=== PATIENT | female | born 1945 | race Caucasian/White ===

== ENCOUNTER → 2019-01-23 | Outpatient (CLI) | payer MEDICARE ==
[~2019-01-23] MED LIST: AMOX1TAB10 PO; ASPI-612 PO; BUME2TAB3 PO; CRESTOR40 MG PO; FERR325T14 PO; GUAI600T47 PO; HYDR-2761 PO; INSU100I11 SQ; INSU100I13 SQ; METO-239 PO; WARF4TAB64 PO; [UNRECOGNIZED DRUG - CODE] PO
--- NOTE | 2019-01-23 14:37 | RAD ---
Left second toe, 3 views, 01/23/2019: HISTORY: Diabetic ulcer The second toe is not optimally visualized on the PA or oblique projections due to plantar flexion at the PIP joint level. It is obscured on the lateral view due to the other overlying toes. On the oblique view there is a suggestion of bone destruction involving the terminal tuft of the distal phalanx. The appearance is compatible with osteomyelitis. Electronically signed by: Blake Robertson MD (01/23/2019 2:34 PM) [facility]
== END | disposition home or self-care (01) ==
LOC: PMGWOUND 10:02
PROVIDERS: ATTEND Emergency Medicine Undersea and Hyperbaric Medicine
DX: E11.621 Type 2 diabetes mellitus with foot ulcer (principal); L97.522 Non-pressure chronic ulcer of other part of left foot with fat layer exposed; L97.512 Non-pressure chronic ulcer of other part of right foot with fat layer exposed; L97.412 Non-pressure chronic ulcer of right heel and midfoot with fat layer exposed; L97.421 Non-pressure chronic ulcer of left heel and midfoot limited to breakdown of skin; E11.51 Type 2 diabetes mellitus with diabetic peripheral angiopathy without gangrene; L84 Corns and callosities; E78.5 Hyperlipidemia, unspecified; I50.9 Heart failure, unspecified; F41.9 Anxiety disorder, unspecified; F32.9 Major depressive disorder, single episode, unspecified; F17.200 Nicotine dependence, unspecified, uncomplicated; J44.9 Chronic obstructive pulmonary disease, unspecified; Z79.4 Long term (current) use of insulin
CPT/HCPCS: 11042; 73660; 93923; 97597

== ENCOUNTER → 2019-02-04 | Outpatient (CLI) | payer MEDICARE ==
[2019-02-04 12:20] LABS: PROTHROMBIN TIME PATIENT 39.2 SEC (11.7-14.0)
== END | disposition home or self-care (01) ==
LOC: LAB 11:55
PROVIDERS: ATTEND Internal Medicine Cardiovascular Disease
DX: R79.1 Abnormal coagulation profile (principal); I48.2 Chronic atrial fibrillation
CPT/HCPCS: 36415; 85610

== ENCOUNTER → 2019-02-06 | Outpatient (CLI) | payer MEDICARE ==
--- NOTE | 2019-02-06 12:25 | RAD ---
Examination: MRI of the left forefoot without contrast HISTORY: History of nonhealing ulcer second toe COMPARISON: None available. TECHNIQUE: Multiplanar, multisequence MR imaging of the left forefoot was performed without contrast. FINDINGS: There is cortical destructive changes identified in the distal phalanx of the second toe with surrounding increased intermediate T1 signal with corresponding increased T2 signal likely ostial myelitis. There is mild increased T2 signal identified in the soft tissue of the distal forefoot likely edema. There is probable small skin ulcer identified in the distal aspect of the second toe. Mild degenerative changes identified in the tarsometatarsal joints. The Lisfranc ligament appears intact. IMPRESSION: 1. Findings consistent with osteomyelitis of the distal phalanx of the second toe. Electronically signed by: Luis Duffy MD (02/06/2019 12:22 PM) [facility]
--- NOTE | 2019-02-06 14:38 | RAD ---
CHEST AP ONLY Clinical indications: MRI CLEARANCE FOR POSSIBLE PACEMAKER LEADS COMPARISON: October 02, 2011. Findings: Bilateral interstitial and nodular lung disease is evident which is chronic. It appears slightly more prominent and this most likely is due to technique. No lung consolidation or lung mass or pleural effusion is seen. No pneumothorax is evident. The heart size is chronically enlarged. The patient has had a sternotomy and cardiac valve replacement surgery since the previous study. The previously seen bipolar atrioventricular pacemaker has been removed. The mediastinum and pulmonary vasculature are stable. IMPRESSION: Since the previous study, the pacemaker has been removed. Therefore, the patient is cleared for MRI. Cardiomegaly. The patient has had a sternotomy and cardiac valve replacement since the previous study. Chronic interstitial and nodular lung disease bilaterally. It appears more prominent in comparison to the previous study and this most likely is due to differences in technique unless there are clinical findings indicative of acute lung infiltrates. Electronically signed by: Delmar Knight MD (02/06/2019 2:35 PM) [facility]
== END | disposition home or self-care (01) ==
LOC: MRI 10:28
PROVIDERS: ATTEND Emergency Medicine Undersea and Hyperbaric Medicine
DX: L97.529 Non-pressure chronic ulcer of other part of left foot with unspecified severity (principal); M19.072 Primary osteoarthritis, left ankle and foot; J84.9 Interstitial pulmonary disease, unspecified; I51.7 Cardiomegaly
CPT/HCPCS: 71045; 73718

== ENCOUNTER 2019-02-11 12:26 | Inpatient (IN) | payer MEDICARE ==
[~2019-02-11] VITALS: Ht 154.9 cm; Wt 79.0 kg
[2019-02-11 13:00] VITALS: BP 124/69
--- NOTE | 2019-02-11 13:30 | NUR ---
Wound care: Patient seen per wound care in the wound clinic today for follow up visit. Patient was febrile, stated she was not feeling well for the past 2 days, patient's breathing is shallow, with an elevated heart rate of 103 and B/P of 91/41 with moderate amount of pain in her bilateral lower extremities. In the clinic the dressings removed and all wounds cleansed, assessed, measured, and pictured. Wounds have deteriorated since last visit, with mild odor and purulent drainage. Spoke with Dr. Robles regarding findings. Dr. Robles recommending hospital admission. Patient agreeable. Dr. Robles notified Dr. Vincent and warehouse sorter. Patient to be admitted. All diabetic wounds on bilateral feet redressed with Iodoflex, Aquacel Ag, ABDs, and Kerlix. Photos, dressing change instructions, extra Iodoflex (dressings) and progress note all printed and placed in envelope to be sent with patient and given to the RN on arrival of the floor. patient notified family of admission. Patient assisted to ER to register for admit via wheelchair. Will follow patient regarding wound care.
[2019-02-11] MEDS ORDERED: LACTULOSE 20 GM/30 ML SOLUTION. PO PRN (14:15)
[2019-02-11] MEDS ORDERED: ACETAMINOPHEN 325 MG TABLET. PO PRN (14:15)
--- NOTE | 2019-02-11 14:16 | PDOC1 ---
History and Physical Date of Admission Date of Admission DATE: 02/11/19 TIME: 14:14 Identification/Chief Complaint Chief Complaint Bilateral leg cellulitis Source Source: Patient History of Present Illness History of Present Illness 73 yo F w/ PMHx DM, dCHF, PAD, AVR, recent pacemaker removal, and multiple foot ulcers who presents directly from wound clinic with RLE diminished pulses, foul smell to 2 open wounds, redness, warmth, and left foot with 2 ulcers at 2nd DIP and 5th MTP. Her most significant ulceration involving the digit tip of the second toe of the left foot. She has underlying exposed bone and MR images are consistent with osteomyelitis. 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 She has multiple other foot ulcers. She overall feels poorly recently, has been admitted to [facility] earlier this year, had a pacemaker removed and sternotomy and valve replacement, is now anticoagulated on warfarin for this. She is not an excellent historian and gives me little additional data. She has 2 days of malaise with fever/chills, but no recent sick contacts. She does feel short of breath, notes she feels she may be having heart failure currently. Past Medical History Cardiovascular: CAD, CHF, HTN, Aortic stenosis Pulmonary: No pertinent hx CENTRAL NERVOUS SYSTEM: Periperal neuropathy GI: No pertinent hx Heme/Onc: No pertinent hx Hepatobiliary: No pertinent hx Psych: No pertinent hx Musculoskeletal: Weakness Rheumatologic: No pertinent hx Infectious disease: No pertinent hx ENT: No pertinent hx Renal/: No pertinent hx Endocrine: Diabetes Dermatology: Cellulitis Past Surgical History Past Surgical History: Pacemaker, Other (AVR) Family History Family History: Family History Unknown Social History Smoke: 1 pack per day ALCOHOL: none Drugs: None Allergies Allergies: Coded Allergies: No Known Drug Allergies (Unverified , 02/11/19) ROS General: YES: Chills, Fatigue, Malaise; No: Night Sweats, Appetite, Other PSYCHOLOGICAL ROS: YES: Depression; No: Anxiety, Behavioral Disorder, Concentration difficultie, Decreased libido , Disorientation, Hallucinations, Hostility, Irritablity, Memory difficulties, Mood Swings, Obsessive thoughts, Physical abuse, Sexual abuse, Sleep disturbances, Suicidal ideation, Other Eyes: No Blurry vision, No Decreased vision, No Double vision, No Dry eyes, No Excessive tearing, No Eye Pain, No Itchy Eyes, No Loss of vision, No Photophobia , No Scotomata, No Uses contacts, No Uses glasses, No Other HEENT: No: Heacaches, Visual Changes, Hearing change, Nasal congestion, Nasal discharge, Oral lesions, Sinus pain, Sore Throat, Epistaxis, Sneezing, Snoring, Tinnitus, Vertigo, Vocal changes, Other ALLERGY AND IMMUNOLOGY: No: Hives, Insect Bite Sensitivity, Itchy/Watery Eyes, Nasal Congestion, Post Nasal Drip, Seasonal Allergies, Other Hematological and Lymphatic: No: Bleeding Problems, Blood Clots, Blood Transfusions, Brusing, Night Sweats, Pallor, Swollen Lymph Nodes, Other ENDOCRINE: No: Breast Changes, Galactorrhea, Hair Pattern Changes, Hot Flashes , Malaise/lethargy, Mood Swings, Palpitations, Polydipsia/polyuria, Skin Changes , Temperature Intolerance, Unexpected Weight Changes, Other Breast: No New/Changing Breast Lumps, No Nipple changes, No Nipple discharge, No Other Respiratory: YES: Shortness of breath; No: Cough, Hemoptysis, Orthopnea, Pleuritic Pain, SOB with excertion, Sputum Changes, Stridor, Tachypnea, Wheezing, Other Cardiovascular: yes Palpitations, yes Paroxysmal Noc. Dyspnea, yes Edema Gastrointestinal: Yes Nausea; No Vomiting, No Abdominal Pain, No Diarrhea, No Constipation, No Melena, No Hematochezia, No Other Physical Exam General: Alert, Oriented X3, Cooperative, No acute distress HEENT: Atraumatic, PERRLA, EOMI, Mucous membr. moist/pink Lungs: Other (Bilateral scattered wheezes) Heart: S1S2, murmurs (4/6 GIOVANNY murmur) Abdomen: Normal bowel sounds, Soft, No tenderness, No hepatosplenomegaly, No masses Extremities: Other (2 ulcers right foot, decreased pulses. Callous on 2nd left toe and 5th MTP) Neuro: Normal speech, Strength at 5/5 X4 ext, Normal tone, Cranial nerves 3-12 NL, Reflexes 2+ Psych/Mental Status: Mental status NL, Mood NL Images Images MRI Left foot 02/06/19 - 1. Findings consistent with osteomyelitis of the distal phalanx of the second toe. VTE Prophylaxis Ordered VTE Prophylaxis Devices: Contraindicated VTE Pharmacological Prophylaxi: Yes Assessment/Plan Assessment/Plan A/P: LE cellulitis - RLE worse than left, empiric coverage for strep and staph, consult ID, will obtain cultures first. Follow cultures and CBC Left 2nd toe OM - will consult vascular surgery, she need amputation DM - she does not know her meds, will place on basal bolus plus regimen dCHF - she feels in mild exacerbation, will assess volume status and give IV lasix PAD - confirmed at [facility] on 12/07/18, will obtain records s/p AVR - looks aortic on recent CXR and sounds mechanical, INR daily, hold coumadin, will bridge on heparin when she is subtherapeutic in prep for surgery. Confirm valve with echo Recent pacemaker removal - will obtain blood cultures Multiple foot ulcers - wound care following FEN - ADA diet PPX - therapeutic INR, will start heparin GTT once subtherapeutic FULL CODE Inpatient for bilateral cellulitis and diabetic foot ulcers at least 2 midnights SHREYA FRIAS MD Feb 11, 2019 14:16
[2019-02-11 14:59] VITALS: BP 126/71
--- NOTE | 2019-02-11 15:07 | PDOC2 ---
CONSULT Date of Consult Date of Consult DATE: 02/11/19 TIME: 14:56 Reason for Consult Reason for Consult: Bilateral foot wounds, second toe tip ulceration left foot with underlying osteomyelitis Referring Physician Referring Physician: Melisa Identification/Chief Complaint Chief Complaint Osteomyelitis second toe left foot History of Present Illness Reason for Visit: 73-year-old female with multiple foot wounds. Admitted for evaluation treatment of osteomyelitis of the second toe tip of the left foot. Current Medications Current Medications Current Medications Ondansetron HCl (Zofran) 4 mg PRN Q6HRS PRN IV NAUSEA/VOMITING; Start 02/11/19 at 14:15 Acetaminophen/ Hydrocodone Bitart (Lortab 5/325) 1 tab PRN Q4HRS PRN PO MILD PAIN; Start 02/11/19 at 14:15 Acetaminophen (Tylenol) 650 mg PRN Q6HRS PRN PO Headaches, Temp > 101.5F; Start 02/11/19 at 14:15 Senna/Docusate Sodium (Senna Plus) 1 tab BID PO ; Start 02/11/19 at 21:00 Lactulose (Lactulose) 20 gm PRN Q12HR PRN PO CONSTIPATION; Start 02/11/19 at 14 :15 Heparin Sodium (Porcine) (Heparin Sodium) 5,000 unit Q8HRS SQ ; Start 02/11/19 at 22:00 Allergies Allergies: Coded Allergies: No Known Drug Allergies (Unverified , 02/11/19) Physical Exam General: Alert, No acute distress Abdomen: Normal bowel sounds Extremities: No clubbing, No cyanosis, No edema, Normal pulses, No tenderness/ swelling MUSCULOSKELETAL: Other (syndactyly of the second and third toe both feet. Right lateral fifth metatarsal wound. Fascial ulceration plantar surface of the right foot) Images Images MRIs consistent with distal digit tip osteomyelitis second toe left foot Assessment/Plan Assessment/Plan 73-year-old female with multiple foot ulcers. Her most significant ulceration involving the digit tip of the second toe of the left foot. She has underlying exposed bone and MR images are consistent with osteomyelitis. 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 She has multiple other foot ulcers. Her pulse examination shows palpable femoral pulses and pedal pulses on the left and this diminished femoral pulse and absent pedal pulses on the right. Have recommended additional noninvasive vascular studies. Since she has good perfusion (think she should heal a digit amputation. Recommended second and third toe amputations of the left foot with primary closure and wound debridement. Additional imaging studies and intervention regarding her right leg to achieve wound healing at this at the foot level. I cannot appreciate pedal pulses on the right and she does have a slightly diminished femoral pulse on exam. Her graft and operative procedure, risks, complications, and alternative therapies have all been reviewed with the patient. She understands and agrees to proceed as recommended. We'll schedule digit ulcer and bilateral leg wounds debridement in the near future. PATTI BA MD Feb 11, 2019 15:07
--- NOTE | 2019-02-11 15:08 | PDOC ---
Provider Note Provider Note Pt seen and examined Full consult to follow Thank you FLAVIA LAO MD Feb 11, 2019 15:07
--- NOTE | 2019-02-11 16:23 | NUR ---
The patient, RENAN LOPEZ, 73 y/o, F admitted by SHREYA FRIAS MD, was given written information regarding hospital policies, unit procedures and contact persons. Valuables were checked and charted.
[2019-02-11] MEDS: MICAFUNGIN 100 MG in IV DEXTROSE 5% 100ML 100 ML IV SCH (16:30)
[2019-02-11] MEDS: PIPERACILLIN/TAZOBACTAM 3.375 GM in IV NORMAL SALINE 50ML 50 ML IV SCH (17:14)
[2019-02-11] MEDS: ONDANSETRON PF 4 MG/2 ML VIAL. IV PRN (18:07)
[2019-02-11 19:00] VITALS: BP 121/71
[2019-02-11] MEDS ORDERED: DEXTROSE 50% 25 GM / 50ML DISP.SYRIN. IV PRN (19:45)
[2019-02-11] MEDS: SENNOSIDES/DOCUSATE 8.6/50MG TABLET. PO SCH (20:47)
[2019-02-11] MEDS: LINEZOLID 600 MG TABLET PO SCH (20:47)
[2019-02-11] MEDS: INSULIN GLARGINE 300 UNITS/3 ML INSULN.PEN. SQ SCH (21:01)
[2019-02-11] MEDS: HEPARIN for SUB-Q USE 5,000 UNIT/ML VIAL. SQ SCH (21:02)
[2019-02-11] MEDS: ZOLPIDEM 5 MG TABLET. PO PRN (22:19)
[2019-02-11 23:00] VITALS: BP 147/111
[2019-02-12] MEDS: HEPARIN for SUB-Q USE 5,000 UNIT/ML VIAL. SQ SCH (01:38)
[2019-02-12 03:00] VITALS: BP 95/53
[2019-02-12] MEDS: ONDANSETRON PF 4 MG/2 ML VIAL. IV PRN (06:11)
[2019-02-12] MEDS: PIPERACILLIN/TAZOBACTAM 3.375 GM in IV NORMAL SALINE 50ML 50 ML IV SCH ×6 (06:11→23:55)
[2019-02-12 07:00] VITALS: BP 116/50
[2019-02-12 07:29] LABS: BASO # 0.1 x10^3/uL (0.0-0.2); BASO % 1 % (0-3); EOS # 0.1 x10^3/uL (0.0-0.7); EOS % 1 % (0-3); HEMATOCRIT 33.6 % (36.0-47.0); HEMOGLOBIN 10.6 g/dL (12.0-15.5); LYMPH # 1.2 x10^3/uL (1.0-4.8); LYMPH % 14 % (24-48); MEAN CORPUSCULAR HEMOGLOBIN 26 pg (25-35); MEAN CORPUSCULAR HGB CONC 32 g/dL (31-37); MEAN CORPUSCULAR VOLUME 82 fL (79-100); MONO # 0.7 x10^3/uL (0.0-1.1); MONO % 9 % (0-9); NEUT # 6.4 x10^3uL (1.8-7.7); NEUT % 75 % (31-73); PLATELET COUNT 212 x10^3/uL (140-400); RED CELL DISTRIBUTION WIDTH 20.6 % (11.5-14.5); WHITE BLOOD COUNT 8.4 x10^3/uL (4.0-11.0)
[2019-02-12 07:48] LABS: ALBUMIN 2.2 g/dL (3.4-5.0); ALBUMIN/GLOBULIN RATIO 0.4 (1.0-1.7); CALCIUM 8.1 mg/dL (8.5-10.1); CREATININE 2.1 mg/dL (0.6-1.0); GFR 23.2; POTASSIUM 4.7 mmol/L (3.5-5.1); TOTAL BILIRUBIN 0.6 mg/dL (0.2-1.0); TOTAL PROTEIN 7.5 g/dL (6.4-8.2)
[2019-02-12] MEDS: INSULIN LISPRO 300 UNITS/3 ML INSULN.PEN. SQ SCH ×3 (08:00→17:00)
[2019-02-12] MEDS: SENNOSIDES/DOCUSATE 8.6/50MG TABLET. PO SCH ×2 (09:00→21:00)
[2019-02-12] MEDS: LINEZOLID 600 MG TABLET PO SCH ×2 (09:07→20:57)
--- NOTE | 2019-02-12 09:13 | PDOC ---
Infectious Disease Note Vital Signs: Vital Signs Vital Signs Date Time Temp Pulse Resp B/P (MAP) Pulse Ox O2 Delivery O2 Flow Rate FiO2 02/12/19 07:00 97.7 89 17 116/50 (72) 95 Room Air 97.7 Medications: Inpatient Meds: Current Medications Medications (Trade) Dose Ordered Sig/Lili Start Time Stop Time Status Last Admin Dose Admin Acetaminophen (Tylenol) 650 mg PRN Q6HRS PRN 02/11/19 14:15 Acetaminophen/ Hydrocodone Bitart (Lortab 5/325) 1 tab PRN Q4HRS PRN 02/11/19 14:15 Dextrose (Dextrose 50%-Water Syringe) 12.5 gm PRN Q15MIN PRN 02/11/19 19:45 Heparin Sodium (Porcine) (Heparin Sodium) 5,000 unit Q8HRS 02/11/19 22:00 Insulin Glargine (Lantus) 10 units QHS 02/11/19 21:00 02/11/19 21:01 10 UNITS Insulin Human Lispro (HumaLOG) 0-7 UNITS TIDWMEALS 02/12/19 08:00 Lactulose (Lactulose) 20 gm PRN Q12HR PRN 02/11/19 14:15 Linezolid (Zyvox) 600 mg BID 02/11/19 21:00 02/12/19 09:07 600 MG Micafungin Sodium 100 mg/Dextrose 100 ml @ 100 mls/hr Q24H 02/11/19 16:00 02/11/19 16:30 100 MLS/HR Ondansetron HCl (Zofran) 4 mg PRN Q6HRS PRN 02/11/19 14:15 02/12/19 06:11 4 MG Piperacillin Sod/ Tazobactam Sod 3.375 gm/Sodium Chloride 50 ml @ 100 mls/hr Q6HRS 02/11/19 18:00 02/12/19 06:11 100 MLS/HR Senna/Docusate Sodium (Senna Plus) 1 tab BID 02/11/19 21:00 02/11/19 20:47 1 TAB Zolpidem Tartrate (Ambien) 5 mg PRN QHS PRN 02/11/19 21:15 02/11/19 22:19 5 MG Labs: Lab Laboratory Tests Test 02/11/19 14:35 02/11/19 16:24 02/11/19 20:30 02/12/19 06:00 Prothrombin Time 36.0 SEC (11.7-14.0) 35.0 SEC (11.7-14.0) Prothromb Time International Ratio 3.6 (0.8-1.1) 3.5 (0.8-1.1) Glucose (Fingerstick) 256 mg/dL (70-99) 242 mg/dL (70-99) Test 02/12/19 06:10 02/12/19 07:13 White Blood Count 8.4 x10^3/uL (4.0-11.0) Red Blood Count 4.10 x10^6/uL (3.50-5.40) Hemoglobin 10.6 g/dL (12.0-15.5) Hematocrit 33.6 % (36.0-47.0) Mean Corpuscular Volume 82 fL (79-100) Mean Corpuscular Hemoglobin 26 pg (25-35) Mean Corpuscular Hemoglobin Concent 32 g/dL (31-37) Red Cell Distribution Width 20.6 % (11.5-14.5) Platelet Count 212 x10^3/uL (140-400) Neutrophils (%) (Auto) 75 % (31-73) Lymphocytes (%) (Auto) 14 % (24-48) Monocytes (%) (Auto) 9 % (0-9) Eosinophils (%) (Auto) 1 % (0-3) Basophils (%) (Auto) 1 % (0-3) Neutrophils # (Auto) 6.4 x10^3uL (1.8-7.7) Lymphocytes # (Auto) 1.2 x10^3/uL (1.0-4.8) Monocytes # (Auto) 0.7 x10^3/uL (0.0-1.1) Eosinophils # (Auto) 0.1 x10^3/uL (0.0-0.7) Basophils # (Auto) 0.1 x10^3/uL (0.0-0.2) Sodium Level 130 mmol/L (136-145) Potassium Level 4.7 mmol/L (3.5-5.1) Chloride Level 96 mmol/L (98-107) Carbon Dioxide Level 22 mmol/L (21-32) Anion Gap 12 (6-14) Blood Urea Nitrogen 43 mg/dL (7-20) Creatinine 2.1 mg/dL (0.6-1.0) Estimated GFR (Cockcroft-Gault) 23.2 BUN/Creatinine Ratio 20 (6-20) Glucose Level 153 mg/dL (70-99) Calcium Level 8.1 mg/dL (8.5-10.1) Total Bilirubin 0.6 mg/dL (0.2-1.0) Aspartate Amino Transf (AST/SGOT) 32 U/L (15-37) Alanine Aminotransferase (ALT/SGPT) 21 U/L (14-59) Alkaline Phosphatase 212 U/L (46-116) Total Protein 7.5 g/dL (6.4-8.2) Albumin 2.2 g/dL (3.4-5.0) Albumin/Globulin Ratio 0.4 (1.0-1.7) Glucose (Fingerstick) 146 mg/dL (70-99) Plan: Plan of Care duplicate note FLAVIA LAO MD Feb 12, 2019 09:13
--- NOTE | 2019-02-12 09:54 | CONS ---
DATE OF CONSULTATION: 02/11/2019 REFERRING PHYSICIAN: Dr. Vincent. REASON FOR CONSULTATION: Left second toe osteomyelitis, multiple diabetic foot ulcers. HISTORY OF PRESENT ILLNESS: A 73-year-old female with history of diabetes with neuropathy, onychomycosis, multiple chronic nonhealing foot wounds, who used to follow up with wound team on a regular basis, was sent from the wound clinic today for evaluation and treatment of osteomyelitis of the second toe tip of the left foot. The patient also has multiple ulcerations of the foot on the plantar aspect and the right lateral fifth toe area. She was having pain in both the feet. The patient is not a good historian. She says she felt a little feverish, no chills, no nausea, no vomiting, no diarrhea, and no abdominal pain. She denies being on antibiotics recently. She had MRI of the left foot, which showed osteomyelitis of the second toe. Vascular Surgery has been consulted, who is evaluating the patient also. PAST MEDICAL HISTORY: Cardiac disease, diabetes mellitus with neuropathy, onychomycosis, congestive heart failure, pacemaker replacement, valve replacement in 2006, and pacemaker removed. Hyperlipidemia, atrial fibrillation, hypertension, bronchitis, hysterectomy, oophorectomy, salpingectomy, history of UTI, history of incontinence, history of DJD, chronic back pain, depression, anxiety, tobacco use. ALLERGIES: No known drug allergies. SOCIAL HISTORY: Current smoker. Denies ETOH. Denies illicit drug use. Lives at home with family, has a cat. FAMILY HISTORY: As per HPI. REVIEW OF SYSTEMS: Negative except for HPI, though limited. PHYSICAL EXAMINATION: VITAL SIGNS: Temperature 97.9, pulse 84, respiratory rate 18, blood pressure 126/71, oxygen saturation 95% on room air. GENERAL: Alert, oriented female in no acute distress. HEENT: Normocephalic, atraumatic. Anicteric. Poor dentition. No thrush. NECK: Supple. LUNGS: Clear. HEART: S1, S2. ABDOMEN: Soft. Bowel sounds present, nondistended. EXTREMITIES: No edema, no clubbing, no cyanosis. Ulceration on the plantar aspect of the right foot, ulceration at the tip of the second toe of the left foot, multiple foot ulcers, syndactyly of the second and the third toe bilaterally, onychomycosis. CENTRAL NERVOUS SYSTEM: Moves all 4 extremities. Alert, oriented x 3, grossly nonfocal. PSYCHIATRIC: Cooperative, appropriate mood and affect. LABORATORY DATA: ESR 25. Sodium 134, potassium 4.7, chloride 98, bicarbonate 27, BUN 28, creatinine 1.2, glucose 366 and today's 256, calcium 8.9, albumin 2.7. Prealbumin 13.7, INR 3.6. CURRENT MEDICATIONS: Insulin, heparin, linezolid, senna, dextrose, Peptazol, micafungin, lactulose, acetaminophen, hydrocodone, Zofran. IMAGING: Lower extremity MRI 02/06/2019, findings consistent with osteomyelitis of the distal phalanx of the second toe, there is a probable small skin ulcer identified in the distal aspect of second toe, mild degenerative changes identified at the tarsometatarsal joint. Chest x-ray shows cardiomegaly. There is sternotomy and cardiac valve replacement since the previous surgery. Chronic interstitial and nodular lung disease bilaterally, it appears more prominent in comparison with the previous study and most likely due to differences in technique. Toe x-ray shows the second toe is not optimally visualized, is obscured on the lateral view due to overlying toes. On the oblique view, there is suggestion of bone destruction involving the terminal tuft of the distal phalanx. This appearance is compatible with osteomyelitis. ASSESSMENT: A 73-year-old female with diabetes with neuropathy and multiple chronic nonhealing diabetic foot ulcers. IMPRESSION: 1. Left second toe osteomyelitis. 2. Multiple bilateral foot ulcers. 3. Onychomycosis. 4. Diabetes with peripheral neuropathy. 5. Tobacco user. 6. Coronary artery disease, status post valve replacement. 7. Peripheral vascular disease. 8. Atrial fibrillation RECOMMENDATIONS: 1. We will start the patient on empiric Zosyn, Zyvox, micafungin. 2. Vascular Surgery is evaluating the patient. They have recommended second and third toe amputation of the left foot with primary closure and wound debridement. 3. The patient is awaiting vascular evaluation. 4. Monitor labs in a.m. and cultures. 5. Continue wound care per Vascular. 6. Continue supportive care. Discussed with RN. Thank you, Dr. Vincent, for consulting Infectious Disease to participate in this patient's care. If you have any questions, do not hesitate to contact me. FLAVIA LAO MD DR: AMBREEN/eddie JOB#: [id number] / [id number] MARCY
--- NOTE | 2019-02-12 10:18 | PDOC ---
Infectious Disease Note Subjective: Subjective Pt c/o pain in both feet Has some nausea, no vomiting no f/c/v/d/abdo pain/sob ROS: ROS Negative except for above. Vital Signs: Vital Signs Vital Signs Date Time Temp Pulse Resp B/P (MAP) Pulse Ox O2 Delivery O2 Flow Rate FiO2 02/12/19 07:00 97.7 89 17 116/50 (72) 95 Room Air 97.7 Physical Exam: PHYSICAL EXAM GENERAL: Alert, oriented female in nad HEENT: Normocephalic, atraumatic. Anicteric. Poor dentition. No thrush. NECK: Supple. LUNGS: Clear. HEART: S1, S2. ABDOMEN: Soft. Bowel sounds present, nondistended. EXTREMITIES: No edema, no clubbing, no cyanosis.Bilateral foot ulcerations, Ulceration on the plantar aspect of the right foot, ulceration at the tip of the second toe of the left foot, multiple foot ulcers, syndactyly of the second and the third toe bilaterally, onychomycosis. CENTRAL NERVOUS SYSTEM: Moves all 4 extremities. Alert, oriented x 3, grossly nonfocal. PSYCHIATRIC: Cooperative, appropriate mood and affect. Medications: Inpatient Meds: Current Medications Medications (Trade) Dose Ordered Sig/Lili Start Time Stop Time Status Last Admin Dose Admin Acetaminophen (Tylenol) 650 mg PRN Q6HRS PRN 02/11/19 14:15 Acetaminophen/ Hydrocodone Bitart (Lortab 5/325) 1 tab PRN Q4HRS PRN 02/11/19 14:15 Dextrose (Dextrose 50%-Water Syringe) 12.5 gm PRN Q15MIN PRN 02/11/19 19:45 Fentanyl Citrate (Fentanyl 2ml Vial) 50 mcg PRN Q5MIN PRN 02/13/19 07:00 02/14/19 06:59 Heparin Sodium (Porcine) (Heparin Sodium) 5,000 unit Q8HRS 02/11/19 22:00 Hydromorphone HCl (Dilaudid) 0.5 mg PRN Q10MIN PRN 02/13/19 07:00 02/14/19 06:59 Insulin Glargine (Lantus) 10 units QHS 02/11/19 21:00 02/11/19 21:01 10 UNITS Insulin Human Lispro (HumaLOG) 0-7 UNITS TIDWMEALS 02/12/19 08:00 Lactulose (Lactulose) 20 gm PRN Q12HR PRN 02/11/19 14:15 Lidocaine HCl (Xylocaine-Mpf 1% 2ml Vial) 2 ml PRN 1X PRN 02/13/19 07:00 02/14/19 06:59 Lidocaine HCl 48 ml/Sodium Bicarbonate 12 meq/Miscellaneous 60 ml @ 60 mls/hr 1X ONCE 02/13/19 06:00 02/13/19 06:59 Linezolid (Zyvox) 600 mg BID 02/11/19 21:00 02/12/19 09:07 600 MG Micafungin Sodium 100 mg/Dextrose 100 ml @ 100 mls/hr Q24H 02/11/19 16:00 02/11/19 16:30 100 MLS/HR Morphine Sulfate (Morphine Sulfate) 1 mg PRN Q10MIN PRN 02/13/19 07:00 02/14/19 06:59 Ondansetron HCl (Zofran) 4 mg PRN Q6HRS PRN 02/13/19 07:00 02/14/19 06:59 Piperacillin Sod/ Tazobactam Sod 3.375 gm/Sodium Chloride 50 ml @ 100 mls/hr Q6HRS 02/11/19 18:00 02/12/19 06:11 100 MLS/HR Prochlorperazine Edisylate (Compazine) 5 mg PACU PRN PRN 02/13/19 07:00 02/14/19 06:59 Ringer's Solution 1,000 ml @ 30 mls/hr Q24H 02/13/19 07:00 02/13/19 18:59 Senna/Docusate Sodium (Senna Plus) 1 tab BID 02/11/19 21:00 02/11/19 20:47 1 TAB Zolpidem Tartrate (Ambien) 5 mg PRN QHS PRN 02/11/19 21:15 02/11/19 22:19 5 MG Labs: Lab Laboratory Tests Test 02/11/19 14:35 02/11/19 16:24 02/11/19 20:30 02/12/19 06:00 Prothrombin Time 36.0 SEC (11.7-14.0) 35.0 SEC (11.7-14.0) Prothromb Time International Ratio 3.6 (0.8-1.1) 3.5 (0.8-1.1) Glucose (Fingerstick) 256 mg/dL (70-99) 242 mg/dL (70-99) Test 02/12/19 06:10 02/12/19 07:13 White Blood Count 8.4 x10^3/uL (4.0-11.0) Red Blood Count 4.10 x10^6/uL (3.50-5.40) Hemoglobin 10.6 g/dL (12.0-15.5) Hematocrit 33.6 % (36.0-47.0) Mean Corpuscular Volume 82 fL (79-100) Mean Corpuscular Hemoglobin 26 pg (25-35) Mean Corpuscular Hemoglobin Concent 32 g/dL (31-37) Red Cell Distribution Width 20.6 % (11.5-14.5) Platelet Count 212 x10^3/uL (140-400) Neutrophils (%) (Auto) 75 % (31-73) Lymphocytes (%) (Auto) 14 % (24-48) Monocytes (%) (Auto) 9 % (0-9) Eosinophils (%) (Auto) 1 % (0-3) Basophils (%) (Auto) 1 % (0-3) Neutrophils # (Auto) 6.4 x10^3uL (1.8-7.7) Lymphocytes # (Auto) 1.2 x10^3/uL (1.0-4.8) Monocytes # (Auto) 0.7 x10^3/uL (0.0-1.1) Eosinophils # (Auto) 0.1 x10^3/uL (0.0-0.7) Basophils # (Auto) 0.1 x10^3/uL (0.0-0.2) Sodium Level 130 mmol/L (136-145) Potassium Level 4.7 mmol/L (3.5-5.1) Chloride Level 96 mmol/L (98-107) Carbon Dioxide Level 22 mmol/L (21-32) Anion Gap 12 (6-14) Blood Urea Nitrogen 43 mg/dL (7-20) Creatinine 2.1 mg/dL (0.6-1.0) Estimated GFR (Cockcroft-Gault) 23.2 BUN/Creatinine Ratio 20 (6-20) Glucose Level 153 mg/dL (70-99) Calcium Level 8.1 mg/dL (8.5-10.1) Total Bilirubin 0.6 mg/dL (0.2-1.0) Aspartate Amino Transf (AST/SGOT) 32 U/L (15-37) Alanine Aminotransferase (ALT/SGPT) 21 U/L (14-59) Alkaline Phosphatase 212 U/L (46-116) Total Protein 7.5 g/dL (6.4-8.2) Albumin 2.2 g/dL (3.4-5.0) Albumin/Globulin Ratio 0.4 (1.0-1.7) Glucose (Fingerstick) 146 mg/dL (70-99) Objective: Assessment: 1. Left second toe osteomyelitis. 2. Multiple bilateral foot ulcers. 3. Onychomycosis. 4. Diabetes with peripheral neuropathy. 5. Tobacco user. 6. Coronary artery disease, status post valve replacement. 7. Peripheral vascular disease. Plan: Plan of Care Zosyn, Zyvox, micafungin. Vascular Surgery planning for second and third toe amputation of the left foot with primary closure and wound debridement. Monitor labs in a.m. and cultures. Continue wound care per Vascular. Continue supportive care. Discussed with RN. FLAVIA LAO MD Feb 12, 2019 10:18
--- NOTE | 2019-02-12 10:23 | PDOC ---
PROGRESS NOTES History of Present Illness History of Present Illness VTE Prophylaxis Ordered VTE Prophylaxis Devices: Contraindicated VTE Pharmacological Prophylaxi: Yes Assessment/Plan Assessment/Plan A/P: LE cellulitis - RLE worse than left, empiric coverage for strep and staph, consult ID, will obtain cultures first. Follow cultures and CBC Left 2nd toe OM - will consult vascular surgery, // amputation DM - she does not know her meds, will place on basal bolus plus regimen dCHF - she feels in mild exacerbation, prn IV lasix PAD - confirmed at [facility] on 12/07/18, obtain records s/p AVR - looks aortic on recent CXR and sounds mechanical, INR daily, hold coumadin, will bridge on heparin when she is subtherapeutic in prep for surgery. Confirm valve with echo Recent pacemaker removal - will obtain blood cultures Multiple foot ulcers - wound care following Left second toe osteomyelitis. mri Findings consistent with osteomyelitis of the distal phalanx of the second toe. She has underlying exposed bone Multiple bilateral foot ulcers. Onychomycosis. Diabetes with peripheral neuropathy. Tobacco user. Coronary artery disease, status post valve replacement. Peripheral vascular disease. severe FEN - ADA diet PPX - therapeutic INR, will start heparin GTT once subtherapeutic FULL CODE Inpatient for bilateral cellulitis and diabetic foot ulcers at least 2 midnights plan iv Zosyn, Zyvox, micafungin. Vascular Surgery planning for second and third toe amputation of the left foot with primary closure and wound debridement. 47 min pt exam, chart review, > 50% of time with pt exam, chart review, pt care coordination Vitals Vitals Vital Signs Date Time Temp Pulse Resp B/P (MAP) Pulse Ox O2 Delivery O2 Flow Rate FiO2 02/12/19 07:00 97.7 89 17 116/50 (72) 95 Room Air 97.7 Physical Exam Physical Exam GENERAL: Alert, oriented female in nad HEENT: Normocephalic, atraumatic. Anicteric. Poor dentition. No thrush. NECK: Supple. LUNGS: Clear. HEART: S1, S2. ABDOMEN: Soft. Bowel sounds present, nondistended. EXTREMITIES: No edema, no clubbing, no cyanosis.Bilateral foot ulcerations, Ulceration on the plantar aspect of the right foot, ulceration at the tip of the second toe of the left foot, multiple foot ulcers, syndactyly of the second and the third toe bilaterally, onychomycosis. CENTRAL NERVOUS SYSTEM: Moves all 4 extremities. Alert, oriented x 3, grossly nonfocal. PSYCHIATRIC: Cooperative, appropriate mood and affect. General: Alert, Oriented X3, Cooperative, No acute distress Heart: Regular rate, Normal S1, Normal S2 Lungs: Clear Abdomen: Normal bowel sounds, Soft, No tenderness, No hepatosplenomegaly, No masses Extremities: Other (2 ulcers right foot, decreased pulses. Callous on 2nd left toe and 5th MTP) Labs LABS HISTORY: History of nonhealing ulcer second toe COMPARISON: None available. TECHNIQUE: Multiplanar, multisequence MR imaging of the left forefoot was performed without contrast. FINDINGS: There is cortical destructive changes identified in the distal phalanx of the second toe with surrounding increased intermediate T1 signal with corresponding increased T2 signal likely ostial myelitis. There is mild increased T2 signal identified in the soft tissue of the distal forefoot likely edema. There is probable small skin ulcer identified in the distal aspect of the second toe. Mild degenerative changes identified in the tarsometatarsal joints. The Lisfranc ligament appears intact. IMPRESSION: 1. Findings consistent with osteomyelitis of the distal phalanx of the second toe. Electronically signed by: Luis Duffy MD (02/06/2019 12:22 PM) [id number] Laboratory Tests Test 02/11/19 14:35 02/11/19 16:24 02/11/19 20:30 02/12/19 06:00 Prothrombin Time 36.0 SEC (11.7-14.0) 35.0 SEC (11.7-14.0) Prothromb Time International Ratio 3.6 (0.8-1.1) 3.5 (0.8-1.1) Glucose (Fingerstick) 256 mg/dL (70-99) 242 mg/dL (70-99) Test 02/12/19 06:10 02/12/19 07:13 White Blood Count 8.4 x10^3/uL (4.0-11.0) Red Blood Count 4.10 x10^6/uL (3.50-5.40) Hemoglobin 10.6 g/dL (12.0-15.5) Hematocrit 33.6 % (36.0-47.0) Mean Corpuscular Volume 82 fL (79-100) Mean Corpuscular Hemoglobin 26 pg (25-35) Mean Corpuscular Hemoglobin Concent 32 g/dL (31-37) Red Cell Distribution Width 20.6 % (11.5-14.5) Platelet Count 212 x10^3/uL (140-400) Neutrophils (%) (Auto) 75 % (31-73) Lymphocytes (%) (Auto) 14 % (24-48) Monocytes (%) (Auto) 9 % (0-9) Eosinophils (%) (Auto) 1 % (0-3) Basophils (%) (Auto) 1 % (0-3) Neutrophils # (Auto) 6.4 x10^3uL (1.8-7.7) Lymphocytes # (Auto) 1.2 x10^3/uL (1.0-4.8) Monocytes # (Auto) 0.7 x10^3/uL (0.0-1.1) Eosinophils # (Auto) 0.1 x10^3/uL (0.0-0.7) Basophils # (Auto) 0.1 x10^3/uL (0.0-0.2) Sodium Level 130 mmol/L (136-145) Potassium Level 4.7 mmol/L (3.5-5.1) Chloride Level 96 mmol/L (98-107) Carbon Dioxide Level 22 mmol/L (21-32) Anion Gap 12 (6-14) Blood Urea Nitrogen 43 mg/dL (7-20) Creatinine 2.1 mg/dL (0.6-1.0) Estimated GFR (Cockcroft-Gault) 23.2 BUN/Creatinine Ratio 20 (6-20) Glucose Level 153 mg/dL (70-99) Calcium Level 8.1 mg/dL (8.5-10.1) Total Bilirubin 0.6 mg/dL (0.2-1.0) Aspartate Amino Transf (AST/SGOT) 32 U/L (15-37) Alanine Aminotransferase (ALT/SGPT) 21 U/L (14-59) Alkaline Phosphatase 212 U/L (46-116) Total Protein 7.5 g/dL (6.4-8.2) Albumin 2.2 g/dL (3.4-5.0) Albumin/Globulin Ratio 0.4 (1.0-1.7) Glucose (Fingerstick) 146 mg/dL (70-99) Comment Review of Relevant I have reviewed the following items hernandez (where applicable) has been applied. Labs Laboratory Tests Test 02/11/19 14:35 02/11/19 16:24 02/11/19 20:30 02/12/19 06:00 Prothrombin Time 36.0 SEC (11.7-14.0) 35.0 SEC (11.7-14.0) Prothromb Time International Ratio 3.6 (0.8-1.1) 3.5 (0.8-1.1) Glucose (Fingerstick) 256 mg/dL (70-99) 242 mg/dL (70-99) Test 02/12/19 06:10 02/12/19 07:13 White Blood Count 8.4 x10^3/uL (4.0-11.0) Red Blood Count 4.10 x10^6/uL (3.50-5.40) Hemoglobin 10.6 g/dL (12.0-15.5) Hematocrit 33.6 % (36.0-47.0) Mean Corpuscular Volume 82 fL (79-100) Mean Corpuscular Hemoglobin 26 pg (25-35) Mean Corpuscular Hemoglobin Concent 32 g/dL (31-37) Red Cell Distribution Width 20.6 % (11.5-14.5) Platelet Count 212 x10^3/uL (140-400) Neutrophils (%) (Auto) 75 % (31-73) Lymphocytes (%) (Auto) 14 % (24-48) Monocytes (%) (Auto) 9 % (0-9) Eosinophils (%) (Auto) 1 % (0-3) Basophils (%) (Auto) 1 % (0-3) Neutrophils # (Auto) 6.4 x10^3uL (1.8-7.7) Lymphocytes # (Auto) 1.2 x10^3/uL (1.0-4.8) Monocytes # (Auto) 0.7 x10^3/uL (0.0-1.1) Eosinophils # (Auto) 0.1 x10^3/uL (0.0-0.7) Basophils # (Auto) 0.1 x10^3/uL (0.0-0.2) Sodium Level 130 mmol/L (136-145) Potassium Level 4.7 mmol/L (3.5-5.1) Chloride Level 96 mmol/L (98-107) Carbon Dioxide Level 22 mmol/L (21-32) Anion Gap 12 (6-14) Blood Urea Nitrogen 43 mg/dL (7-20) Creatinine 2.1 mg/dL (0.6-1.0) Estimated GFR (Cockcroft-Gault) 23.2 BUN/Creatinine Ratio 20 (6-20) Glucose Level 153 mg/dL (70-99) Calcium Level 8.1 mg/dL (8.5-10.1) Total Bilirubin 0.6 mg/dL (0.2-1.0) Aspartate Amino Transf (AST/SGOT) 32 U/L (15-37) Alanine Aminotransferase (ALT/SGPT) 21 U/L (14-59) Alkaline Phosphatase 212 U/L (46-116) Total Protein 7.5 g/dL (6.4-8.2) Albumin 2.2 g/dL (3.4-5.0) Albumin/Globulin Ratio 0.4 (1.0-1.7) Glucose (Fingerstick) 146 mg/dL (70-99) Laboratory Tests Test 02/11/19 14:35 02/11/19 16:24 02/11/19 20:30 02/12/19 06:00 Prothrombin Time 36.0 SEC (11.7-14.0) 35.0 SEC (11.7-14.0) Prothromb Time International Ratio 3.6 (0.8-1.1) 3.5 (0.8-1.1) Glucose (Fingerstick) 256 mg/dL (70-99) 242 mg/dL (70-99) Test 02/12/19 06:10 02/12/19 07:13 White Blood Count 8.4 x10^3/uL (4.0-11.0) Red Blood Count 4.10 x10^6/uL (3.50-5.40) Hemoglobin 10.6 g/dL (12.0-15.5) Hematocrit 33.6 % (36.0-47.0) Mean Corpuscular Volume 82 fL (79-100) Mean Corpuscular Hemoglobin 26 pg (25-35) Mean Corpuscular Hemoglobin Concent 32 g/dL (31-37) Red Cell Distribution Width 20.6 % (11.5-14.5) Platelet Count 212 x10^3/uL (140-400) Neutrophils (%) (Auto) 75 % (31-73) Lymphocytes (%) (Auto) 14 % (24-48) Monocytes (%) (Auto) 9 % (0-9) Eosinophils (%) (Auto) 1 % (0-3) Basophils (%) (Auto) 1 % (0-3) Neutrophils # (Auto) 6.4 x10^3uL (1.8-7.7) Lymphocytes # (Auto) 1.2 x10^3/uL (1.0-4.8) Monocytes # (Auto) 0.7 x10^3/uL (0.0-1.1) Eosinophils # (Auto) 0.1 x10^3/uL (0.0-0.7) Basophils # (Auto) 0.1 x10^3/uL (0.0-0.2) Sodium Level 130 mmol/L (136-145) Potassium Level 4.7 mmol/L (3.5-5.1) Chloride Level 96 mmol/L (98-107) Carbon Dioxide Level 22 mmol/L (21-32) Anion Gap 12 (6-14) Blood Urea Nitrogen 43 mg/dL (7-20) Creatinine 2.1 mg/dL (0.6-1.0) Estimated GFR (Cockcroft-Gault) 23.2 BUN/Creatinine Ratio 20 (6-20) Glucose Level 153 mg/dL (70-99) Calcium Level 8.1 mg/dL (8.5-10.1) Total Bilirubin 0.6 mg/dL (0.2-1.0) Aspartate Amino Transf (AST/SGOT) 32 U/L (15-37) Alanine Aminotransferase (ALT/SGPT) 21 U/L (14-59) Alkaline Phosphatase 212 U/L (46-116) Total Protein 7.5 g/dL (6.4-8.2) Albumin 2.2 g/dL (3.4-5.0) Albumin/Globulin Ratio 0.4 (1.0-1.7) Glucose (Fingerstick) 146 mg/dL (70-99) Medications Current Medications Ondansetron HCl (Zofran) 4 mg PRN Q6HRS PRN IV NAUSEA/VOMITING Last administered on 02/12/19at 06:11; Start 02/11/19 at 14:15 Acetaminophen/ Hydrocodone Bitart (Lortab 5/325) 1 tab PRN Q4HRS PRN PO MILD PAIN; Start 02/11/19 at 14:15 Acetaminophen (Tylenol) 650 mg PRN Q6HRS PRN PO Headaches, Temp > 101.5F; Start 02/11/19 at 14:15 Senna/Docusate Sodium (Senna Plus) 1 tab BID PO Last administered on 02/11/19at 20:47; Start 02/11/19 at 21:00 Lactulose (Lactulose) 20 gm PRN Q12HR PRN PO CONSTIPATION; Start 02/11/19 at 14 :15 Heparin Sodium (Porcine) (Heparin Sodium) 5,000 unit Q8HRS SQ ; Start 02/11/19 at 22:00 Piperacillin Sod/ Tazobactam Sod 3.375 gm/Sodium Chloride 50 ml @ 100 mls/hr Q6HRS IV Last administered on 02/12/19at 06:11; Start 02/11/19 at 18:00 Micafungin Sodium 100 mg/Dextrose 100 ml @ 100 mls/hr Q24H IV Last administered on 02/11/19at 16:30; Start 02/11/19 at 16:00 Linezolid (Zyvox) 600 mg BID PO Last administered on 02/12/19at 09:07; Start at 21:00 Insulin Glargine (Lantus) 10 units QHS SQ Last administered on 02/11/19at 21:01 ; Start 02/11/19 at 21:00 Insulin Human Lispro (HumaLOG) 0-7 UNITS TIDWMEALS SQ ; Start 02/12/19 at 08:00 Dextrose (Dextrose 50%-Water Syringe) 12.5 gm PRN Q15MIN PRN IV SEE COMMENTS; Start 02/11/19 at 19:45 Zolpidem Tartrate (Ambien) 5 mg PRN QHS PRN PO INSOMNIA Last administered on at 22:19; Start 02/11/19 at 21:15 Lidocaine HCl 48 ml/Sodium Bicarbonate 12 meq/Miscellaneous 60 ml @ 60 mls/hr 1X ONCE ID ; Start 02/13/19 at 06:00; Stop 02/13/19 at 06:59 Ondansetron HCl (Zofran) 4 mg PRN Q6HRS PRN IV NAUSEA/VOMITING; Start 02/13/19 at 07:00; Stop 02/14/19 at 06:59 Fentanyl Citrate (Fentanyl 2ml Vial) 25 mcg PRN Q5MIN PRN IV MILD PAIN; Start 02/13/19 at 07:00; Stop 02/14/19 at 06:59 Fentanyl Citrate (Fentanyl 2ml Vial) 50 mcg PRN Q5MIN PRN IV MODERATE TO SEVERE PAIN; Start 02/13/19 at 07:00; Stop 02/14/19 at 06:59 Morphine Sulfate (Morphine Sulfate) 1 mg PRN Q10MIN PRN IV SEVERE PAIN; Start 02/13/19 at 07:00; Stop 02/14/19 at 06:59 Ringer's Solution 1,000 ml @ 30 mls/hr Q24H IV ; Start 02/13/19 at 07:00; Stop 02/13/19 at 18:59 Lidocaine HCl (Xylocaine-Mpf 1% 2ml Vial) 2 ml PRN 1X PRN ID PRIOR TO IV START ; Start 02/13/19 at 07:00; Stop 02/14/19 at 06:59 Hydromorphone HCl (Dilaudid) 0.5 mg PRN Q10MIN PRN IV SEV PAIN, Second choice; Start 02/13/19 at 07:00; Stop 02/14/19 at 06:59 Prochlorperazine Edisylate (Compazine) 5 mg PACU PRN PRN IV NAUSEA, MRX1; Start 02/13/19 at 07:00; Stop 02/14/19 at 06:59 Vitals/I & O Vital Sign - Last 24 Hours 02/11/19 02/11/19 02/11/19 02/11/19 13:00 14:59 19:00 20:10 Temp 97.3 97.9 98.6 97.3 97.9 98.6 Pulse 81 84 65 Resp 20 18 18 B/P (MAP) 124/69 (87) 126/71 (89) 121/71 (88) Pulse Ox 96 95 96 O2 Delivery Room Air Room Air Room Air Room Air 02/11/19 02/12/19 02/12/19 23:00 03:00 07:00 Temp 98.6 97.5 97.7 98.6 97.5 97.7 Pulse 52 93 89 Resp 18 18 17 B/P (MAP) 147/111 (123) 95/53 (67) 116/50 (72) Pulse Ox 93 94 95 O2 Delivery Room Air Room Air Room Air Intake and Output 02/11/19 02/11/19 02/12/19 14:59 22:59 06:59 Intake Total 240 ml 390 ml 200 ml Balance 240 ml 390 ml 200 ml RONAK GALEAS MD Feb 12, 2019 10:23
[2019-02-12 11:00] VITALS: BP 102/55
--- NOTE | 2019-02-12 14:43 | PDOC ---
Provider Note Provider Note S: 73-year-old female with multiple foot wounds. Admitted for evaluation treatment of osteomyelitis of the second toe tip of the left foot. Pt seen today , general complaint of "not feeling great", but not specific complaints. Foot pain is minimal when asked. INR 3.5, pt reports she has a "cows valve". Pt up in chair. Ambulating. O: VSS, afebrile Respirations non labored Abdomen soft, nondistended Her pulse examination shows palpable femoral pulses and pedal pulses on the left and this diminished femoral pulse and absent pedal pulses on the right. Multiple foot wounds bilaterally. Left 2nd toe goes down to bone. A/P: Pt with osteomyelitis involving left 2nd toe and multiple foot ulcers bilatearlly. The patient also has syndactyly of the second and third toe bilaterally. We have recommended left 2/3rd toe amputations with primary closure with bilateral foot wound debridement. Patient has heart valve replacement, bovine?, her INR today is 3.5. Dr. Luke will need INR 1.8 or less for procedure. Will give Vit K today and recheck in the am, if within target will proceed with procedure tomorrow. Will defer to primary or cardiology if/when to initiate heparin for anticoagulation. Continue abx. Will order arterial duplex EMI WILSON Feb 12, 2019 14:43
[2019-02-12 15:00] VITALS: BP 100/55
[2019-02-12] MEDS ORDERED: PHYTONADIONE (VIT K1) IV 5 MG in IV DEXTROSE 5% 50 ML IV ONE (15:00)
--- NOTE | 2019-02-12 15:33 | NUR ---
ONEL following pt for anticipated dc needs. Chart reviewed and CAROLINE RN. Pt lives at home with family. PT/OT recommends SNU. Spoke with pt, pt's son and daughter in law in room regarding SNU, SNU options and insurance coverage. Pt's son, Bolivar Carbajal, phone: [phone] reported they would like pt to go to [facility] upon dc. ONEL phoned and faxed referral to [facility]. Pt acceptance and admission pending. Will continue to follow. CAROLINE BLAKELY.
[2019-02-12] MEDS: MICAFUNGIN 100 MG in IV DEXTROSE 5% 100ML 100 ML IV SCH (17:01)
--- NOTE | 2019-02-12 17:01 | RAD ---
Bilateral lower extremity arterial ultrasound History: Foot wounds Findings: Multiple grayscale, color, and duplex spectral analysis sonographic images were acquired of the lower extremity arteries bilaterally. There are abnormal monophasic waveforms throughout the right lower extremity arteries and biphasic waveforms on the left. Peroneal arteries are not seen on either side. There is increased velocity between the common femoral artery proximal left superficial femoral artery and also between the proximal and mid left superficial femoral artery. There is diffuse plaque bilaterally greater on the right. Velocities in cm/sec: RIGHT Common femoral artery 66 Profunda femoris artery 60 Proximal SFA 60 Mid SFA 47 Distal SFA 69 Popliteal artery 49 Anterior tibial artery 31 Dorsalis pedis artery 26 Posterior tibial artery 25 proximally and 35 distally Peroneal artery not seen LEFT: Common femoral artery 69 Profunda femoris artery 60 Proximal SFA 107 Mid SFA 152 Distal SFA 125 Popliteal artery 78 Anterior tibial artery 80 Dorsalis pedis artery 65 Posterior tibial artery 74 proximally and 71 distally Peroneal artery not seen Impression: 1. There are diffuse abnormal monophasic waveforms on the right, biphasic waveforms on the left. Findings may be due to component of inflow disease. Peroneal arteries are not seen on either side and presumably occluded. On the left, there are relative increased velocities between the left common femoral artery and proximal superficial femoral artery and also between the proximal and mid superficial femoral artery which may be due to underlying stenoses. There is diffuse plaque bilaterally greater on the right. Electronically signed by: Jamison Villagran MD (02/12/2019 4:58 PM) [id number]
[2019-02-12 19:00] VITALS: BP 98/66
[2019-02-12] MEDS: INSULIN GLARGINE 300 UNITS/3 ML INSULN.PEN. SQ SCH (21:04)
[2019-02-12] MEDS: ZOLPIDEM 5 MG TABLET. PO PRN (22:20)
[2019-02-12 22:45] VITALS: BP 102/66
[2019-02-13] VITALS (25 sets, daily range): BP systolic 81–140; BP diastolic 45–85
[2019-02-13 03:52] LABS: BASO # 0.1 x10^3/uL (0.0-0.2); BASO % 2 % (0-3); EOS # 0.3 x10^3/uL (0.0-0.7); EOS % 5 % (0-3); HEMATOCRIT 35.9 % (36.0-47.0); HEMOGLOBIN 11.2 g/dL (12.0-15.5); LYMPH # 1.1 x10^3/uL (1.0-4.8); LYMPH % 19 % (24-48); MEAN CORPUSCULAR HEMOGLOBIN 26 pg (25-35); MEAN CORPUSCULAR HGB CONC 31 g/dL (31-37); MEAN CORPUSCULAR VOLUME 82 fL (79-100); MONO # 0.6 x10^3/uL (0.0-1.1); MONO % 10 % (0-9); NEUT # 3.8 x10^3uL (1.8-7.7); NEUT % 64 % (31-73); PLATELET COUNT 220 x10^3/uL (140-400); RED BLOOD COUNT 4.38 x10^6/uL (3.50-5.40); RED CELL DISTRIBUTION WIDTH 20.6 % (11.5-14.5); WHITE BLOOD COUNT 5.9 x10^3/uL (4.0-11.0)
[2019-02-13 04:01] LABS: CALCIUM 8.3 mg/dL (8.5-10.1); CREATININE 2.5 mg/dL (0.6-1.0); GFR 18.9; POTASSIUM 4.9 mmol/L (3.5-5.1)
[2019-02-13 04:15] LABS: PROTHROMBIN TIME PATIENT 20.5 SEC (11.7-14.0)
[2019-02-13] MEDS: PIPERACILLIN/TAZOBACTAM 3.375 GM in IV NORMAL SALINE 50ML 50 ML IV SCH (05:50)
[2019-02-13] MEDS ORDERED: LIDOCAINE 1% PF 30ML 48 ML, SODIUM BICARBONATE VIAL 12 MEQ in TOTAL VOLUME SYRINGE 60 ML ID ONE (06:00)
[2019-02-13] MEDS ORDERED: HYDROmorphone 2 MG/ML VIAL IV PRN (07:00)
[2019-02-13] MEDS ORDERED: PROCHLORPERAZINE 10 MG/2 ML VIAL. IV PRN (07:00)
[2019-02-13] MEDS ORDERED: LIDOCAINE 1% PF 2 ML VIAL. ID PRN (07:00)
[2019-02-13] MEDS ORDERED: ONDANSETRON PF 4 MG/2 ML VIAL. IV PRN (07:00)
[2019-02-13] MEDS ORDERED: IV RINGERS,LACTATED 1000ML 1,000 ML IV SCH (07:00)
[2019-02-13] MEDS ORDERED: fentaNYL PF VIAL 100 MCG/2 ML VIAL IV PRN ×2 (07:00)
[2019-02-13] MEDS ORDERED: MORPHINE SULFATE 2 MG/ML VIAL. IV PRN ×2 (07:00→11:30)
[2019-02-13] MEDS: INSULIN LISPRO 300 UNITS/3 ML INSULN.PEN. SQ SCH ×3 (08:00→16:54)
[2019-02-13] MEDS: SENNOSIDES/DOCUSATE 8.6/50MG TABLET. PO SCH ×2 (09:00→20:45)
[2019-02-13] MEDS: LINEZOLID 600 MG TABLET PO SCH ×2 (09:00→20:44)
[2019-02-13] MEDS ORDERED: PROPOFOL 20 ML IV ONE (09:42)
[2019-02-13] MEDS ORDERED: DEXAMETHASONE SOD PHOS 20 MG/5 ML VIAL. ONE (09:42)
[2019-02-13] MEDS ORDERED: LIDOCAINE 2% PF 5 ML VIAL. ONE (09:42)
[2019-02-13] MEDS ORDERED: ONDANSETRON PF 4 MG/2 ML VIAL. ONE (09:42)
--- NOTE | 2019-02-13 10:03 | PDOC ---
Infectious Disease Note Subjective: Subjective pt scheduled for surgery today no f/c/v/d/abdo pain/sob Vital Signs: Vital Signs Vital Signs Date Time Temp Pulse Resp B/P (MAP) Pulse Ox O2 Delivery O2 Flow Rate FiO2 02/13/19 09:37 97.7 101 23 113/57 96 Room Air 97.7 Physical Exam: PHYSICAL EXAM GENERAL: Alert, oriented female in nad HEENT: Normocephalic, atraumatic. Anicteric. Poor dentition. No thrush. NECK: Supple. LUNGS: Clear. HEART: S1, S2. ABDOMEN: Soft. Bowel sounds present, nondistended. EXTREMITIES: No edema, no clubbing, no cyanosis.Bilateral foot ulcerations, Ulceration on the plantar aspect of the right foot, ulceration at the tip of the second toe of the left foot, multiple foot ulcers, syndactyly of the second and the third toe bilaterally, onychomycosis. CENTRAL NERVOUS SYSTEM: Moves all 4 extremities. Alert, oriented x 3, grossly nonfocal. PSYCHIATRIC: Cooperative, appropriate mood and affect. Medications: Inpatient Meds: Current Medications Medications (Trade) Dose Ordered Sig/Lili Start Time Stop Time Status Last Admin Dose Admin Acetaminophen (Tylenol) 650 mg PRN Q6HRS PRN 02/11/19 14:15 Acetaminophen/ Hydrocodone Bitart (Lortab 5/325) 1 tab PRN Q4HRS PRN 02/11/19 14:15 Dexamethasone Sodium Phosphate (Decadron) 20 mg STK-MED ONCE 02/13/19 09:42 02/13/19 09:43 DC Dextrose (Dextrose 50%-Water Syringe) 12.5 gm PRN Q15MIN PRN 02/11/19 19:45 Fentanyl Citrate (Fentanyl 2ml Vial) 50 mcg PRN Q5MIN PRN 02/13/19 07:00 02/14/19 06:59 Heparin Sodium (Porcine) (Heparin Sodium) 5,000 unit Q8HRS 02/11/19 22:00 02/12/19 13:53 DC Hydromorphone HCl (Dilaudid) 0.5 mg PRN Q10MIN PRN 02/13/19 07:00 02/14/19 06:59 Insulin Glargine (Lantus) 10 units QHS 02/11/19 21:00 4/17/19 21:04 10 UNITS Insulin Human Lispro (HumaLOG) 0-7 UNITS TIDWMEALS 02/12/19 08:00 Lactulose (Lactulose) 20 gm PRN Q12HR PRN 02/11/19 14:15 Lidocaine HCl (Lidocaine Pf 2% Vial) 5 ml STK-MED ONCE 02/13/19 09:42 02/13/19 09:43 DC Lidocaine HCl (Xylocaine-Mpf 1% 2ml Vial) 2 ml PRN 1X PRN 02/13/19 07:00 02/14/19 06:59 Lidocaine HCl 48 ml/Sodium Bicarbonate 12 meq/Miscellaneous 60 ml @ 60 mls/hr 1X ONCE 02/13/19 06:00 02/13/19 06:59 DC Linezolid (Zyvox) 600 mg BID 02/11/19 21:00 02/12/19 20:57 600 MG Micafungin Sodium 100 mg/Dextrose 100 ml @ 100 mls/hr Q24H 02/11/19 16:00 02/12/19 17:01 100 MLS/HR Morphine Sulfate (Morphine Sulfate) 1 mg PRN Q10MIN PRN 02/13/19 07:00 02/14/19 06:59 Ondansetron HCl (Zofran) 4 mg STK-MED ONCE 02/13/19 09:42 02/13/19 09:43 DC Phytonadione 5 mg/ Dextrose 50.5 ml @ 102 mls/hr 1X ONCE 02/12/19 15:00 02/12/19 15:29 DC 02/12/19 15:30 102 MLS/HR Piperacillin Sod/ Tazobactam Sod 3.375 gm/Sodium Chloride 50 ml @ 100 mls/hr Q6HRS 02/11/19 18:00 02/13/19 05:50 100 MLS/HR Prochlorperazine Edisylate (Compazine) 5 mg PACU PRN PRN 02/13/19 07:00 02/14/19 06:59 Propofol 20 ml @ As Directed STK-MED ONCE 02/13/19 09:42 02/13/19 09:43 DC Ringer's Solution 1,000 ml @ 30 mls/hr Q24H 02/13/19 07:00 02/13/19 18:59 02/13/19 09:46 30 MLS/HR Senna/Docusate Sodium (Senna Plus) 1 tab BID 02/11/19 21:00 02/12/19 21:00 1 TAB Zolpidem Tartrate (Ambien) 5 mg PRN QHS PRN 02/11/19 21:15 02/12/19 22:20 5 MG Labs: Lab Laboratory Tests Test 02/12/19 11:25 02/12/19 16:18 02/12/19 20:49 02/13/19 03:30 Glucose (Fingerstick) 120 mg/dL (70-99) 141 mg/dL (70-99) 199 mg/dL (70-99) White Blood Count 5.9 x10^3/uL (4.0-11.0) Red Blood Count 4.38 x10^6/uL (3.50-5.40) Hemoglobin 11.2 g/dL (12.0-15.5) Hematocrit 35.9 % (36.0-47.0) Mean Corpuscular Volume 82 fL (79-100) Mean Corpuscular Hemoglobin 26 pg (25-35) Mean Corpuscular Hemoglobin Concent 31 g/dL (31-37) Red Cell Distribution Width 20.6 % (11.5-14.5) Platelet Count 220 x10^3/uL (140-400) Neutrophils (%) (Auto) 64 % (31-73) Lymphocytes (%) (Auto) 19 % (24-48) Monocytes (%) (Auto) 10 % (0-9) Eosinophils (%) (Auto) 5 % (0-3) Basophils (%) (Auto) 2 % (0-3) Neutrophils # (Auto) 3.8 x10^3uL (1.8-7.7) Lymphocytes # (Auto) 1.1 x10^3/uL (1.0-4.8) Monocytes # (Auto) 0.6 x10^3/uL (0.0-1.1) Eosinophils # (Auto) 0.3 x10^3/uL (0.0-0.7) Basophils # (Auto) 0.1 x10^3/uL (0.0-0.2) Prothrombin Time 20.5 SEC (11.7-14.0) Prothromb Time International Ratio 1.8 (0.8-1.1) Sodium Level 134 mmol/L (136-145) Potassium Level 4.9 mmol/L (3.5-5.1) Chloride Level 99 mmol/L (98-107) Carbon Dioxide Level 22 mmol/L (21-32) Anion Gap 13 (6-14) Blood Urea Nitrogen 47 mg/dL (7-20) Creatinine 2.5 mg/dL (0.6-1.0) Estimated GFR (Cockcroft-Gault) 18.9 Glucose Level 133 mg/dL (70-99) Calcium Level 8.3 mg/dL (8.5-10.1) Test 02/13/19 07:26 Glucose (Fingerstick) 110 mg/dL (70-99) Objective: Assessment: 1. Left second toe osteomyelitis. 2. Multiple bilateral foot ulcers. 3. Onychomycosis. 4. Diabetes with peripheral neuropathy. 5. Tobacco user. 6. Coronary artery disease, status post valve replacement. 7. Peripheral vascular disease. 8. Renal insufficiency Plan: Plan of Care Zosyn, Zyvox, micafungin. Vascular Surgery planning for second and third toe amputation of the left foot with primary closure and wound debridement. Monitor labs in a.m. and cultures. Continue wound care per Vascular. Continue supportive care. FLAVIA LAO MD Feb 13, 2019 10:03
[2019-02-13] MEDS ORDERED: ePHEDrine PF IN SALINE 50 MG/10 ML SYRINGE. IV ONE ×2 (10:28→10:44)
[2019-02-13] MEDS ORDERED: VASOPRESSIN 20 UNIT/ML VIAL. ONE (10:31)
[2019-02-13] MEDS ORDERED: PHENYLEPHRINE in 0.9% NACL PF 1 MG/10 ML SYRINGE. IV ONE (10:44)
[2019-02-13] MEDS ORDERED: ESMOLOL 100 MG/10 ML VIAL. IVP ONE (10:44)
[2019-02-13] MEDS ORDERED: SEVOFLURANE 31 TO 60 MINUTES. IH ONE (11:00)
--- NOTE | 2019-02-13 11:23 | PDOC ---
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 Left 2nd and 3rd toe amputation, closed 2. Debridement of bilateral foot ulcers to subcutaneous tissue Surgeon Dale Luke MD Donor Processor None Anesthesia Type: General Blood Loss 15mL Specimens Obtained Left 2nd and 3rd toes Findings Good bleeding Complications None Operative Note See detailed op note EMI WILSON Feb 13, 2019 11:23
--- NOTE | 2019-02-13 11:23 | PDOC ---
PROGRESS NOTES History of Present Illness History of Present Illness VTE Prophylaxis Ordered VTE Prophylaxis Devices: Contraindicated VTE Pharmacological Prophylaxi: Yes Assessment/Plan Assessment/Plan A/P: LE cellulitis - RLE worse than left, empiric coverage for strep and staph, consult ID, will obtain cultures first. Follow cultures and CBC Left 2nd toe OM - will consult vascular surgery, // amputation DM - she does not know her meds, will place on basal bolus plus regimen dCHF - she feels in mild exacerbation, prn IV lasix PAD - confirmed at [facility] on 12/07/18, obtain records s/p AVR - looks aortic on recent CXR and sounds mechanical, INR daily, hold coumadin, will bridge on heparin when she is subtherapeutic in prep for surgery. Confirm valve with echo Recent pacemaker removal - will obtain blood cultures Multiple foot ulcers - wound care following Left second toe osteomyelitis. mri Findings consistent with osteomyelitis of the distal phalanx of the second toe. She has underlying exposed bone Multiple bilateral foot ulcers. Onychomycosis. Diabetes with peripheral neuropathy. Tobacco user. Coronary artery disease, status post valve replacement. Peripheral vascular disease. severe FEN - ADA diet PPX - therapeutic INR, will start heparin GTT once subtherapeutic FULL CODE Inpatient for bilateral cellulitis and diabetic foot ulcers at least 2 midnights 02/13 significant post-op complication of a-fib rvr transferred to [facility]vc icu bed plan iv Zosyn, Zyvox, micafungin. Vascular Surgery planning for second and third toe amputation of the left foot with primary closure and wound debridement. 47 min pt exam, chart review, > 50% of time with pt exam, chart review, pt care coordination Vitals Vitals Vital Signs Date Time Temp Pulse Resp B/P (MAP) Pulse Ox O2 Delivery O2 Flow Rate FiO2 02/13/19 09:37 97.7 101 23 113/57 96 Room Air 97.7 Physical Exam Physical Exam GENERAL: Alert, oriented female in nad HEENT: Normocephalic, atraumatic. Anicteric. Poor dentition. No thrush. NECK: Supple. LUNGS: Clear. HEART: S1, S2. ABDOMEN: Soft. Bowel sounds present, nondistended. EXTREMITIES: No edema, no clubbing, no cyanosis.Bilateral foot ulcerations, Ulceration on the plantar aspect of the right foot, ulceration at the tip of the second toe of the left foot, multiple foot ulcers, syndactyly of the second and the third toe bilaterally, onychomycosis. CENTRAL NERVOUS SYSTEM: Moves all 4 extremities. Alert, oriented x 3, grossly nonfocal. PSYCHIATRIC: Cooperative, appropriate mood and affect. General: Alert, Oriented X3, Cooperative, No acute distress, moderate distress Heart: Normal S1, Normal S2, Other (irrr rate 136) Lungs: Clear Abdomen: Normal bowel sounds, Soft, No tenderness, No hepatosplenomegaly, No masses Extremities: Other (2 ulcers right foot, decreased pulses. Callous on 2nd left toe and 5th MTP post op dressing dry) Labs LABS Laboratory Tests Test 02/12/19 11:25 02/12/19 16:18 02/12/19 20:49 02/13/19 03:30 Glucose (Fingerstick) 120 mg/dL (70-99) 141 mg/dL (70-99) 199 mg/dL (70-99) White Blood Count 5.9 x10^3/uL (4.0-11.0) Red Blood Count 4.38 x10^6/uL (3.50-5.40) Hemoglobin 11.2 g/dL (12.0-15.5) Hematocrit 35.9 % (36.0-47.0) Mean Corpuscular Volume 82 fL (79-100) Mean Corpuscular Hemoglobin 26 pg (25-35) Mean Corpuscular Hemoglobin Concent 31 g/dL (31-37) Red Cell Distribution Width 20.6 % (11.5-14.5) Platelet Count 220 x10^3/uL (140-400) Neutrophils (%) (Auto) 64 % (31-73) Lymphocytes (%) (Auto) 19 % (24-48) Monocytes (%) (Auto) 10 % (0-9) Eosinophils (%) (Auto) 5 % (0-3) Basophils (%) (Auto) 2 % (0-3) Neutrophils # (Auto) 3.8 x10^3uL (1.8-7.7) Lymphocytes # (Auto) 1.1 x10^3/uL (1.0-4.8) Monocytes # (Auto) 0.6 x10^3/uL (0.0-1.1) Eosinophils # (Auto) 0.3 x10^3/uL (0.0-0.7) Basophils # (Auto) 0.1 x10^3/uL (0.0-0.2) Prothrombin Time 20.5 SEC (11.7-14.0) Prothromb Time International Ratio 1.8 (0.8-1.1) Sodium Level 134 mmol/L (136-145) Potassium Level 4.9 mmol/L (3.5-5.1) Chloride Level 99 mmol/L (98-107) Carbon Dioxide Level 22 mmol/L (21-32) Anion Gap 13 (6-14) Blood Urea Nitrogen 47 mg/dL (7-20) Creatinine 2.5 mg/dL (0.6-1.0) Estimated GFR (Cockcroft-Gault) 18.9 Glucose Level 133 mg/dL (70-99) Calcium Level 8.3 mg/dL (8.5-10.1) Test 02/13/19 07:26 Glucose (Fingerstick) 110 mg/dL (70-99) Assessment and Plan Assessmemt and Plan Date: Feb 13, 2019 Pre-Op Diagnosis Osteomyelitis of left second toe Bilateral foot ulcers Syndactyly of 2nd and 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 Left 2nd and 3rd toe amputation, closed 2. Debridement of bilateral foot ulcers to subcutaneous tissue Surgeon Dale Luke MD Drawer Upfitter None Anesthesia Type: General Blood Loss 15mL Comment Review of Relevant I have reviewed the following items hernandez (where applicable) has been applied. Labs Laboratory Tests Test 02/11/19 14:35 02/11/19 15:16 02/11/19 16:24 02/11/19 20:30 Prothrombin Time 36.0 SEC (11.7-14.0) Prothromb Time International Ratio 3.6 (0.8-1.1) Nasal Screen MRSA (PCR) Negative (Negative) Glucose (Fingerstick) 256 mg/dL (70-99) 242 mg/dL (70-99) Test 02/12/19 06:00 02/12/19 06:10 02/12/19 07:13 02/12/19 11:25 Prothrombin Time 35.0 SEC (11.7-14.0) Prothromb Time International Ratio 3.5 (0.8-1.1) White Blood Count 8.4 x10^3/uL (4.0-11.0) Red Blood Count 4.10 x10^6/uL (3.50-5.40) Hemoglobin 10.6 g/dL (12.0-15.5) Hematocrit 33.6 % (36.0-47.0) Mean Corpuscular Volume 82 fL (79-100) Mean Corpuscular Hemoglobin 26 pg (25-35) Mean Corpuscular Hemoglobin Concent 32 g/dL (31-37) Red Cell Distribution Width 20.6 % (11.5-14.5) Platelet Count 212 x10^3/uL (140-400) Neutrophils (%) (Auto) 75 % (31-73) Lymphocytes (%) (Auto) 14 % (24-48) Monocytes (%) (Auto) 9 % (0-9) Eosinophils (%) (Auto) 1 % (0-3) Basophils (%) (Auto) 1 % (0-3) Neutrophils # (Auto) 6.4 x10^3uL (1.8-7.7) Lymphocytes # (Auto) 1.2 x10^3/uL (1.0-4.8) Monocytes # (Auto) 0.7 x10^3/uL (0.0-1.1) Eosinophils # (Auto) 0.1 x10^3/uL (0.0-0.7) Basophils # (Auto) 0.1 x10^3/uL (0.0-0.2) Sodium Level 130 mmol/L (136-145) Potassium Level 4.7 mmol/L (3.5-5.1) Chloride Level 96 mmol/L (98-107) Carbon Dioxide Level 22 mmol/L (21-32) Anion Gap 12 (6-14) Blood Urea Nitrogen 43 mg/dL (7-20) Creatinine 2.1 mg/dL (0.6-1.0) Estimated GFR (Cockcroft-Gault) 23.2 BUN/Creatinine Ratio 20 (6-20) Glucose Level 153 mg/dL (70-99) Calcium Level 8.1 mg/dL (8.5-10.1) Total Bilirubin 0.6 mg/dL (0.2-1.0) Aspartate Amino Transf (AST/SGOT) 32 U/L (15-37) Alanine Aminotransferase (ALT/SGPT) 21 U/L (14-59) Alkaline Phosphatase 212 U/L (46-116) Total Protein 7.5 g/dL (6.4-8.2) Albumin 2.2 g/dL (3.4-5.0) Albumin/Globulin Ratio 0.4 (1.0-1.7) Glucose (Fingerstick) 146 mg/dL (70-99) 120 mg/dL (70-99) Test 02/12/19 16:18 02/12/19 20:49 02/13/19 03:30 02/13/19 07:26 Glucose (Fingerstick) 141 mg/dL (70-99) 199 mg/dL (70-99) 110 mg/dL (70-99) White Blood Count 5.9 x10^3/uL (4.0-11.0) Red Blood Count 4.38 x10^6/uL (3.50-5.40) Hemoglobin 11.2 g/dL (12.0-15.5) Hematocrit 35.9 % (36.0-47.0) Mean Corpuscular Volume 82 fL (79-100) Mean Corpuscular Hemoglobin 26 pg (25-35) Mean Corpuscular Hemoglobin Concent 31 g/dL (31-37) Red Cell Distribution Width 20.6 % (11.5-14.5) Platelet Count 220 x10^3/uL (140-400) Neutrophils (%) (Auto) 64 % (31-73) Lymphocytes (%) (Auto) 19 % (24-48) Monocytes (%) (Auto) 10 % (0-9) Eosinophils (%) (Auto) 5 % (0-3) Basophils (%) (Auto) 2 % (0-3) Neutrophils # (Auto) 3.8 x10^3uL (1.8-7.7) Lymphocytes # (Auto) 1.1 x10^3/uL (1.0-4.8) Monocytes # (Auto) 0.6 x10^3/uL (0.0-1.1) Eosinophils # (Auto) 0.3 x10^3/uL (0.0-0.7) Basophils # (Auto) 0.1 x10^3/uL (0.0-0.2) Prothrombin Time 20.5 SEC (11.7-14.0) Prothromb Time International Ratio 1.8 (0.8-1.1) Sodium Level 134 mmol/L (136-145) Potassium Level 4.9 mmol/L (3.5-5.1) Chloride Level 99 mmol/L (98-107) Carbon Dioxide Level 22 mmol/L (21-32) Anion Gap 13 (6-14) Blood Urea Nitrogen 47 mg/dL (7-20) Creatinine 2.5 mg/dL (0.6-1.0) Estimated GFR (Cockcroft-Gault) 18.9 Glucose Level 133 mg/dL (70-99) Calcium Level 8.3 mg/dL (8.5-10.1) Laboratory Tests Test 02/12/19 11:25 02/12/19 16:18 02/12/19 20:49 02/13/19 03:30 Glucose (Fingerstick) 120 mg/dL (70-99) 141 mg/dL (70-99) 199 mg/dL (70-99) White Blood Count 5.9 x10^3/uL (4.0-11.0) Red Blood Count 4.38 x10^6/uL (3.50-5.40) Hemoglobin 11.2 g/dL (12.0-15.5) Hematocrit 35.9 % (36.0-47.0) Mean Corpuscular Volume 82 fL (79-100) Mean Corpuscular Hemoglobin 26 pg (25-35) Mean Corpuscular Hemoglobin Concent 31 g/dL (31-37) Red Cell Distribution Width 20.6 % (11.5-14.5) Platelet Count 220 x10^3/uL (140-400) Neutrophils (%) (Auto) 64 % (31-73) Lymphocytes (%) (Auto) 19 % (24-48) Monocytes (%) (Auto) 10 % (0-9) Eosinophils (%) (Auto) 5 % (0-3) Basophils (%) (Auto) 2 % (0-3) Neutrophils # (Auto) 3.8 x10^3uL (1.8-7.7) Lymphocytes # (Auto) 1.1 x10^3/uL (1.0-4.8) Monocytes # (Auto) 0.6 x10^3/uL (0.0-1.1) Eosinophils # (Auto) 0.3 x10^3/uL (0.0-0.7) Basophils # (Auto) 0.1 x10^3/uL (0.0-0.2) Prothrombin Time 20.5 SEC (11.7-14.0) Prothromb Time International Ratio 1.8 (0.8-1.1) Sodium Level 134 mmol/L (136-145) Potassium Level 4.9 mmol/L (3.5-5.1) Chloride Level 99 mmol/L (98-107) Carbon Dioxide Level 22 mmol/L (21-32) Anion Gap 13 (6-14) Blood Urea Nitrogen 47 mg/dL (7-20) Creatinine 2.5 mg/dL (0.6-1.0) Estimated GFR (Cockcroft-Gault) 18.9 Glucose Level 133 mg/dL (70-99) Calcium Level 8.3 mg/dL (8.5-10.1) Test 02/13/19 07:26 Glucose (Fingerstick) 110 mg/dL (70-99) Microbiology 02/11/19 Blood Culture - Preliminary, Resulted NO GROWTH AFTER 1 DAY Medications Current Medications Ondansetron HCl (Zofran) 4 mg PRN Q6HRS PRN IV NAUSEA/VOMITING Last administered on 02/12/19at 06:11; Start 02/11/19 at 14:15 Acetaminophen/ Hydrocodone Bitart (Lortab 5/325) 1 tab PRN Q4HRS PRN PO MILD PAIN; Start 02/11/19 at 14:15 Acetaminophen (Tylenol) 650 mg PRN Q6HRS PRN PO Headaches, Temp > 101.5F; Start 02/11/19 at 14:15 Senna/Docusate Sodium (Senna Plus) 1 tab BID PO Last administered on 02/12/19at 21:00; Start 02/11/19 at 21:00 Lactulose (Lactulose) 20 gm PRN Q12HR PRN PO CONSTIPATION; Start 02/11/19 at 14 :15 Heparin Sodium (Porcine) (Heparin Sodium) 5,000 unit Q8HRS SQ ; Start 02/11/19 at 22:00; Stop 02/12/19 at 13:53; Status DC Piperacillin Sod/ Tazobactam Sod 3.375 gm/Sodium Chloride 50 ml @ 100 mls/hr Q6HRS IV Last administered on 02/13/19at 05:50; Start 02/11/19 at 18:00; Stop at 10:05; Status DC Micafungin Sodium 100 mg/Dextrose 100 ml @ 100 mls/hr Q24H IV Last administered on 02/12/19at 17:01; Start 02/11/19 at 16:00 Linezolid (Zyvox) 600 mg BID PO Last administered on 02/12/19at 20:57; Start at 21:00 Insulin Glargine (Lantus) 10 units QHS SQ Last administered on 02/12/19at 21:04 ; Start 02/11/19 at 21:00 Insulin Human Lispro (HumaLOG) 0-7 UNITS TIDWMEALS SQ ; Start 02/12/19 at 08:00 Dextrose (Dextrose 50%-Water Syringe) 12.5 gm PRN Q15MIN PRN IV SEE COMMENTS; Start 02/11/19 at 19:45 Zolpidem Tartrate (Ambien) 5 mg PRN QHS PRN PO INSOMNIA Last administered on at 22:20; Start 02/11/19 at 21:15 Lidocaine HCl 48 ml/Sodium Bicarbonate 12 meq/Miscellaneous 60 ml @ 60 mls/hr 1X ONCE ID ; Start 02/13/19 at 06:00; Stop 02/13/19 at 06:59; Status DC Ondansetron HCl (Zofran) 4 mg PRN Q6HRS PRN IV NAUSEA/VOMITING; Start 02/13/19 at 07:00; Stop 02/14/19 at 06:59 Fentanyl Citrate (Fentanyl 2ml Vial) 25 mcg PRN Q5MIN PRN IV MILD PAIN; Start 02/13/19 at 07:00; Stop 02/14/19 at 06:59 Fentanyl Citrate (Fentanyl 2ml Vial) 50 mcg PRN Q5MIN PRN IV MODERATE TO SEVERE PAIN; Start 02/13/19 at 07:00; Stop 02/14/19 at 06:59 Morphine Sulfate (Morphine Sulfate) 1 mg PRN Q10MIN PRN IV SEVERE PAIN; Start 02/13/19 at 07:00; Stop 02/14/19 at 06:59 Ringer's Solution 1,000 ml @ 30 mls/hr Q24H IV Last administered on 02/13/19at 09:46; Start 02/13/19 at 07:00; Stop 02/13/19 at 18:59 Lidocaine HCl (Xylocaine-Mpf 1% 2ml Vial) 2 ml PRN 1X PRN ID PRIOR TO IV START ; Start 02/13/19 at 07:00; Stop 02/14/19 at 06:59 Hydromorphone HCl (Dilaudid) 0.5 mg PRN Q10MIN PRN IV SEV PAIN, Second choice; Start 02/13/19 at 07:00; Stop 02/14/19 at 06:59 Prochlorperazine Edisylate (Compazine) 5 mg PACU PRN PRN IV NAUSEA, MRX1; Start 02/13/19 at 07:00; Stop 02/14/19 at 06:59 Phytonadione 5 mg/ Dextrose 50.5 ml @ 102 mls/hr 1X ONCE IV Last administered on 02/12/19at 15:30; Start 02/12/19 at 15:00; Stop 02/12/19 at 15:29 ; Status DC Propofol 20 ml @ As Directed STK-MED ONCE IV ; Start 02/13/19 at 09:42; Stop at 09:43; Status DC Dexamethasone Sodium Phosphate (Decadron) 20 mg STK-MED ONCE .ROUTE ; Start at 09:42; Stop 02/13/19 at 09:43; Status DC Lidocaine HCl (Lidocaine Pf 2% Vial) 5 ml STK-MED ONCE .ROUTE ; Start 02/13/19 at 09:42; Stop 02/13/19 at 09:43; Status DC Ondansetron HCl (Zofran) 4 mg STK-MED ONCE .ROUTE ; Start 02/13/19 at 09:42; Stop 02/13/19 at 09:43; Status DC Piperacillin Sod/ Tazobactam Sod 2.25 gm/Sodium Chloride 50 ml @ 100 mls/hr Q8HRS IV ; Start 02/13/19 at 14:00 Ephedrine Sulfate (ePHEDrine PF IN SALINE SYRINGE) 50 mg STK-MED ONCE IV ; Start 02/13/19 at 10:28; Stop 02/13/19 at 10:29; Status DC Vasopressin (Vasostrict) 20 unit STK-MED ONCE .ROUTE ; Start 02/13/19 at 10:31; Stop 02/13/19 at 10:32; Status DC Esmolol HCl (Brevibloc) 100 mg STK-MED ONCE IVP ; Start 02/13/19 at 10:44; Stop 02/13/19 at 10:45; Status DC Phenylephrine HCl (PHENYLEPHRINE in 0.9% NACL PF) 1 mg STK-MED ONCE IV ; Start 02/13/19 at 10:44; Stop 02/13/19 at 10:45; Status DC Ephedrine Sulfate (ePHEDrine PF IN SALINE SYRINGE) 50 mg STK-MED ONCE IV ; Start 02/13/19 at 10:44; Stop 02/13/19 at 10:45; Status DC Sevoflurane (Ultane) 30 ml STK-MED ONCE IH ; Start 02/13/19 at 11:00; Stop 02/13 at 11:01; Status DC Morphine Sulfate (Morphine Sulfate) 2 mg PRN Q2HR PRN IV PAIN; Start 02/13/19 at 11:30; Status UNV Acetaminophen/ Hydrocodone Bitart (Lortab 5/325) 2 tab PRN Q4HRS PRN PO PAIN; Start 02/13/19 at 11:30; Status UNV Vitals/I & O Vital Sign - Last 24 Hours 02/12/19 02/12/19 02/12/19 02/12/19 15:00 19:00 20:08 20:08 Temp 97.6 97.9 97.6 97.9 Pulse 90 86 Resp 16 B/P (MAP) 100/55 (70) 98/66 (77) Pulse Ox 99 98 O2 Delivery Room Air Room Air Room Air Room Air 02/12/19 02/13/19 02/13/19 02/13/19 22:45 03:00 07:00 09:37 Temp 97.1 97.4 98.4 97.7 97.1 97.4 98.4 97.7 Pulse 90 88 82 101 Resp 16 16 16 23 B/P (MAP) 102/66 (78) 93/51 (65) 119/68 (85) 113/57 Pulse Ox 96 97 97 96 O2 Delivery Room Air Room Air Room Air Room Air Intake and Output 02/12/19 02/12/19 02/13/19 14:59 22:59 06:59 Intake Total 220 ml 280 ml 380 ml Balance 220 ml 280 ml 380 ml RONAK GALEAS MD Feb 13, 2019 11:23
[2019-02-13] MEDS ORDERED: HYDROcodone/APAP 5/325MG 1 TAB TABLET PO PRN (11:30)
[2019-02-13] MEDS ORDERED: METOPROLOL TARTRATE 5 MG/5 ML VIAL. IVP ONE (12:15)
[2019-02-13] MEDS ORDERED: DIGOXIN IV 500 MCG/2 ML AMPUL. IV ONE (12:30)
--- NOTE | 2019-02-13 12:47 | NUR ---
Per ZORA Mcknight in recovery, this pt needs tele. Pt will be moved to room 201. Gave report to ZORA Youngblood in [facility] based on pt's status pre-op. Tubed down security receipt for pt's belongings that were locked up prior to surgery. TONYA Andino took pt's belongings to room 201.
--- NOTE | 2019-02-13 13:00 | OP ---
DATE OF SURGERY: 02/13/2019 PREOPERATIVE DIAGNOSES: 1. Osteomyelitis of the second toe, left foot with syndactyly of the second and third toe. 2. Lateral right fifth metatarsal ulcer. 3. Heel pressure sore. PROCEDURE PERFORMED: First and second toe amputation, left foot. Debridement of callus and soft tissues involving the right fifth metatarsophalangeal joint wound as well as the plantar sore at the base of the heel. DESCRIPTION OF PROCEDURE: The patient was brought to the operating room, general anesthetic was administered. She was prepped and draped in a sterile fashion. Elliptical incision was placed in the base of the second and third toe on the left foot. Soft tissues were divided sharply. The bone was transected with a bone cutter and rongeur was utilized to remove additional proximal aspect of the phalanx. The metatarsophalangeal joint space was entered. The metatarsal head was intact. There was no purulent material or evidence of infection at this location. No additional metatarsal head was removed. Hemostasis achieved with electrocautery and the wound was closed with interrupted sutures of 3-0 nylon. Sterile dressings were applied. Attention was directed at the heel ulcer. Callus was removed. The wound was debrided and sterile dressings applied. Attention was then directed to the right foot where lateral fifth metatarsal ulcer was inspected, hypertrophic callus was removed and the wound was debrided. Similarly, there was a hypertrophic callus of the heel. This was excised. There was no associated ulcer. Sterile dressings were placed on all wounds. The patient moved from the operating to recovery room in satisfactory and stable condition. PATTI BA MD DR: PINEDA/eddie JOB#: [id number] / [id number]
[2019-02-13] MEDS: HEPARIN 25,000UTS/500ML PREMIX 500 ML IV PRN (13:31)
[2019-02-13] MEDS ORDERED: METO-239 PO (14:41)
[2019-02-13] MEDS ORDERED: BUME2TAB3 PO (14:41)
[2019-02-13] MEDS ORDERED: CRESTOR40 MG PO (14:41)
[2019-02-13] MEDS ORDERED: ASPI-612 PO (14:41)
[2019-02-13] MEDS ORDERED: WARF4TAB64 PO (14:41)
[2019-02-13] MEDS: PIPERACILLIN/TAZOBACTAM 2.25 GM in IV NORMAL SALINE 50ML 50 ML IV SCH ×2 (15:41→20:45)
[2019-02-13] MEDS: ANTI-COAG MONITOR BY PHARMACY. MC PRN (15:45)
[2019-02-13] MEDS: METOPROLOL SUCC 24HR ER 25 MG TAB.ER.24H. PO SCH (16:00)
[2019-02-13] MEDS: ASPIRIN ENTERIC COATED 81 MG TABLET.DR. PO SCH (16:00)
[2019-02-13] MEDS ORDERED: dilTIAZem INJ 125 MG in IV DEXTROSE 5% 100ML 100 ML IV PRN (16:15)
--- NOTE | 2019-02-13 16:22 | NUR ---
[facility] following pt. Spoke with Jory who also visited pt today. He stated they are able to take pt as long as pt will not be on expensive IV abx. Will continue to follow.
[2019-02-13] MEDS: MICAFUNGIN 100 MG in IV DEXTROSE 5% 100ML 100 ML IV SCH (16:54)
--- NOTE | 2019-02-13 18:06 | NUR ---
Pt arrived to unit from recovery in stable condition. Pt cardiac rhythm is noted as A fib with RVR HR of 128. Binu surgical sites wrapped per recovery and noted to have a scant amount of sanguineous drainage. Pt is alert and oriented. Will continue to monitor at this time.
--- NOTE | 2019-02-13 18:26 | PDOC2 ---
CARDIAC CONSULT DATE OF CONSULT Date of Consult DATE: 02/13/19 TIME: 18:14 REASON FOR CONSULT Reason for Consult: AFIB with RVR REFERRING PHYSICIAN Referring Physician: KERI Angulo SOURCE Source: Chart review, Patient HISTORY OF PRESENT ILLNESS HISTORY OF PRESENT ILLNESS This is a 73 yo female, with a history of aortic valvular insufficiency s/p AVR (bovine), diabetes, CHF, PAD, AVR, recent pacemaker removal, who presented from wound clinic due to foul odor wounds of her left foot with exposed bone. MRI notable for osteomyelitis. Patient underwent debridement of bilateral foot ulcers to subcutaneous tissue ad left 2nd and 3rd toe amputation. Post- operatively, was noted in AFIB with RVR, which prompted this consult. Of note, patient has a history of chronic AFIB. Is on metoprolol for rate control. This has not been resumed since hospitalization. Is on coumadin for stroke prevention. Follows with cardiology. PAST MEDICAL HISTORY Cardiovascular: AFIB, CHF, HTN, Hyperlipidemia, Valve insufficiency (s/p AVR), Other (PAD) Pulmonary: No pertinent hx CENTRAL NERVOUS SYSTEM: Other (no pertinent Hx) GI: No pertinent hx Heme/Onc: No pertinent hx Hepatobiliary: No pertinent hx Psych: No pertinent hx Musculoskeletal: Osteoarthritis Rheumatologic: No pertinent hx Infectious disease: No pertinent hx ENT: No pertinent hx Renal/: Chronic renal insuff Endocrine: Diabetes Dermatology: No pertinent hx PAST SURGICAL HISTORY Past Surgical History: Other (AVR, back surgery) FAMILY HISTORY Family History: Diabetes, Hypertension SOCIAL HISTORY Smoke: <1 pack per day ALCOHOL: none Drugs: None Lives: with Family CURRENT MEDICATIONS CURRENT MEDICATIONS Current Medications Medications (Trade) Dose Ordered Sig/Lili Route PRN Reason Start Time Stop Time Status Last Admin Dose Admin Ringer's Solution 1,000 ml @ 30 mls/hr Q24H IV 02/13/19 07:00 02/13/19 18:59 02/13/19 09:46 Prochlorperazine Edisylate (Compazine) 5 mg PACU PRN PRN IV NAUSEA, MRX1 02/13/19 07:00 02/14/19 06:59 02/13/19 11:38 Piperacillin Sod/ Tazobactam Sod 2.25 gm/Sodium Chloride 50 ml @ 100 mls/hr Q8HRS IV 02/13/19 14:00 4/18/19 15:41 Heparin Sodium/ Dextrose 500 ml @ 0 mls/hr CONT PRN IV SEE I/O RECORD 02/13/19 12:30 02/13/19 13:31 Info (Anti-Coagulation Monitoring By Pharmacy) 1 each PRN DAILY PRN MC SEE COMMENTS 02/13/19 11:45 02/13/19 15:45 Digoxin (Lanoxin) 250 mcg 1X ONCE IV 02/13/19 12:30 02/13/19 12:31 DC 02/13/19 12:26 Diltiazem HCl 125 mg/Dextrose 125 ml @ 5 mls/hr CONT PRN IV SEE I/O RECORD 02/13/19 16:15 02/13/19 16:55 ALLERGIES ALLERGIES: Coded Allergies: No Known Drug Allergies (Unverified , 02/11/19) ROS Review of System 14 point ROS conducted with pertinent positives noted above in HPI. PHYSICAL EXAM General: Alert, Oriented X3, Cooperative, No acute distress HEENT: Atraumatic Lungs: Clear to auscultation Heart: Other (IRRR; tele AFIB with RVR) Abdomen: Soft, No tenderness Skin: Other (DRSG intact to bilaterl feet) Neuro: Normal speech, Sensation intact Psych/Mental Status: Mental status NL, Mood NL MUSCULOSKELETAL: Osteoarthritic changes both hands VITALS VITALS Vital Signs Date Time Temp Pulse Resp B/P (MAP) Pulse Ox O2 Delivery O2 Flow Rate FiO2 02/13/19 17:45 120 104/52 (69) 02/13/19 15:00 97.9 20 93 97.9 02/13/19 13:30 Nasal Cannula 1.0 LABS Lab: Laboratory Tests Test 02/12/19 20:49 02/13/19 03:30 02/13/19 07:26 02/13/19 11:41 Glucose (Fingerstick) 199 mg/dL (70-99) 110 mg/dL (70-99) 137 mg/dL (70-99) White Blood Count 5.9 x10^3/uL (4.0-11.0) Red Blood Count 4.38 x10^6/uL (3.50-5.40) Hemoglobin 11.2 g/dL (12.0-15.5) Hematocrit 35.9 % (36.0-47.0) Mean Corpuscular Volume 82 fL (79-100) Mean Corpuscular Hemoglobin 26 pg (25-35) Mean Corpuscular Hemoglobin Concent 31 g/dL (31-37) Red Cell Distribution Width 20.6 % (11.5-14.5) Platelet Count 220 x10^3/uL (140-400) Neutrophils (%) (Auto) 64 % (31-73) Lymphocytes (%) (Auto) 19 % (24-48) Monocytes (%) (Auto) 10 % (0-9) Eosinophils (%) (Auto) 5 % (0-3) Basophils (%) (Auto) 2 % (0-3) Neutrophils # (Auto) 3.8 x10^3uL (1.8-7.7) Lymphocytes # (Auto) 1.1 x10^3/uL (1.0-4.8) Monocytes # (Auto) 0.6 x10^3/uL (0.0-1.1) Eosinophils # (Auto) 0.3 x10^3/uL (0.0-0.7) Basophils # (Auto) 0.1 x10^3/uL (0.0-0.2) Prothrombin Time 20.5 SEC (11.7-14.0) Prothromb Time International Ratio 1.8 (0.8-1.1) Sodium Level 134 mmol/L (136-145) Potassium Level 4.9 mmol/L (3.5-5.1) Chloride Level 99 mmol/L (98-107) Carbon Dioxide Level 22 mmol/L (21-32) Anion Gap 13 (6-14) Blood Urea Nitrogen 47 mg/dL (7-20) Creatinine 2.5 mg/dL (0.6-1.0) Estimated GFR (Cockcroft-Gault) 18.9 Glucose Level 133 mg/dL (70-99) Calcium Level 8.3 mg/dL (8.5-10.1) Test 02/13/19 13:50 02/13/19 16:24 Activated Partial Thromboplast Time 38 SEC (24-38) Glucose (Fingerstick) 202 mg/dL (70-99) ASSESSMENT/PLAN ASSESSMENT/PLAN 1. PAD/chronic wounds; s/p left 2nd and 3rd toe amputation and debridement of bilateral foot ulcers 2. Chronic AFIB; presently with RVR; on metoprolol at home, which had not been resumed inpatient 3. Hypertension 4. Hyperlipidemia 5. Chronic probable diastolic HF; compensated 6. Hyperlipidemia 7. s/p AVR (bovine) 8. Diabetes, II 9. SIMA on CKD Recommendations Digoxin IV x 1 now Resume metoprolol for rate control Warfarin for stroke prevention- Heparin until INR therapeutic as ordered Echo to assess LV systolic function Records from TERRY DELGADO APRN Feb 13, 2019 18:26
--- NOTE | 2019-02-13 18:35 | PDOC2 ---
CONSULT Date of Consult Date of Consult DATE: 02/13/19 TIME: 18:24 Reason for Consult Reason for Consult: Rapid atrial fibrillation Referring Physician Referring Physician: Dr. Viera Identification/Chief Complaint Chief Complaint Leg pain Source Source: Chart review, Patient History of Present Illness Reason for Visit: The patient is a 73-year-old female with multiple medical problems who was admitted 3 days ago on the for bilateral leg cellulitis area patient has been worked up and was found to have osteomyelitis and nonhealing wounds and was evaluated by the vascular surgery service. She was brought to the emergency to the operating room today and had a first and second toe amputation on the left as well as a debridement of the patient's other wounds. Postoperatively the patient went into a rapid atrial fibrillation. By report she has chronic atrial fibrillation but required doses of IV digoxin and is now been placed and a Cardizem drip. Her rate is down to 110-120 with an acceptable blood pressure. She has a very limited historian at this time. Significant history however does include an apparent relatively recent aortic valve replacement at , significant peripheral arterial disease, hypertension, heart failure and possible previous coronary disease. Reportedly she has had chronic atrial fibrillation for at least several years. Past Medical History Cardiovascular: CAD, CHF, HTN, Aortic stenosis Pulmonary: No pertinent hx CENTRAL NERVOUS SYSTEM: Periperal neuropathy GI: No pertinent hx Heme/Onc: No pertinent hx Hepatobiliary: No pertinent hx Psych: No pertinent hx Musculoskeletal: Weakness Rheumatologic: No pertinent hx Infectious disease: No pertinent hx ENT: No pertinent hx Renal/: No pertinent hx Endocrine: Diabetes Dermatology: Cellulitis Past Surgical History Past Surgical History: Pacemaker, Other (AVR) Family History Family History: Family History Unknown Social History 1 pack per day ALCOHOL: none Drugs: None Current Medications Current Medications Current Medications Ondansetron HCl (Zofran) 4 mg PRN Q6HRS PRN IV NAUSEA/VOMITING Last administered on 02/12/19at 06:11; Start 02/11/19 at 14:15 Acetaminophen/ Hydrocodone Bitart (Lortab 5/325) 1 tab PRN Q4HRS PRN PO MILD PAIN; Start 02/11/19 at 14:15 Acetaminophen (Tylenol) 650 mg PRN Q6HRS PRN PO Headaches, Temp > 101.5F; Start 02/11/19 at 14:15 Senna/Docusate Sodium (Senna Plus) 1 tab BID PO Last administered on 02/12/19at 21:00; Start 02/11/19 at 21:00 Lactulose (Lactulose) 20 gm PRN Q12HR PRN PO CONSTIPATION; Start 02/11/19 at 14 :15 Heparin Sodium (Porcine) (Heparin Sodium) 5,000 unit Q8HRS SQ ; Start 02/11/19 at 22:00; Stop 02/12/19 at 13:53; Status DC Piperacillin Sod/ Tazobactam Sod 3.375 gm/Sodium Chloride 50 ml @ 100 mls/hr Q6HRS IV Last administered on 02/13/19at 05:50; Start 02/11/19 at 18:00; Stop at 10:05; Status DC Micafungin Sodium 100 mg/Dextrose 100 ml @ 100 mls/hr Q24H IV Last administered on 02/13/19at 16:54; Start 02/11/19 at 16:00 Linezolid (Zyvox) 600 mg BID PO Last administered on 02/12/19at 20:57; Start at 21:00 Insulin Glargine (Lantus) 10 units QHS SQ Last administered on 02/12/19at 21:04 ; Start 02/11/19 at 21:00 Insulin Human Lispro (HumaLOG) 0-7 UNITS TIDWMEALS SQ Last administered on 02/13at 16:54; Start 02/12/19 at 08:00 Dextrose (Dextrose 50%-Water Syringe) 12.5 gm PRN Q15MIN PRN IV SEE COMMENTS; Start 02/11/19 at 19:45 Zolpidem Tartrate (Ambien) 5 mg PRN QHS PRN PO INSOMNIA Last administered on at 22:20; Start 02/11/19 at 21:15 Lidocaine HCl 48 ml/Sodium Bicarbonate 12 meq/Miscellaneous 60 ml @ 60 mls/hr 1X ONCE ID ; Start 02/13/19 at 06:00; Stop 02/13/19 at 06:59; Status DC Ondansetron HCl (Zofran) 4 mg PRN Q6HRS PRN IV NAUSEA/VOMITING; Start 02/13/19 at 07:00; Stop 02/13/19 at 16:31; Status DC Fentanyl Citrate (Fentanyl 2ml Vial) 25 mcg PRN Q5MIN PRN IV MILD PAIN; Start 02/13/19 at 07:00; Stop 02/14/19 at 06:59 Fentanyl Citrate (Fentanyl 2ml Vial) 50 mcg PRN Q5MIN PRN IV MODERATE TO SEVERE PAIN; Start 02/13/19 at 07:00; Stop 02/14/19 at 06:59 Morphine Sulfate (Morphine Sulfate) 1 mg PRN Q10MIN PRN IV SEVERE PAIN; Start 02/13/19 at 07:00; Stop 02/14/19 at 06:59 Ringer's Solution 1,000 ml @ 30 mls/hr Q24H IV Last administered on 02/13/19at 09:46; Start 02/13/19 at 07:00; Stop 02/13/19 at 18:59 Lidocaine HCl (Xylocaine-Mpf 1% 2ml Vial) 2 ml PRN 1X PRN ID PRIOR TO IV START ; Start 02/13/19 at 07:00; Stop 02/14/19 at 06:59 Hydromorphone HCl (Dilaudid) 0.5 mg PRN Q10MIN PRN IV SEV PAIN, Second choice; Start 02/13/19 at 07:00; Stop 02/14/19 at 06:59 Prochlorperazine Edisylate (Compazine) 5 mg PACU PRN PRN IV NAUSEA, MRX1 Last administered on 02/13/19at 11:38; Start 02/13/19 at 07:00; Stop 02/14/19 at 06:59 Phytonadione 5 mg/ Dextrose 50.5 ml @ 102 mls/hr 1X ONCE IV Last administered on 02/12/19at 15:30; Start 02/12/19 at 15:00; Stop 02/12/19 at 15:29 ; Status DC Propofol 20 ml @ As Directed STK-MED ONCE IV ; Start 02/13/19 at 09:42; Stop at 09:43; Status DC Dexamethasone Sodium Phosphate (Decadron) 20 mg STK-MED ONCE .ROUTE ; Start at 09:42; Stop 02/13/19 at 09:43; Status DC Lidocaine HCl (Lidocaine Pf 2% Vial) 5 ml STK-MED ONCE .ROUTE ; Start 02/13/19 at 09:42; Stop 02/13/19 at 09:43; Status DC Ondansetron HCl (Zofran) 4 mg STK-MED ONCE .ROUTE ; Start 02/13/19 at 09:42; Stop 02/13/19 at 09:43; Status DC Piperacillin Sod/ Tazobactam Sod 2.25 gm/Sodium Chloride 50 ml @ 100 mls/hr Q8HRS IV Last administered on 02/13/19at 15:41; Start 02/13/19 at 14:00 Ephedrine Sulfate (ePHEDrine PF IN SALINE SYRINGE) 50 mg STK-MED ONCE IV ; Start 02/13/19 at 10:28; Stop 02/13/19 at 10:29; Status DC Vasopressin (Vasostrict) 20 unit STK-MED ONCE .ROUTE ; Start 02/13/19 at 10:31; Stop 02/13/19 at 10:32; Status DC Esmolol HCl (Brevibloc) 100 mg STK-MED ONCE IVP ; Start 02/13/19 at 10:44; Stop 02/13/19 at 10:45; Status DC Phenylephrine HCl (PHENYLEPHRINE in 0.9% NACL PF) 1 mg STK-MED ONCE IV ; Start 02/13/19 at 10:44; Stop 02/13/19 at 10:45; Status DC Ephedrine Sulfate (ePHEDrine PF IN SALINE SYRINGE) 50 mg STK-MED ONCE IV ; Start 02/13/19 at 10:44; Stop 02/13/19 at 10:45; Status DC Sevoflurane (Ultane) 30 ml STK-MED ONCE IH ; Start 02/13/19 at 11:00; Stop 02/13 at 11:01; Status DC Morphine Sulfate (Morphine Sulfate) 2 mg PRN Q2HR PRN IV PAIN; Start 02/13/19 at 11:30 Acetaminophen/ Hydrocodone Bitart (Lortab 5/325) 2 tab PRN Q4HRS PRN PO PAIN; Start 02/13/19 at 11:30 Heparin Sodium/ Dextrose 500 ml @ 0 mls/hr CONT PRN IV SEE I/O RECORD Last administered on 02/13/19at 13:31; Start 02/13/19 at 12:30 Info (Anti-Coagulation Monitoring By Pharmacy) 1 each PRN DAILY PRN MC SEE COMMENTS Last administered on 02/13/19at 15:45; Start 02/13/19 at 11:45 Metoprolol Tartrate (Lopressor Vial) 5 mg 1X ONCE IVP ; Start 02/13/19 at 12:15 ; Stop 02/13/19 at 12:18; Status DC Digoxin (Lanoxin) 250 mcg 1X ONCE IV Last administered on 02/13/19at 12:26; Start 02/13/19 at 12:30; Stop 02/13/19 at 12:31; Status DC Lactobacillus Rhamnosus (Culturelle) 1 cap BID PO ; Start 02/13/19 at 21:00 Aspirin (Ecotrin) 81 mg DAILY PO ; Start 02/13/19 at 16:00 Metoprolol Succinate (Toprol Xl) 12.5 mg DAILY PO ; Start 02/13/19 at 16:00 Bumetanide (Bumex) 2 mg BID PO ; Start 02/13/19 at 21:00 Atorvastatin Calcium (Lipitor) 80 mg QHS PO ; Start 02/13/19 at 21:00 Diltiazem HCl 125 mg/Dextrose 125 ml @ 5 mls/hr CONT PRN IV SEE I/O RECORD Last administered on 02/13/19at 16:55; Start 02/13/19 at 16:15 Active Scripts Active Reported Aspirin Ec (Aspirin) 81 Mg Tablet.dr 1 Tab PO DAILY Bumetanide 2 Mg Tablet 1 Tab PO BID Crestor (Rosuvastatin Calcium) 40 Mg Tablet 40 Mg PO HS Warfarin Sodium 4 Mg Tablet 4 Mg PO DAILY Metoprolol Succinate ( Xl ) (Metoprolol Succinate) 25 Mg Tab.er.24h 0.5 Tab PO DAILY Allergies Allergies: Coded Allergies: No Known Drug Allergies (Unverified , 02/11/19) ROS Review of System The patient cannot give a clear review of systems at this time. Physical Exam General: mild distress HEENT: Atraumatic Lungs: Other (mildly decreased breath sounds) Heart: Other (irregularly irregular with a rate of 120) Abdomen: Normal bowel sounds Vitals VITALS Vital Signs Date Time Temp Pulse Resp B/P (MAP) Pulse Ox O2 Delivery O2 Flow Rate FiO2 02/13/19 17:45 120 104/52 (69) 02/13/19 15:00 97.9 20 93 97.9 02/13/19 13:30 Nasal Cannula 1.0 Labs Labs Laboratory Tests Test 02/11/19 20:30 02/12/19 06:00 02/12/19 06:10 02/12/19 07:13 Glucose (Fingerstick) 242 mg/dL (70-99) 146 mg/dL (70-99) Prothrombin Time 35.0 SEC (11.7-14.0) Prothromb Time International Ratio 3.5 (0.8-1.1) White Blood Count 8.4 x10^3/uL (4.0-11.0) Red Blood Count 4.10 x10^6/uL (3.50-5.40) Hemoglobin 10.6 g/dL (12.0-15.5) Hematocrit 33.6 % (36.0-47.0) Mean Corpuscular Volume 82 fL (79-100) Mean Corpuscular Hemoglobin 26 pg (25-35) Mean Corpuscular Hemoglobin Concent 32 g/dL (31-37) Red Cell Distribution Width 20.6 % (11.5-14.5) Platelet Count 212 x10^3/uL (140-400) Neutrophils (%) (Auto) 75 % (31-73) Lymphocytes (%) (Auto) 14 % (24-48) Monocytes (%) (Auto) 9 % (0-9) Eosinophils (%) (Auto) 1 % (0-3) Basophils (%) (Auto) 1 % (0-3) Neutrophils # (Auto) 6.4 x10^3uL (1.8-7.7) Lymphocytes # (Auto) 1.2 x10^3/uL (1.0-4.8) Monocytes # (Auto) 0.7 x10^3/uL (0.0-1.1) Eosinophils # (Auto) 0.1 x10^3/uL (0.0-0.7) Basophils # (Auto) 0.1 x10^3/uL (0.0-0.2) Sodium Level 130 mmol/L (136-145) Potassium Level 4.7 mmol/L (3.5-5.1) Chloride Level 96 mmol/L (98-107) Carbon Dioxide Level 22 mmol/L (21-32) Anion Gap 12 (6-14) Blood Urea Nitrogen 43 mg/dL (7-20) Creatinine 2.1 mg/dL (0.6-1.0) Estimated GFR (Cockcroft-Gault) 23.2 BUN/Creatinine Ratio 20 (6-20) Glucose Level 153 mg/dL (70-99) Calcium Level 8.1 mg/dL (8.5-10.1) Total Bilirubin 0.6 mg/dL (0.2-1.0) Aspartate Amino Transf (AST/SGOT) 32 U/L (15-37) Alanine Aminotransferase (ALT/SGPT) 21 U/L (14-59) Alkaline Phosphatase 212 U/L (46-116) Total Protein 7.5 g/dL (6.4-8.2) Albumin 2.2 g/dL (3.4-5.0) Albumin/Globulin Ratio 0.4 (1.0-1.7) Test 02/12/19 11:25 02/12/19 16:18 02/12/19 20:49 02/13/19 03:30 Glucose (Fingerstick) 120 mg/dL (70-99) 141 mg/dL (70-99) 199 mg/dL (70-99) White Blood Count 5.9 x10^3/uL (4.0-11.0) Red Blood Count 4.38 x10^6/uL (3.50-5.40) Hemoglobin 11.2 g/dL (12.0-15.5) Hematocrit 35.9 % (36.0-47.0) Mean Corpuscular Volume 82 fL (79-100) Mean Corpuscular Hemoglobin 26 pg (25-35) Mean Corpuscular Hemoglobin Concent 31 g/dL (31-37) Red Cell Distribution Width 20.6 % (11.5-14.5) Platelet Count 220 x10^3/uL (140-400) Neutrophils (%) (Auto) 64 % (31-73) Lymphocytes (%) (Auto) 19 % (24-48) Monocytes (%) (Auto) 10 % (0-9) Eosinophils (%) (Auto) 5 % (0-3) Basophils (%) (Auto) 2 % (0-3) Neutrophils # (Auto) 3.8 x10^3uL (1.8-7.7) Lymphocytes # (Auto) 1.1 x10^3/uL (1.0-4.8) Monocytes # (Auto) 0.6 x10^3/uL (0.0-1.1) Eosinophils # (Auto) 0.3 x10^3/uL (0.0-0.7) Basophils # (Auto) 0.1 x10^3/uL (0.0-0.2) Prothrombin Time 20.5 SEC (11.7-14.0) Prothromb Time International Ratio 1.8 (0.8-1.1) Sodium Level 134 mmol/L (136-145) Potassium Level 4.9 mmol/L (3.5-5.1) Chloride Level 99 mmol/L (98-107) Carbon Dioxide Level 22 mmol/L (21-32) Anion Gap 13 (6-14) Blood Urea Nitrogen 47 mg/dL (7-20) Creatinine 2.5 mg/dL (0.6-1.0) Estimated GFR (Cockcroft-Gault) 18.9 Glucose Level 133 mg/dL (70-99) Calcium Level 8.3 mg/dL (8.5-10.1) Test 02/13/19 07:26 02/13/19 11:41 02/13/19 13:50 02/13/19 16:24 Glucose (Fingerstick) 110 mg/dL (70-99) 137 mg/dL (70-99) 202 mg/dL (70-99) Activated Partial Thromboplast Time 38 SEC (24-38) Laboratory Tests Test 02/12/19 20:49 02/13/19 03:30 02/13/19 07:26 02/13/19 11:41 Glucose (Fingerstick) 199 mg/dL (70-99) 110 mg/dL (70-99) 137 mg/dL (70-99) White Blood Count 5.9 x10^3/uL (4.0-11.0) Red Blood Count 4.38 x10^6/uL (3.50-5.40) Hemoglobin 11.2 g/dL (12.0-15.5) Hematocrit 35.9 % (36.0-47.0) Mean Corpuscular Volume 82 fL (79-100) Mean Corpuscular Hemoglobin 26 pg (25-35) Mean Corpuscular Hemoglobin Concent 31 g/dL (31-37) Red Cell Distribution Width 20.6 % (11.5-14.5) Platelet Count 220 x10^3/uL (140-400) Neutrophils (%) (Auto) 64 % (31-73) Lymphocytes (%) (Auto) 19 % (24-48) Monocytes (%) (Auto) 10 % (0-9) Eosinophils (%) (Auto) 5 % (0-3) Basophils (%) (Auto) 2 % (0-3) Neutrophils # (Auto) 3.8 x10^3uL (1.8-7.7) Lymphocytes # (Auto) 1.1 x10^3/uL (1.0-4.8) Monocytes # (Auto) 0.6 x10^3/uL (0.0-1.1) Eosinophils # (Auto) 0.3 x10^3/uL (0.0-0.7) Basophils # (Auto) 0.1 x10^3/uL (0.0-0.2) Prothrombin Time 20.5 SEC (11.7-14.0) Prothromb Time International Ratio 1.8 (0.8-1.1) Sodium Level 134 mmol/L (136-145) Potassium Level 4.9 mmol/L (3.5-5.1) Chloride Level 99 mmol/L (98-107) Carbon Dioxide Level 22 mmol/L (21-32) Anion Gap 13 (6-14) Blood Urea Nitrogen 47 mg/dL (7-20) Creatinine 2.5 mg/dL (0.6-1.0) Estimated GFR (Cockcroft-Gault) 18.9 Glucose Level 133 mg/dL (70-99) Calcium Level 8.3 mg/dL (8.5-10.1) Test 02/13/19 13:50 02/13/19 16:24 Activated Partial Thromboplast Time 38 SEC (24-38) Glucose (Fingerstick) 202 mg/dL (70-99) Assessment/Plan Assessment/Plan 1. Rapid atrial fibrillation. Patient reportedly has chronic atrial fibrillation. She has been treated with digoxin and now on IV Cardizem. Her rate is under much better control will continue present medications and restart oral medications tomorrow. The patient is anticoagulated secondary to her aortic valve. 2. Vascular surgery today with first and second toe amputation on the left as well as debridement. Continue postop care as per vascular surgery. 3. Aortic stenosis. Status post aortic valve replacement at . We'll check an echocardiogram for function and LV status. 4. Heart failure. Reasonably compensated. Echo as above. 5. Peripheral arterial disease. Followed by the vascular surgery service. 6. Hypertension. We'll adjust medications once the patient is off IV Cardizem. Thank you for allowing us to participate in the care of your patient. MONIKA CASTILLO MD Feb 13, 2019 18:34
[2019-02-13] MEDS: BUMETANIDE 1 MG TABLET. PO SCH (20:43)
[2019-02-13] MEDS: ATORVASTATIN CALCIUM 40 MG TABLET. PO SCH (20:45)
[2019-02-13] MEDS: LACTOBACILLUS RHAMNOSUS GG 1 CAPSULE. PO SCH (20:45)
[2019-02-13] MEDS: INSULIN GLARGINE 300 UNITS/3 ML INSULN.PEN. SQ SCH (21:01)
[2019-02-13] MEDS ORDERED: INSULIN LISPRO 300 UNITS/3 ML INSULN.PEN. SQ ONE (21:30)
[2019-02-14] VITALS (11 sets, daily range): BP systolic 108–166; BP diastolic 49–75
[2019-02-14 04:07] LABS: BASO % 0 % (0-3); EOS % 0 % (0-3); HEMATOCRIT 35.8 % (36.0-47.0); HEMOGLOBIN 11.4 g/dL (12.0-15.5); LYMPH # 0.6 x10^3/uL (1.0-4.8); LYMPH % 10 % (24-48); MEAN CORPUSCULAR HEMOGLOBIN 26 pg (25-35); MEAN CORPUSCULAR HGB CONC 32 g/dL (31-37); MEAN CORPUSCULAR VOLUME 82 fL (79-100); MONO # 0.3 x10^3/uL (0.0-1.1); MONO % 5 % (0-9); NEUT % 85 % (31-73); PLATELET COUNT 204 x10^3/uL (140-400); RED BLOOD COUNT 4.38 x10^6/uL (3.50-5.40); WHITE BLOOD COUNT 5.9 x10^3/uL (4.0-11.0)
[2019-02-14 04:14] LABS: CALCIUM 8.3 mg/dL (8.5-10.1); CREATININE 2.6 mg/dL (0.6-1.0); GFR 18.1; POTASSIUM 5.2 mmol/L (3.5-5.1)
[2019-02-14 04:22] LABS: PROTHROMBIN TIME PATIENT 19.4 SEC (11.7-14.0)
[2019-02-14 05:26] LABS: ANISOCYTOSIS MOD; BURR CELLS FEW; HYPOCHROMIA SLIGHT; OVALOCYTES FEW; PLT ESTIMATE ADEQUATE (ADEQUATE); POIKILOCYTOSIS SLIGHT; POLYCHROMASIA SLIGHT; TEAR DROP CELLS OCC
--- NOTE | 2019-02-14 05:33 | EKG ---
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
[2019-02-14] MEDS: PIPERACILLIN/TAZOBACTAM 2.25 GM in IV NORMAL SALINE 50ML 50 ML IV SCH (06:10)
--- NOTE | 2019-02-14 07:51 | PDOC ---
Infectious Disease Note Subjective: Subjective pt says feels better postop pain is under control no f/c/v/d/abdo pain/sob ROS: ROS Negative except for above. Vital Signs: Vital Signs Vital Signs Date Time Temp Pulse Resp B/P (MAP) Pulse Ox O2 Delivery O2 Flow Rate FiO2 02/14/19 07:13 97.4 76 16 119/55 (76) 98 Nasal Cannula 2.0 97.4 Physical Exam: PHYSICAL EXAM GENERAL: Alert, oriented female in nad HEENT: Normocephalic, atraumatic. Anicteric. Poor dentition. No thrush. NECK: Supple. LUNGS: Clear. HEART: S1, S2. ABDOMEN: Soft. Bowel sounds present, nondistended. EXTREMITIES: No edema, no clubbing, no cyanosis.Bilateral foot ulcerations, Ulceration on the plantar aspect of the right foot, ulceration at the tip of the second toe of the left foot, multiple foot ulcers, syndactyly of the second and the third toe bilaterally, onychomycosis. CENTRAL NERVOUS SYSTEM: Moves all 4 extremities. Alert, oriented x 3, grossly nonfocal. PSYCHIATRIC: Cooperative, appropriate mood and affect. Medications: Inpatient Meds: Current Medications Medications (Trade) Dose Ordered Sig/Lili Start Time Stop Time Status Last Admin Dose Admin Acetaminophen (Tylenol) 650 mg PRN Q6HRS PRN 02/11/19 14:15 Acetaminophen/ Hydrocodone Bitart (Lortab 5/325) 2 tab PRN Q4HRS PRN 02/13/19 11:30 Aspirin (Ecotrin) 81 mg DAILY 02/13/19 16:00 Atorvastatin Calcium (Lipitor) 80 mg QHS 02/13/19 21:00 02/13/19 20:45 80 MG Bumetanide (Bumex) 2 mg BID 02/13/19 21:00 02/13/19 20:43 2 MG Dexamethasone Sodium Phosphate (Decadron) 20 mg STK-MED ONCE 02/13/19 09:42 02/13/19 09:43 DC Dextrose (Dextrose 50%-Water Syringe) 12.5 gm PRN Q15MIN PRN 02/11/19 19:45 Digoxin (Lanoxin) 250 mcg 1X ONCE 02/13/19 12:30 02/13/19 12:31 DC 02/13/19 12:26 250 MCG Diltiazem HCl 125 mg/Dextrose 125 ml @ 5 mls/hr CONT PRN 02/13/19 16:15 02/13/19 16:55 5 MLS/HR Ephedrine Sulfate (ePHEDrine PF IN SALINE SYRINGE) 50 mg STK-MED ONCE 02/13/19 10:44 02/13/19 10:45 DC Esmolol HCl (Brevibloc) 100 mg STK-MED ONCE 02/13/19 10:44 02/13/19 10:45 DC Fentanyl Citrate (Fentanyl 2ml Vial) 50 mcg PRN Q5MIN PRN 02/13/19 07:00 02/14/19 06:59 DC Heparin Sodium (Porcine) (Heparin Sodium) 5,000 unit Q8HRS 02/11/19 22:00 02/12/19 13:53 DC Heparin Sodium/ Dextrose 500 ml @ 0 mls/hr CONT PRN 02/13/19 12:30 02/13/19 13:31 17.9 MLS/HR Hydromorphone HCl (Dilaudid) 0.5 mg PRN Q10MIN PRN 02/13/19 07:00 02/14/19 06:59 DC Info (Anti-Coagulation Monitoring By Pharmacy) 1 each PRN DAILY PRN 02/13/19 11:45 02/13/19 15:45 1 EACH Insulin Glargine (Lantus) 10 units QHS 02/11/19 21:00 02/13/19 21:01 10 UNITS Insulin Human Lispro (HumaLOG) 9 units 1X ONCE 02/13/19 21:30 02/13/19 21:31 DC 02/13/19 22:04 9 UNITS Lactobacillus Rhamnosus (Culturelle) 1 cap BID 02/13/19 21:00 02/13/19 20:45 1 CAP Lactulose (Lactulose) 20 gm PRN Q12HR PRN 02/11/19 14:15 Lidocaine HCl (Lidocaine Pf 2% Vial) 5 ml STK-MED ONCE 02/13/19 09:42 02/13/19 09:43 DC Lidocaine HCl (Xylocaine-Mpf 1% 2ml Vial) 2 ml PRN 1X PRN 02/13/19 07:00 02/14/19 06:59 DC Lidocaine HCl 48 ml/Sodium Bicarbonate 12 meq/Miscellaneous 60 ml @ 60 mls/hr 1X ONCE 02/13/19 06:00 02/13/19 06:59 DC Linezolid (Zyvox) 600 mg BID 02/11/19 21:00 02/13/19 20:44 600 MG Metoprolol Succinate (Toprol Xl) 12.5 mg DAILY 02/13/19 16:00 Metoprolol Tartrate (Lopressor Vial) 5 mg 1X ONCE 02/13/19 12:15 02/13/19 12:18 DC Micafungin Sodium 100 mg/Dextrose 100 ml @ 100 mls/hr Q24H 02/11/19 16:00 02/13/19 16:54 100 MLS/HR Morphine Sulfate (Morphine Sulfate) 2 mg PRN Q2HR PRN 02/13/19 11:30 02/13/19 20:44 2 MG Ondansetron HCl (Zofran) 4 mg STK-MED ONCE 02/13/19 09:42 02/13/19 09:43 DC Phenylephrine HCl (PHENYLEPHRINE in 0.9% NACL PF) 1 mg STK-MED ONCE 02/13/19 10:44 02/13/19 10:45 DC Phytonadione 5 mg/ Dextrose 50.5 ml @ 102 mls/hr 1X ONCE 02/12/19 15:00 02/12/19 15:29 DC 02/12/19 15:30 102 MLS/HR Piperacillin Sod/ Tazobactam Sod 2.25 gm/Sodium Chloride 50 ml @ 100 mls/hr Q8HRS 02/13/19 14:00 02/14/19 06:10 100 MLS/HR Piperacillin Sod/ Tazobactam Sod 3.375 gm/Sodium Chloride 50 ml @ 100 mls/hr Q6HRS 02/11/19 18:00 02/13/19 10:05 DC 02/13/19 05:50 100 MLS/HR Prochlorperazine Edisylate (Compazine) 5 mg PACU PRN PRN 02/13/19 07:00 02/14/19 06:59 DC 02/13/19 11:38 5 MG Propofol 20 ml @ As Directed STK-MED ONCE 02/13/19 09:42 02/13/19 09:43 DC Ringer's Solution 1,000 ml @ 30 mls/hr Q24H 02/13/19 07:00 02/13/19 18:59 DC 02/13/19 09:46 30 MLS/HR Senna/Docusate Sodium (Senna Plus) 1 tab BID 02/11/19 21:00 02/13/19 20:45 1 TAB Sevoflurane (Ultane) 30 ml STK-MED ONCE 02/13/19 11:00 02/13/19 11:01 DC Vasopressin (Vasostrict) 20 unit STK-MED ONCE 02/13/19 10:31 02/13/19 10:32 DC Zolpidem Tartrate (Ambien) 5 mg PRN QHS PRN 02/11/19 21:15 02/12/19 22:20 5 MG Labs: Lab Laboratory Tests Test 02/13/19 11:41 02/13/19 13:50 02/13/19 16:24 02/13/19 19:40 Glucose (Fingerstick) 137 mg/dL (70-99) 202 mg/dL (70-99) Activated Partial Thromboplast Time 38 SEC (24-38) Heparin Anti-Xa Act, Unfractionated 0.11 IU/mL (0.30-0.70) Test 02/13/19 20:07 02/14/19 03:40 02/14/19 06:57 Glucose (Fingerstick) 368 mg/dL (70-99) 284 mg/dL (70-99) White Blood Count 5.9 x10^3/uL (4.0-11.0) Red Blood Count 4.38 x10^6/uL (3.50-5.40) Hemoglobin 11.4 g/dL (12.0-15.5) Hematocrit 35.8 % (36.0-47.0) Mean Corpuscular Volume 82 fL (79-100) Mean Corpuscular Hemoglobin 26 pg (25-35) Mean Corpuscular Hemoglobin Concent 32 g/dL (31-37) Red Cell Distribution Width 21.0 % (11.5-14.5) Platelet Count 204 x10^3/uL (140-400) Neutrophils (%) (Auto) 85 % (31-73) Lymphocytes (%) (Auto) 10 % (24-48) Monocytes (%) (Auto) 5 % (0-9) Eosinophils (%) (Auto) 0 % (0-3) Basophils (%) (Auto) 0 % (0-3) Neutrophils # (Auto) 5.0 x10^3uL (1.8-7.7) Lymphocytes # (Auto) 0.6 x10^3/uL (1.0-4.8) Monocytes # (Auto) 0.3 x10^3/uL (0.0-1.1) Eosinophils # (Auto) 0.0 x10^3/uL (0.0-0.7) Basophils # (Auto) 0.0 x10^3/uL (0.0-0.2) Platelet Estimate Adequate (ADEQUATE) Polychromasia Slight Hypochromasia Slight Poikilocytosis Slight Anisocytosis Mod Tear Drop Cells Occ Ovalocytes Few Patito Cells Few Prothrombin Time 19.4 SEC (11.7-14.0) Prothromb Time International Ratio 1.7 (0.8-1.1) Heparin Anti-Xa Act, Unfractionated 0.22 IU/mL (0.30-0.70) Sodium Level 127 mmol/L (136-145) Potassium Level 5.2 mmol/L (3.5-5.1) Chloride Level 95 mmol/L (98-107) Carbon Dioxide Level 19 mmol/L (21-32) Anion Gap 13 (6-14) Blood Urea Nitrogen 49 mg/dL (7-20) Creatinine 2.6 mg/dL (0.6-1.0) Estimated GFR (Cockcroft-Gault) 18.1 Glucose Level 330 mg/dL (70-99) Calcium Level 8.3 mg/dL (8.5-10.1) Objective: Assessment: 1. Left second toe osteomyelitis. Multiple bilateral foot ulcers. 02/13/2019 underwent Left 2nd and 3rd toe amputation, closed Debridement of bilateral foot ulcers to subcutaneous tissue 2.Renal insufficiency 3. Onychomycosis. 4. Diabetes with peripheral neuropathy. 5. Tobacco user. 6. Coronary artery disease, status post valve replacement. 7. Peripheral vascular disease. Plan: Plan of Care DC Zosyn /zyvox, cont micafungin ,will wean off soon Start augmentin Monitor labs in a.m. and cultures. Continue wound care per Vascular. Continue supportive care. FLAVIA LAO MD Feb 14, 2019 07:51
[2019-02-14] MEDS: DOXYCYCLINE HYCLATE 100 MG TABLET PO SCH ×2 (08:34→21:47)
[2019-02-14] MEDS: BUMETANIDE 1 MG TABLET. PO SCH (08:34)
[2019-02-14] MEDS: SENNOSIDES/DOCUSATE 8.6/50MG TABLET. PO SCH ×2 (08:35→21:00)
[2019-02-14] MEDS: ASPIRIN ENTERIC COATED 81 MG TABLET.DR. PO SCH (08:35)
[2019-02-14] MEDS: LACTOBACILLUS RHAMNOSUS GG 1 CAPSULE. PO SCH ×2 (08:35→21:47)
[2019-02-14] MEDS: AMOXICILLIN/K CLAV 500/125MG TABLET. PO SCH ×2 (08:35→21:46)
[2019-02-14] MEDS: METOPROLOL SUCC 24HR ER 25 MG TAB.ER.24H. PO SCH ×3 (08:35→12:50)
[2019-02-14] MEDS: INSULIN LISPRO 300 UNITS/3 ML INSULN.PEN. SQ SCH ×7 (08:37→22:37)
--- NOTE | 2019-02-14 10:11 | PDOC ---
PROGRESS NOTES Chief Complaint Chief Complaint Left second toe osteomyelitis - Multiple bilateral foot ulcers. 02/13/2019 underwent. Left 2nd and 3rd toe amputation, closed. Debridement of bilateral foot ulcers to subcutaneous tissue Renal insufficiency Onychomycosis Peripheral vascular disease LE cellulitis - RLE worse than left, empiric coverage for strep and staph, consult ID, will obtain cultures first. Follow cultures and CBC DM - she does not know her meds, will place on basal bolus plus regimen dCHF - she feels in mild exacerbation, prn IV lasix PAD - confirmed at [facility] on 12/07/18, obtain records s/p AVR - looks aortic on recent CXR and sounds mechanical, INR daily, hold coumadin, will bridge on heparin when she is subtherapeutic in prep for surgery. Confirm valve with echo Recent pacemaker removal - will obtain blood cultures Multiple foot ulcers - wound care following Left second toe osteomyelitis. mri Findings consistent with osteomyelitis of the distal phalanx of the second toe. s/p amputation Onychomycosis. Diabetes with peripheral neuropathy. Tobacco user. FEN - ADA diet PPX - heparin GTT, can convert back to warfarin in next 1-2 days when ok with vascular surgery FULL CODE Inpatient for bilateral cellulitis and diabetic foot ulcers at least 2 midnights History of Present Illness History of Present Illness Admitted directly from wound clinic for bilateral LE wounds worsening 02/13 significant post-op complication of a-fib rvr transferred to cvc icu bed Cardizem GTT and heparin GTT on, at HR 79. She has some pain in both feet currently, feels weak. Glucose elevated. No SOB or CPR Plan: Change back to home BB dosing today Cont heparin GTT for mechanical valve, will need therapeutic INR 2.5-3.5 prior iv Zosyn, Zyvox stopped, cont micafungin. Post-op pain control Still needs her [facility] records, have not arrived yet Vitals Vitals Vital Signs Date Time Temp Pulse Resp B/P (MAP) Pulse Ox O2 Delivery O2 Flow Rate FiO2 02/14/19 08:00 Nasal Cannula 2.0 02/14/19 07:13 97.4 76 16 119/55 (76) 98 97.4 Physical Exam Physical Exam GENERAL: Alert, oriented female in nad HEENT: Normocephalic, atraumatic. Anicteric. Poor dentition. No thrush. NECK: Supple. LUNGS: Clear. HEART: S1, S2. ABDOMEN: Soft. Bowel sounds present, nondistended. EXTREMITIES: No edema, no clubbing, no cyanosis.Bilateral foot ulcerations, Ulceration on the plantar aspect of the right foot, ulceration at the tip of the second toe of the left foot, multiple foot ulcers, syndactyly of the second and the third toe bilaterally, onychomycosis. CENTRAL NERVOUS SYSTEM: Moves all 4 extremities. Alert, oriented x 3, grossly nonfocal. PSYCHIATRIC: Cooperative, appropriate mood and affect. General: Alert, Oriented X3, Cooperative, No acute distress Heart: Other (IRRR; tele AFIB with RVR) Lungs: Clear Abdomen: Soft, No tenderness Extremities: Other (2 ulcers right foot, decreased pulses. Callous on 2nd left toe and 5th MTP post op dressing dry) Skin: Other (DRSG intact to bilaterl feet) Labs LABS Laboratory Tests Test 02/13/19 11:41 02/13/19 13:50 02/13/19 16:24 02/13/19 19:40 Glucose (Fingerstick) 137 mg/dL (70-99) 202 mg/dL (70-99) Activated Partial Thromboplast Time 38 SEC (24-38) Heparin Anti-Xa Act, Unfractionated 0.11 IU/mL (0.30-0.70) Test 02/13/19 20:07 02/14/19 03:40 02/14/19 06:57 Glucose (Fingerstick) 368 mg/dL (70-99) 284 mg/dL (70-99) White Blood Count 5.9 x10^3/uL (4.0-11.0) Red Blood Count 4.38 x10^6/uL (3.50-5.40) Hemoglobin 11.4 g/dL (12.0-15.5) Hematocrit 35.8 % (36.0-47.0) Mean Corpuscular Volume 82 fL (79-100) Mean Corpuscular Hemoglobin 26 pg (25-35) Mean Corpuscular Hemoglobin Concent 32 g/dL (31-37) Red Cell Distribution Width 21.0 % (11.5-14.5) Platelet Count 204 x10^3/uL (140-400) Neutrophils (%) (Auto) 85 % (31-73) Lymphocytes (%) (Auto) 10 % (24-48) Monocytes (%) (Auto) 5 % (0-9) Eosinophils (%) (Auto) 0 % (0-3) Basophils (%) (Auto) 0 % (0-3) Neutrophils # (Auto) 5.0 x10^3uL (1.8-7.7) Lymphocytes # (Auto) 0.6 x10^3/uL (1.0-4.8) Monocytes # (Auto) 0.3 x10^3/uL (0.0-1.1) Eosinophils # (Auto) 0.0 x10^3/uL (0.0-0.7) Basophils # (Auto) 0.0 x10^3/uL (0.0-0.2) Platelet Estimate Adequate (ADEQUATE) Polychromasia Slight Hypochromasia Slight Poikilocytosis Slight Anisocytosis Mod Tear Drop Cells Occ Ovalocytes Few [place] Cells Few Prothrombin Time 19.4 SEC (11.7-14.0) Prothromb Time International Ratio 1.7 (0.8-1.1) Heparin Anti-Xa Act, Unfractionated 0.22 IU/mL (0.30-0.70) Sodium Level 127 mmol/L (136-145) Potassium Level 5.2 mmol/L (3.5-5.1) Chloride Level 95 mmol/L (98-107) Carbon Dioxide Level 19 mmol/L (21-32) Anion Gap 13 (6-14) Blood Urea Nitrogen 49 mg/dL (7-20) Creatinine 2.6 mg/dL (0.6-1.0) Estimated GFR (Cockcroft-Gault) 18.1 Glucose Level 330 mg/dL (70-99) Calcium Level 8.3 mg/dL (8.5-10.1) Comment Review of Relevant I have reviewed the following items hernandez (where applicable) has been applied. Labs Laboratory Tests Test 02/12/19 11:25 02/12/19 16:18 02/12/19 20:49 02/13/19 03:30 Glucose (Fingerstick) 120 mg/dL (70-99) 141 mg/dL (70-99) 199 mg/dL (70-99) White Blood Count 5.9 x10^3/uL (4.0-11.0) Red Blood Count 4.38 x10^6/uL (3.50-5.40) Hemoglobin 11.2 g/dL (12.0-15.5) Hematocrit 35.9 % (36.0-47.0) Mean Corpuscular Volume 82 fL (79-100) Mean Corpuscular Hemoglobin 26 pg (25-35) Mean Corpuscular Hemoglobin Concent 31 g/dL (31-37) Red Cell Distribution Width 20.6 % (11.5-14.5) Platelet Count 220 x10^3/uL (140-400) Neutrophils (%) (Auto) 64 % (31-73) Lymphocytes (%) (Auto) 19 % (24-48) Monocytes (%) (Auto) 10 % (0-9) Eosinophils (%) (Auto) 5 % (0-3) Basophils (%) (Auto) 2 % (0-3) Neutrophils # (Auto) 3.8 x10^3uL (1.8-7.7) Lymphocytes # (Auto) 1.1 x10^3/uL (1.0-4.8) Monocytes # (Auto) 0.6 x10^3/uL (0.0-1.1) Eosinophils # (Auto) 0.3 x10^3/uL (0.0-0.7) Basophils # (Auto) 0.1 x10^3/uL (0.0-0.2) Prothrombin Time 20.5 SEC (11.7-14.0) Prothromb Time International Ratio 1.8 (0.8-1.1) Sodium Level 134 mmol/L (136-145) Potassium Level 4.9 mmol/L (3.5-5.1) Chloride Level 99 mmol/L (98-107) Carbon Dioxide Level 22 mmol/L (21-32) Anion Gap 13 (6-14) Blood Urea Nitrogen 47 mg/dL (7-20) Creatinine 2.5 mg/dL (0.6-1.0) Estimated GFR (Cockcroft-Gault) 18.9 Glucose Level 133 mg/dL (70-99) Calcium Level 8.3 mg/dL (8.5-10.1) Test 02/13/19 07:26 02/13/19 11:41 02/13/19 13:50 02/13/19 16:24 Glucose (Fingerstick) 110 mg/dL (70-99) 137 mg/dL (70-99) 202 mg/dL (70-99) Activated Partial Thromboplast Time 38 SEC (24-38) Test 02/13/19 19:40 02/13/19 20:07 02/14/19 03:40 02/14/19 06:57 Heparin Anti-Xa Act, Unfractionated 0.11 IU/mL (0.30-0.70) 0.22 IU/mL (0.30-0.70) Glucose (Fingerstick) 368 mg/dL (70-99) 284 mg/dL (70-99) White Blood Count 5.9 x10^3/uL (4.0-11.0) Red Blood Count 4.38 x10^6/uL (3.50-5.40) Hemoglobin 11.4 g/dL (12.0-15.5) Hematocrit 35.8 % (36.0-47.0) Mean Corpuscular Volume 82 fL (79-100) Mean Corpuscular Hemoglobin 26 pg (25-35) Mean Corpuscular Hemoglobin Concent 32 g/dL (31-37) Red Cell Distribution Width 21.0 % (11.5-14.5) Platelet Count 204 x10^3/uL (140-400) Neutrophils (%) (Auto) 85 % (31-73) Lymphocytes (%) (Auto) 10 % (24-48) Monocytes (%) (Auto) 5 % (0-9) Eosinophils (%) (Auto) 0 % (0-3) Basophils (%) (Auto) 0 % (0-3) Neutrophils # (Auto) 5.0 x10^3uL (1.8-7.7) Lymphocytes # (Auto) 0.6 x10^3/uL (1.0-4.8) Monocytes # (Auto) 0.3 x10^3/uL (0.0-1.1) Eosinophils # (Auto) 0.0 x10^3/uL (0.0-0.7) Basophils # (Auto) 0.0 x10^3/uL (0.0-0.2) Platelet Estimate Adequate (ADEQUATE) Polychromasia Slight Hypochromasia Slight Poikilocytosis Slight Anisocytosis Mod Tear Drop Cells Occ Ovalocytes Few [place] Cells Few Prothrombin Time 19.4 SEC (11.7-14.0) Prothromb Time International Ratio 1.7 (0.8-1.1) Sodium Level 127 mmol/L (136-145) Potassium Level 5.2 mmol/L (3.5-5.1) Chloride Level 95 mmol/L (98-107) Carbon Dioxide Level 19 mmol/L (21-32) Anion Gap 13 (6-14) Blood Urea Nitrogen 49 mg/dL (7-20) Creatinine 2.6 mg/dL (0.6-1.0) Estimated GFR (Cockcroft-Gault) 18.1 Glucose Level 330 mg/dL (70-99) Calcium Level 8.3 mg/dL (8.5-10.1) Laboratory Tests Test 02/13/19 11:41 02/13/19 13:50 02/13/19 16:24 02/13/19 19:40 Glucose (Fingerstick) 137 mg/dL (70-99) 202 mg/dL (70-99) Activated Partial Thromboplast Time 38 SEC (24-38) Heparin Anti-Xa Act, Unfractionated 0.11 IU/mL (0.30-0.70) Test 02/13/19 20:07 02/14/19 03:40 02/14/19 06:57 Glucose (Fingerstick) 368 mg/dL (70-99) 284 mg/dL (70-99) White Blood Count 5.9 x10^3/uL (4.0-11.0) Red Blood Count 4.38 x10^6/uL (3.50-5.40) Hemoglobin 11.4 g/dL (12.0-15.5) Hematocrit 35.8 % (36.0-47.0) Mean Corpuscular Volume 82 fL (79-100) Mean Corpuscular Hemoglobin 26 pg (25-35) Mean Corpuscular Hemoglobin Concent 32 g/dL (31-37) Red Cell Distribution Width 21.0 % (11.5-14.5) Platelet Count 204 x10^3/uL (140-400) Neutrophils (%) (Auto) 85 % (31-73) Lymphocytes (%) (Auto) 10 % (24-48) Monocytes (%) (Auto) 5 % (0-9) Eosinophils (%) (Auto) 0 % (0-3) Basophils (%) (Auto) 0 % (0-3) Neutrophils # (Auto) 5.0 x10^3uL (1.8-7.7) Lymphocytes # (Auto) 0.6 x10^3/uL (1.0-4.8) Monocytes # (Auto) 0.3 x10^3/uL (0.0-1.1) Eosinophils # (Auto) 0.0 x10^3/uL (0.0-0.7) Basophils # (Auto) 0.0 x10^3/uL (0.0-0.2) Platelet Estimate Adequate (ADEQUATE) Polychromasia Slight Hypochromasia Slight Poikilocytosis Slight Anisocytosis Mod Tear Drop Cells Occ Ovalocytes Few [place] Cells Few Prothrombin Time 19.4 SEC (11.7-14.0) Prothromb Time International Ratio 1.7 (0.8-1.1) Heparin Anti-Xa Act, Unfractionated 0.22 IU/mL (0.30-0.70) Sodium Level 127 mmol/L (136-145) Potassium Level 5.2 mmol/L (3.5-5.1) Chloride Level 95 mmol/L (98-107) Carbon Dioxide Level 19 mmol/L (21-32) Anion Gap 13 (6-14) Blood Urea Nitrogen 49 mg/dL (7-20) Creatinine 2.6 mg/dL (0.6-1.0) Estimated GFR (Cockcroft-Gault) 18.1 Glucose Level 330 mg/dL (70-99) Calcium Level 8.3 mg/dL (8.5-10.1) Microbiology 02/11/19 Blood Culture - Preliminary, Resulted NO GROWTH AFTER 2 DAYS 02/12/19 Anaerobic/Aerobic Culture, Resulted Pending 02/12/19 Anaerobic Culture Result 1 (FREDERICK), Resulted Pending 02/12/19 Aerobic Culture, Resulted Pending 02/12/19 Aerobic Culture Result 1 (FREDERICK), Resulted Pending 02/12/19 Gram Stain - Final, Resulted 02/12/19 Gram Stain Result 1 (FREDERICK) - Final, Resulted 02/12/19 Gram Stain Result 2 (FREDERICK) - Final, Resulted Medications Current Medications Ondansetron HCl (Zofran) 4 mg PRN Q6HRS PRN IV NAUSEA/VOMITING Last administered on 02/12/19at 06:11; Start 02/11/19 at 14:15 Acetaminophen/ Hydrocodone Bitart (Lortab 5/325) 1 tab PRN Q4HRS PRN PO MILD PAIN; Start 02/11/19 at 14:15 Acetaminophen (Tylenol) 650 mg PRN Q6HRS PRN PO Headaches, Temp > 101.5F; Start 02/11/19 at 14:15 Senna/Docusate Sodium (Senna Plus) 1 tab BID PO Last administered on 02/14/19at 08:35; Start 02/11/19 at 21:00 Lactulose (Lactulose) 20 gm PRN Q12HR PRN PO CONSTIPATION; Start 02/11/19 at 14 :15 Heparin Sodium (Porcine) (Heparin Sodium) 5,000 unit Q8HRS SQ ; Start 02/11/19 at 22:00; Stop 02/12/19 at 13:53; Status DC Piperacillin Sod/ Tazobactam Sod 3.375 gm/Sodium Chloride 50 ml @ 100 mls/hr Q6HRS IV Last administered on 02/13/19at 05:50; Start 02/11/19 at 18:00; Stop at 10:05; Status DC Micafungin Sodium 100 mg/Dextrose 100 ml @ 100 mls/hr Q24H IV Last administered on 02/13/19at 16:54; Start 02/11/19 at 16:00 Linezolid (Zyvox) 600 mg BID PO Last administered on 02/13/19at 20:44; Start at 21:00; Stop 02/14/19 at 08:18; Status DC Insulin Glargine (Lantus) 10 units QHS SQ Last administered on 02/13/19at 21:01 ; Start 02/11/19 at 21:00 Insulin Human Lispro (HumaLOG) 0-7 UNITS TIDWMEALS SQ Last administered on 02/13at 16:54; Start 02/12/19 at 08:00; Stop 02/13/19 at 21:29; Status DC Dextrose (Dextrose 50%-Water Syringe) 12.5 gm PRN Q15MIN PRN IV SEE COMMENTS; Start 02/11/19 at 19:45 Zolpidem Tartrate (Ambien) 5 mg PRN QHS PRN PO INSOMNIA Last administered on at 22:20; Start 02/11/19 at 21:15 Lidocaine HCl 48 ml/Sodium Bicarbonate 12 meq/Miscellaneous 60 ml @ 60 mls/hr 1X ONCE ID ; Start 02/13/19 at 06:00; Stop 02/13/19 at 06:59; Status DC Ondansetron HCl (Zofran) 4 mg PRN Q6HRS PRN IV NAUSEA/VOMITING; Start 02/13/19 at 07:00; Stop 02/13/19 at 16:31; Status DC Fentanyl Citrate (Fentanyl 2ml Vial) 25 mcg PRN Q5MIN PRN IV MILD PAIN; Start 02/13/19 at 07:00; Stop 02/14/19 at 06:59; Status DC Fentanyl Citrate (Fentanyl 2ml Vial) 50 mcg PRN Q5MIN PRN IV MODERATE TO SEVERE PAIN; Start 02/13/19 at 07:00; Stop 02/14/19 at 06:59; Status DC Morphine Sulfate (Morphine Sulfate) 1 mg PRN Q10MIN PRN IV SEVERE PAIN; Start 02/13/19 at 07:00; Stop 02/14/19 at 06:59; Status DC Ringer's Solution 1,000 ml @ 30 mls/hr Q24H IV Last administered on 02/13/19at 09:46; Start 02/13/19 at 07:00; Stop 02/13/19 at 18:59; Status DC Lidocaine HCl (Xylocaine-Mpf 1% 2ml Vial) 2 ml PRN 1X PRN ID PRIOR TO IV START ; Start 02/13/19 at 07:00; Stop 02/14/19 at 06:59; Status DC Hydromorphone HCl (Dilaudid) 0.5 mg PRN Q10MIN PRN IV SEV PAIN, Second choice; Start 02/13/19 at 07:00; Stop 02/14/19 at 06:59; Status DC Prochlorperazine Edisylate (Compazine) 5 mg PACU PRN PRN IV NAUSEA, MRX1 Last administered on 02/13/19at 11:38; Start 02/13/19 at 07:00; Stop 02/14/19 at 06:59 ; Status DC Phytonadione 5 mg/ Dextrose 50.5 ml @ 102 mls/hr 1X ONCE IV Last administered on 02/12/19at 15:30; Start 02/12/19 at 15:00; Stop 02/12/19 at 15:29 ; Status DC Propofol 20 ml @ As Directed STK-MED ONCE IV ; Start 02/13/19 at 09:42; Stop at 09:43; Status DC Dexamethasone Sodium Phosphate (Decadron) 20 mg STK-MED ONCE .ROUTE ; Start at 09:42; Stop 02/13/19 at 09:43; Status DC Lidocaine HCl (Lidocaine Pf 2% Vial) 5 ml STK-MED ONCE .ROUTE ; Start 02/13/19 at 09:42; Stop 02/13/19 at 09:43; Status DC Ondansetron HCl (Zofran) 4 mg STK-MED ONCE .ROUTE ; Start 02/13/19 at 09:42; Stop 02/13/19 at 09:43; Status DC Piperacillin Sod/ Tazobactam Sod 2.25 gm/Sodium Chloride 50 ml @ 100 mls/hr Q8HRS IV Last administered on 02/14/19at 06:10; Start 02/13/19 at 14:00; Stop at 08:18; Status DC Ephedrine Sulfate (ePHEDrine PF IN SALINE SYRINGE) 50 mg STK-MED ONCE IV ; Start 02/13/19 at 10:28; Stop 02/13/19 at 10:29; Status DC Vasopressin (Vasostrict) 20 unit STK-MED ONCE .ROUTE ; Start 02/13/19 at 10:31; Stop 02/13/19 at 10:32; Status DC Esmolol HCl (Brevibloc) 100 mg STK-MED ONCE IVP ; Start 02/13/19 at 10:44; Stop 02/13/19 at 10:45; Status DC Phenylephrine HCl (PHENYLEPHRINE in 0.9% NACL PF) 1 mg STK-MED ONCE IV ; Start 02/13/19 at 10:44; Stop 02/13/19 at 10:45; Status DC Ephedrine Sulfate (ePHEDrine PF IN SALINE SYRINGE) 50 mg STK-MED ONCE IV ; Start 02/13/19 at 10:44; Stop 02/13/19 at 10:45; Status DC Sevoflurane (Ultane) 30 ml STK-MED ONCE IH ; Start 02/13/19 at 11:00; Stop 02/13 at 11:01; Status DC Morphine Sulfate (Morphine Sulfate) 2 mg PRN Q2HR PRN IV PAIN Last administered on 02/13/19at 20:44; Start 02/13/19 at 11:30 Acetaminophen/ Hydrocodone Bitart (Lortab 5/325) 2 tab PRN Q4HRS PRN PO MODERATE - SEVERE PAIN; Start 02/13/19 at 11:30 Heparin Sodium/ Dextrose 500 ml @ 0 mls/hr CONT PRN IV SEE I/O RECORD Last administered on 02/13/19 13:31; Start 02/13/19 at 12:30 Info (Anti-Coagulation Monitoring By Pharmacy) 1 each PRN DAILY PRN MC SEE COMMENTS Last administered on 02/13/19at 15:45; Start 02/13/19 at 11:45 Metoprolol Tartrate (Lopressor Vial) 5 mg 1X ONCE IVP ; Start 02/13/19 at 12:15 ; Stop 02/13/19 at 12:18; Status DC Digoxin (Lanoxin) 250 mcg 1X ONCE IV Last administered on 02/13/19at 12:26; Start 02/13/19 at 12:30; Stop 02/13/19 at 12:31; Status DC Lactobacillus Rhamnosus (Culturelle) 1 cap BID PO Last administered on 08:35; Start 02/13/19 at 21:00 Aspirin (Ecotrin) 81 mg DAILY PO Last administered on 02/14/19 08:35; Start at 16:00 Metoprolol Succinate (Toprol Xl) 12.5 mg DAILY PO ; Start 02/13/19 at 16:00 Bumetanide (Bumex) 2 mg BID PO Last administered on 02/14/19 08:34; Start at 21:00 Atorvastatin Calcium (Lipitor) 80 mg QHS PO Last administered on 02/13/19at 20: 45; Start 02/13/19 at 21:00 Diltiazem HCl 125 mg/Dextrose 125 ml @ 5 mls/hr CONT PRN IV SEE I/O RECORD Last administered on 02/13/19at 16:55; Start 02/13/19 at 16:15 Insulin Human Lispro (HumaLOG) 0-7 UNITS QIDACHS SQ Last administered on at 08:37; Start 02/14/19 at 07:30 Insulin Human Lispro (HumaLOG) 9 units 1X ONCE SQ Last administered on at 22:04; Start 02/13/19 at 21:30; Stop 02/13/19 at 21:31; Status DC Amoxicillin/ Clavulanate Potassium (Augmentin 500/ 125mg) 1 tab BID PO Last administered on 02/14/19at 08:35; Start 02/14/19 at 09:00 Doxycycline Hyclate (Vibra-Tab) 100 mg BID PO Last administered on 02/14/19at 08 :34; Start 02/14/19 at 09:00 Active Scripts Active Reported Aspirin Ec (Aspirin) 81 Mg Tablet.dr 1 Tab PO DAILY Bumetanide 2 Mg Tablet 1 Tab PO BID Crestor (Rosuvastatin Calcium) 40 Mg Tablet 40 Mg PO HS Warfarin Sodium 4 Mg Tablet 4 Mg PO DAILY Metoprolol Succinate ( Xl ) (Metoprolol Succinate) 25 Mg Tab.er.24h 0.5 Tab PO DAILY Vitals/I & O Vital Sign - Last 24 Hours 02/13/19 02/13/19 02/13/19 02/13/19 11:13 11:13 11:30 11:45 Temp 98.3 98.3 Pulse 126 128 126 Resp 24 24 20 B/P (MAP) 88/68 93/45 119/60 Pulse Ox 100 100 100 O2 Delivery Simple Mask Mask Simple Mask Simple Mask O2 Flow Rate 6 8 6 6 02/13/19 02/13/19 02/13/19 02/13/19 12:00 12:15 12:26 13:00 Pulse 128 126 132 128 Resp 18 B/P (MAP) 111/59 102/60 103/53 116/62 Pulse Ox 94 96 96 O2 Delivery Room Air Nasal Cannula Nasal Cannula O2 Flow Rate 2 2 02/13/19 02/13/19 02/13/19 02/13/19 13:12 13:15 13:30 13:30 Temp 98.3 98.3 Pulse 110 116 128 Resp 22 B/P (MAP) 124/71 (88) 124/71 (88) 125/76 (92) Pulse Ox 99 O2 Delivery Nasal Cannula O2 Flow Rate 1.0 02/13/19 02/13/19 02/13/19 02/13/19 13:45 14:00 14:30 14:45 Pulse 135 135 135 120 B/P (MAP) 128/76 (93) 127/80 (96) 118/85 (96) 110/57 (74) 02/13/19 02/13/19 02/13/19 02/13/19 15:00 15:00 15:15 15:30 Temp 97.9 97.9 Pulse 117 141 138 126 Resp 20 B/P (MAP) 110/57 (74) 96/58 (71) 85/52 (63) 81/61 (68) Pulse Ox 93 02/13/19 02/13/19 02/13/19 02/13/19 15:45 16:00 16:15 16:30 Pulse 126 133 128 124 B/P (MAP) 93/61 (72) 91/45 (60) 124/69 (87) 119/76 (90) 02/13/19 02/13/19 02/13/19 02/13/19 16:45 17:45 18:45 19:00 Temp 98.3 98.3 Pulse 130 120 110 99 Resp 16 B/P (MAP) 114/61 (78) 104/52 (69) 127/72 (90) 121/71 (88) Pulse Ox 94 O2 Delivery Nasal Cannula O2 Flow Rate 2.0 02/13/19 02/13/19 02/13/19 02/13/19 19:45 20:00 21:30 22:45 Pulse 106 98 94 B/P (MAP) 140/74 (96) 122/59 (80) 104/54 (71) O2 Delivery Nasal Cannula O2 Flow Rate 2.0 02/13/19 02/13/19 02/14/19 02/14/19 23:00 23:45 00:45 01:45 Temp 98.1 98.1 Pulse 96 86 84 80 Resp 17 B/P (MAP) 114/51 (72) 123/68 (86) 108/49 (68) 119/67 (84) Pulse Ox 96 O2 Delivery Nasal Cannula O2 Flow Rate 2.0 02/14/19 02/14/19 02/14/19 02/14/19 02:30 02:45 03:45 05:43 Temp 97.6 97.6 Pulse 82 82 82 81 Resp 16 B/P (MAP) 119/67 (84) 111/57 (75) 120/75 (90) 116/73 (87) Pulse Ox 98 O2 Delivery Nasal Cannula O2 Flow Rate 2.0 02/14/19 02/14/19 07:13 08:00 Temp 97.4 97.4 Pulse 76 Resp 16 B/P (MAP) 119/55 (76) Pulse Ox 98 O2 Delivery Nasal Cannula Nasal Cannula O2 Flow Rate 2.0 2.0 Intake and Output 02/13/19 02/13/19 02/14/19 15:00 23:00 07:00 Intake Total 0 ml 930 ml 1100 ml Output Total 12 ml 200 ml 700 ml Balance -12 ml 730 ml 400 ml SHREYA FRIAS MD Feb 14, 2019 10:11
--- NOTE | 2019-02-14 11:20 | PDOC ---
CARDIO Progress Notes Date and Time Date of Service 02/14/19 Time of Evaluation 1005 Subjective Subjective: No Chest Pain, No shortness of breath, Other (bi LE pain) Vitals Vitals Vital Signs Date Time Temp Pulse Resp B/P (MAP) Pulse Ox O2 Delivery O2 Flow Rate FiO2 02/14/19 10:51 97.8 80 16 128/68 (88) 96 Nasal Cannula 2.0 97.8 Weight Weight [ ] Input and Output Intake and Output Intake and Output 02/14/19 07:00 Intake Total 2030 ml Output Total 912 ml Balance 1118 ml Intake Oral 1760 ml IV Total 270 ml Output Urine Total 900 ml Estimated Blood Loss 12 ml # Voids 3 Laboratory Labs Laboratory Tests Test 02/13/19 11:41 02/13/19 13:50 02/13/19 16:24 02/13/19 19:40 Glucose (Fingerstick) 137 mg/dL (70-99) 202 mg/dL (70-99) Activated Partial Thromboplast Time 38 SEC (24-38) Heparin Anti-Xa Act, Unfractionated 0.11 IU/mL (0.30-0.70) Test 02/13/19 20:07 02/14/19 03:40 02/14/19 06:57 Glucose (Fingerstick) 368 mg/dL (70-99) 284 mg/dL (70-99) White Blood Count 5.9 x10^3/uL (4.0-11.0) Red Blood Count 4.38 x10^6/uL (3.50-5.40) Hemoglobin 11.4 g/dL (12.0-15.5) Hematocrit 35.8 % (36.0-47.0) Mean Corpuscular Volume 82 fL (79-100) Mean Corpuscular Hemoglobin 26 pg (25-35) Mean Corpuscular Hemoglobin Concent 32 g/dL (31-37) Red Cell Distribution Width 21.0 % (11.5-14.5) Platelet Count 204 x10^3/uL (140-400) Neutrophils (%) (Auto) 85 % (31-73) Lymphocytes (%) (Auto) 10 % (24-48) Monocytes (%) (Auto) 5 % (0-9) Eosinophils (%) (Auto) 0 % (0-3) Basophils (%) (Auto) 0 % (0-3) Neutrophils # (Auto) 5.0 x10^3uL (1.8-7.7) Lymphocytes # (Auto) 0.6 x10^3/uL (1.0-4.8) Monocytes # (Auto) 0.3 x10^3/uL (0.0-1.1) Eosinophils # (Auto) 0.0 x10^3/uL (0.0-0.7) Basophils # (Auto) 0.0 x10^3/uL (0.0-0.2) Platelet Estimate Adequate (ADEQUATE) Polychromasia Slight Hypochromasia Slight Poikilocytosis Slight Anisocytosis Mod Tear Drop Cells Occ Ovalocytes Few Patito Cells Few Prothrombin Time 19.4 SEC (11.7-14.0) Prothromb Time International Ratio 1.7 (0.8-1.1) Heparin Anti-Xa Act, Unfractionated 0.22 IU/mL (0.30-0.70) Sodium Level 127 mmol/L (136-145) Potassium Level 5.2 mmol/L (3.5-5.1) Chloride Level 95 mmol/L (98-107) Carbon Dioxide Level 19 mmol/L (21-32) Anion Gap 13 (6-14) Blood Urea Nitrogen 49 mg/dL (7-20) Creatinine 2.6 mg/dL (0.6-1.0) Estimated GFR (Cockcroft-Gault) 18.1 Glucose Level 330 mg/dL (70-99) Calcium Level 8.3 mg/dL (8.5-10.1) Microbiology Micro Microbiology 02/11/19 Blood Culture - Preliminary, Resulted NO GROWTH AFTER 2 DAYS 02/12/19 Anaerobic/Aerobic Culture, Resulted Pending 02/12/19 Anaerobic Culture Result 1 (FREDREICK), Resulted Pending 02/12/19 Aerobic Culture, Resulted Pending 02/12/19 Aerobic Culture Result 1 (FREDERICK), Resulted Pending 02/12/19 Gram Stain - Final, Resulted 02/12/19 Gram Stain Result 1 (FREDERICK) - Final, Resulted 02/12/19 Gram Stain Result 2 (FREDERICK) - Final, Resulted Physical Exam HEENT: Neck Supple W Full Motion Chest: Symmetric LUNGS: Clear to Auscultation Heart: S1S2, murmurs (4/6 GIOVANNY murmur), irregularly irregular (tele AFIB with controlle rate) Abdomen: Soft N/T Extremities: Other (DRSG intact to bilateral LE. Trace bilateral LE edema ) Neurology: alert, oriented, follow commands Assessment Assessment 1. PAD/chronic wounds; s/p left 2nd and 3rd toe amputation and debridement of bilateral foot ulcers 2. Chronic AFIB; initially with RVR as metoprolol was held. Now well- controlled with Cardizem gtt. 3. Hypertension; controlled 4. Hyperlipidemia; statin 5. Chronic probable diastolic HF; compensated. Follows with [facility] 6. S/p AVR (bovine) at [facility] 7. Diabetes, II 8. SIMA on CKD; Cr ^ 2.6 today. 02/04 was 1.2 9. PPM; s/p explantation due to infection Recommendations Echo today to assess LV systolic function/valvular disease HR now well controlled on Cardizem gtt Resume metoprolol; increase to 25mg daily; may titrate off Cardizem following oral dose Warfarin for stroke prevention- Heparin until INR therapeutic Hold diuretics for now given rising Cr Supportive care Follow vascular recTERRY Good APRN Feb 14, 2019 11:20
[2019-02-14] MEDS: ONDANSETRON PF 4 MG/2 ML VIAL. IV PRN (11:26)
[2019-02-14] MEDS: HEPARIN 25,000UTS/500ML PREMIX 500 ML IV PRN (11:29)
--- NOTE | 2019-02-14 12:33 | PDOC ---
PROGRESS NOTES Subjective Subjective "I am nauseated. I feel like I'm going to throw up. I asked for something awhile back." Objective Objective Vascular Surgery - POD#1 Left 2nd and 3rd toe amputation, closed. Debridement of bilateral foot ulcers to subcutaneous tissue (right medial and lateral foot; left lateral foot.) General: Awake and alert. Complaining of nausea and dry-heaving. Examination performed at bedside. Turned trust operations assistant light and asked for antiemetics to be provided. Left foot: dressing removed. Toe amputation incision intact. No ecchymosis to incision line. No drainage. Superficial debridement to lateral aspect of foot. Bed of wound clean. No swelling. Right foot: dressing removed. Superficial areas of debridement to heel, medial and lateral foot clean. No drainage. No swelling. Assessment/Plan: 1. 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 Debridement of bilateral foot ulcers to subcutaneous tissue (right medial and lateral foot; left lateral foot.) - incision intact. Beds of debrided areas clean. - continue daily wound care and dressing changes. - continue non-weight bearing status for now. Progression of activity and weight-bearing status to be determined by Dr. Luke over the weekend. - complete course of oral antibiotic therapy. 2. Diabetes - FSBS's are elevated. RN will contact attending as over 300 right now even with insulin being given this a.m. 3. Status post AVR (bovine) - INR 1.7 today. Bridging with heparin. Echo to be performed today per CV. - ok to resume anticoagulation tomorrow from a vascular surgery perspective being mindful to NOT allow significant elevation to avoid hematoma in closed amputation of left toes. 4. Chronic atrial fibrillation with RVR. - rate has improved on Cardizem gtt. - per CV Vital Signs Date Time Temp Pulse Resp B/P (MAP) Pulse Ox O2 Delivery O2 Flow Rate FiO2 02/14/19 10:51 97.8 80 16 128/68 (88) 96 Nasal Cannula 2.0 97.8 Intake and Output 02/14/19 07:00 Intake Total 2030 ml Output Total 912 ml Balance 1118 ml Intake Oral 1760 ml IV Total 270 ml Output Urine Total 900 ml Estimated Blood Loss 12 ml # Voids 3 Comment Review of Relevant I have reviewed the following items hernandez (where applicable) has been applied. Labs Laboratory Tests Test 02/12/19 16:18 02/12/19 20:49 02/13/19 03:30 02/13/19 07:26 Glucose (Fingerstick) 141 mg/dL (70-99) 199 mg/dL (70-99) 110 mg/dL (70-99) White Blood Count 5.9 x10^3/uL (4.0-11.0) Red Blood Count 4.38 x10^6/uL (3.50-5.40) Hemoglobin 11.2 g/dL (12.0-15.5) Hematocrit 35.9 % (36.0-47.0) Mean Corpuscular Volume 82 fL (79-100) Mean Corpuscular Hemoglobin 26 pg (25-35) Mean Corpuscular Hemoglobin Concent 31 g/dL (31-37) Red Cell Distribution Width 20.6 % (11.5-14.5) Platelet Count 220 x10^3/uL (140-400) Neutrophils (%) (Auto) 64 % (31-73) Lymphocytes (%) (Auto) 19 % (24-48) Monocytes (%) (Auto) 10 % (0-9) Eosinophils (%) (Auto) 5 % (0-3) Basophils (%) (Auto) 2 % (0-3) Neutrophils # (Auto) 3.8 x10^3uL (1.8-7.7) Lymphocytes # (Auto) 1.1 x10^3/uL (1.0-4.8) Monocytes # (Auto) 0.6 x10^3/uL (0.0-1.1) Eosinophils # (Auto) 0.3 x10^3/uL (0.0-0.7) Basophils # (Auto) 0.1 x10^3/uL (0.0-0.2) Prothrombin Time 20.5 SEC (11.7-14.0) Prothromb Time International Ratio 1.8 (0.8-1.1) Sodium Level 134 mmol/L (136-145) Potassium Level 4.9 mmol/L (3.5-5.1) Chloride Level 99 mmol/L (98-107) Carbon Dioxide Level 22 mmol/L (21-32) Anion Gap 13 (6-14) Blood Urea Nitrogen 47 mg/dL (7-20) Creatinine 2.5 mg/dL (0.6-1.0) Estimated GFR (Cockcroft-Gault) 18.9 Glucose Level 133 mg/dL (70-99) Calcium Level 8.3 mg/dL (8.5-10.1) Test 02/13/19 11:41 02/13/19 13:50 02/13/19 16:24 02/13/19 19:40 Glucose (Fingerstick) 137 mg/dL (70-99) 202 mg/dL (70-99) Activated Partial Thromboplast Time 38 SEC (24-38) Heparin Anti-Xa Act, Unfractionated 0.11 IU/mL (0.30-0.70) Test 02/13/19 20:07 02/14/19 03:40 02/14/19 06:57 02/14/19 11:05 Glucose (Fingerstick) 368 mg/dL (70-99) 284 mg/dL (70-99) White Blood Count 5.9 x10^3/uL (4.0-11.0) Red Blood Count 4.38 x10^6/uL (3.50-5.40) Hemoglobin 11.4 g/dL (12.0-15.5) Hematocrit 35.8 % (36.0-47.0) Mean Corpuscular Volume 82 fL (79-100) Mean Corpuscular Hemoglobin 26 pg (25-35) Mean Corpuscular Hemoglobin Concent 32 g/dL (31-37) Red Cell Distribution Width 21.0 % (11.5-14.5) Platelet Count 204 x10^3/uL (140-400) Neutrophils (%) (Auto) 85 % (31-73) Lymphocytes (%) (Auto) 10 % (24-48) Monocytes (%) (Auto) 5 % (0-9) Eosinophils (%) (Auto) 0 % (0-3) Basophils (%) (Auto) 0 % (0-3) Neutrophils # (Auto) 5.0 x10^3uL (1.8-7.7) Lymphocytes # (Auto) 0.6 x10^3/uL (1.0-4.8) Monocytes # (Auto) 0.3 x10^3/uL (0.0-1.1) Eosinophils # (Auto) 0.0 x10^3/uL (0.0-0.7) Basophils # (Auto) 0.0 x10^3/uL (0.0-0.2) Platelet Estimate Adequate (ADEQUATE) Polychromasia Slight Hypochromasia Slight Poikilocytosis Slight Anisocytosis Mod Tear Drop Cells Occ Ovalocytes Few Niles Cells Few Prothrombin Time 19.4 SEC (11.7-14.0) Prothromb Time International Ratio 1.7 (0.8-1.1) Heparin Anti-Xa Act, Unfractionated 0.22 IU/mL (0.30-0.70) 0.29 IU/mL (0.30-0.70) Sodium Level 127 mmol/L (136-145) Potassium Level 5.2 mmol/L (3.5-5.1) Chloride Level 95 mmol/L (98-107) Carbon Dioxide Level 19 mmol/L (21-32) Anion Gap 13 (6-14) Blood Urea Nitrogen 49 mg/dL (7-20) Creatinine 2.6 mg/dL (0.6-1.0) Estimated GFR (Cockcroft-Gault) 18.1 Glucose Level 330 mg/dL (70-99) Calcium Level 8.3 mg/dL (8.5-10.1) Test 02/14/19 11:27 Glucose (Fingerstick) 328 mg/dL (70-99) Laboratory Tests Test 02/13/19 13:50 02/13/19 16:24 02/13/19 19:40 02/13/19 20:07 Activated Partial Thromboplast Time 38 SEC (24-38) Glucose (Fingerstick) 202 mg/dL (70-99) 368 mg/dL (70-99) Heparin Anti-Xa Act, Unfractionated 0.11 IU/mL (0.30-0.70) Test 02/14/19 03:40 02/14/19 06:57 02/14/19 11:05 02/14/19 11:27 White Blood Count 5.9 x10^3/uL (4.0-11.0) Red Blood Count 4.38 x10^6/uL (3.50-5.40) Hemoglobin 11.4 g/dL (12.0-15.5) Hematocrit 35.8 % (36.0-47.0) Mean Corpuscular Volume 82 fL (79-100) Mean Corpuscular Hemoglobin 26 pg (25-35) Mean Corpuscular Hemoglobin Concent 32 g/dL (31-37) Red Cell Distribution Width 21.0 % (11.5-14.5) Platelet Count 204 x10^3/uL (140-400) Neutrophils (%) (Auto) 85 % (31-73) Lymphocytes (%) (Auto) 10 % (24-48) Monocytes (%) (Auto) 5 % (0-9) Eosinophils (%) (Auto) 0 % (0-3) Basophils (%) (Auto) 0 % (0-3) Neutrophils # (Auto) 5.0 x10^3uL (1.8-7.7) Lymphocytes # (Auto) 0.6 x10^3/uL (1.0-4.8) Monocytes # (Auto) 0.3 x10^3/uL (0.0-1.1) Eosinophils # (Auto) 0.0 x10^3/uL (0.0-0.7) Basophils # (Auto) 0.0 x10^3/uL (0.0-0.2) Platelet Estimate Adequate (ADEQUATE) Polychromasia Slight Hypochromasia Slight Poikilocytosis Slight Anisocytosis Mod Tear Drop Cells Occ Ovalocytes Few Patito Cells Few Prothrombin Time 19.4 SEC (11.7-14.0) Prothromb Time International Ratio 1.7 (0.8-1.1) Heparin Anti-Xa Act, Unfractionated 0.22 IU/mL (0.30-0.70) 0.29 IU/mL (0.30-0.70) Sodium Level 127 mmol/L (136-145) Potassium Level 5.2 mmol/L (3.5-5.1) Chloride Level 95 mmol/L (98-107) Carbon Dioxide Level 19 mmol/L (21-32) Anion Gap 13 (6-14) Blood Urea Nitrogen 49 mg/dL (7-20) Creatinine 2.6 mg/dL (0.6-1.0) Estimated GFR (Cockcroft-Gault) 18.1 Glucose Level 330 mg/dL (70-99) Calcium Level 8.3 mg/dL (8.5-10.1) Glucose (Fingerstick) 284 mg/dL (70-99) 328 mg/dL (70-99) Microbiology 02/11/19 Blood Culture - Preliminary, Resulted NO GROWTH AFTER 2 DAYS 02/12/19 Anaerobic/Aerobic Culture, Resulted Pending 02/12/19 Anaerobic Culture Result 1 (FREDERICK), Resulted Pending 02/12/19 Aerobic Culture, Resulted Pending 02/12/19 Aerobic Culture Result 1 (FREDERICK), Resulted Pending 02/12/19 Gram Stain - Final, Resulted 02/12/19 Gram Stain Result 1 (FREDERICK) - Final, Resulted 02/12/19 Gram Stain Result 2 (FREDERICK) - Final, Resulted Medications Current Medications Ondansetron HCl (Zofran) 4 mg PRN Q6HRS PRN IV NAUSEA/VOMITING Last administered on 02/14/19at 11:26; Start 02/11/19 at 14:15 Acetaminophen/ Hydrocodone Bitart (Lortab 5/325) 1 tab PRN Q4HRS PRN PO MILD PAIN; Start 02/11/19 at 14:15 Acetaminophen (Tylenol) 650 mg PRN Q6HRS PRN PO Headaches, Temp > 101.5F; Start 02/11/19 at 14:15 Senna/Docusate Sodium (Senna Plus) 1 tab BID PO Last administered on 02/14/19at 08:35; Start 02/11/19 at 21:00 Lactulose (Lactulose) 20 gm PRN Q12HR PRN PO CONSTIPATION; Start 02/11/19 at 14 :15 Heparin Sodium (Porcine) (Heparin Sodium) 5,000 unit Q8HRS SQ ; Start 02/11/19 at 22:00; Stop 02/12/19 at 13:53; Status DC Piperacillin Sod/ Tazobactam Sod 3.375 gm/Sodium Chloride 50 ml @ 100 mls/hr Q6HRS IV Last administered on 02/13/19at 05:50; Start 02/11/19 at 18:00; Stop at 10:05; Status DC Micafungin Sodium 100 mg/Dextrose 100 ml @ 100 mls/hr Q24H IV Last administered on 02/13/19at 16:54; Start 02/11/19 at 16:00 Linezolid (Zyvox) 600 mg BID PO Last administered on 02/13/19at 20:44; Start at 21:00; Stop 02/14/19 at 08:18; Status DC Insulin Glargine (Lantus) 10 units QHS SQ Last administered on 02/13/19at 21:01 ; Start 02/11/19 at 21:00 Insulin Human Lispro (HumaLOG) 0-7 UNITS TIDWMEALS SQ Last administered on 02/13at 16:54; Start 02/12/19 at 08:00; Stop 02/13/19 at 21:29; Status DC Dextrose (Dextrose 50%-Water Syringe) 12.5 gm PRN Q15MIN PRN IV SEE COMMENTS; Start 02/11/19 at 19:45 Zolpidem Tartrate (Ambien) 5 mg PRN QHS PRN PO INSOMNIA Last administered on at 22:20; Start 02/11/19 at 21:15 Lidocaine HCl 48 ml/Sodium Bicarbonate 12 meq/Miscellaneous 60 ml @ 60 mls/hr 1X ONCE ID ; Start 02/13/19 at 06:00; Stop 02/13/19 at 06:59; Status DC Ondansetron HCl (Zofran) 4 mg PRN Q6HRS PRN IV NAUSEA/VOMITING; Start 02/13/19 at 07:00; Stop 02/13/19 at 16:31; Status DC Fentanyl Citrate (Fentanyl 2ml Vial) 25 mcg PRN Q5MIN PRN IV MILD PAIN; Start 02/13/19 at 07:00; Stop 02/14/19 at 06:59; Status DC Fentanyl Citrate (Fentanyl 2ml Vial) 50 mcg PRN Q5MIN PRN IV MODERATE TO SEVERE PAIN; Start 02/13/19 at 07:00; Stop 02/14/19 at 06:59; Status DC Morphine Sulfate (Morphine Sulfate) 1 mg PRN Q10MIN PRN IV SEVERE PAIN; Start 02/13/19 at 07:00; Stop 02/14/19 at 06:59; Status DC Ringer's Solution 1,000 ml @ 30 mls/hr Q24H IV Last administered on 02/13/19at 09:46; Start 02/13/19 at 07:00; Stop 02/13/19 at 18:59; Status DC Lidocaine HCl (Xylocaine-Mpf 1% 2ml Vial) 2 ml PRN 1X PRN ID PRIOR TO IV START ; Start 02/13/19 at 07:00; Stop 02/14/19 at 06:59; Status DC Hydromorphone HCl (Dilaudid) 0.5 mg PRN Q10MIN PRN IV SEV PAIN, Second choice; Start 02/13/19 at 07:00; Stop 02/14/19 at 06:59; Status DC Prochlorperazine Edisylate (Compazine) 5 mg PACU PRN PRN IV NAUSEA, MRX1 Last administered on 02/13/19at 11:38; Start 02/13/19 at 07:00; Stop 02/14/19 at 06:59 ; Status DC Phytonadione 5 mg/ Dextrose 50.5 ml @ 102 mls/hr 1X ONCE IV Last administered on 02/12/19at 15:30; Start 02/12/19 at 15:00; Stop 02/12/19 at 15:29 ; Status DC Propofol 20 ml @ As Directed STK-MED ONCE IV ; Start 02/13/19 at 09:42; Stop at 09:43; Status DC Dexamethasone Sodium Phosphate (Decadron) 20 mg STK-MED ONCE .ROUTE ; Start at 09:42; Stop 02/13/19 at 09:43; Status DC Lidocaine HCl (Lidocaine Pf 2% Vial) 5 ml STK-MED ONCE .ROUTE ; Start 02/13/19 at 09:42; Stop 02/13/19 at 09:43; Status DC Ondansetron HCl (Zofran) 4 mg STK-MED ONCE .ROUTE ; Start 02/13/19 at 09:42; Stop 02/13/19 at 09:43; Status DC Piperacillin Sod/ Tazobactam Sod 2.25 gm/Sodium Chloride 50 ml @ 100 mls/hr Q8HRS IV Last administered on 02/14/19at 06:10; Start 02/13/19 at 14:00; Stop at 08:18; Status DC Ephedrine Sulfate (ePHEDrine PF IN SALINE SYRINGE) 50 mg STK-MED ONCE IV ; Start 02/13/19 at 10:28; Stop 02/13/19 at 10:29; Status DC Vasopressin (Vasostrict) 20 unit STK-MED ONCE .ROUTE ; Start 02/13/19 at 10:31; Stop 02/13/19 at 10:32; Status DC Esmolol HCl (Brevibloc) 100 mg STK-MED ONCE IVP ; Start 02/13/19 at 10:44; Stop 02/13/19 at 10:45; Status DC Phenylephrine HCl (PHENYLEPHRINE in 0.9% NACL PF) 1 mg STK-MED ONCE IV ; Start 02/13/19 at 10:44; Stop 02/13/19 at 10:45; Status DC Ephedrine Sulfate (ePHEDrine PF IN SALINE SYRINGE) 50 mg STK-MED ONCE IV ; Start 02/13/19 at 10:44; Stop 02/13/19 at 10:45; Status DC Sevoflurane (Ultane) 30 ml STK-MED ONCE IH ; Start 02/13/19 at 11:00; Stop 02/13 at 11:01; Status DC Morphine Sulfate (Morphine Sulfate) 2 mg PRN Q2HR PRN IV PAIN Last administered on 02/13/19at 20:44; Start 02/13/19 at 11:30 Acetaminophen/ Hydrocodone Bitart (Lortab 5/325) 2 tab PRN Q4HRS PRN PO MODERATE - SEVERE PAIN; Start 02/13/19 at 11:30 Heparin Sodium/ Dextrose 500 ml @ 0 mls/hr CONT PRN IV SEE I/O RECORD Last administered on 02/14/19at 11:29; Start 02/13/19 at 12:30 Info (Anti-Coagulation Monitoring By Pharmacy) 1 each PRN DAILY PRN MC SEE COMMENTS Last administered on 02/13/19at 15:45; Start 02/13/19 at 11:45 Metoprolol Tartrate (Lopressor Vial) 5 mg 1X ONCE IVP ; Start 02/13/19 at 12:15 ; Stop 02/13/19 at 12:18; Status DC Digoxin (Lanoxin) 250 mcg 1X ONCE IV Last administered on 02/13/19at 12:26; Start 02/13/19 at 12:30; Stop 02/13/19 at 12:31; Status DC Lactobacillus Rhamnosus (Culturelle) 1 cap BID PO Last administered on at 08:35; Start 02/13/19 at 21:00 Aspirin (Ecotrin) 81 mg DAILY PO Last administered on 02/14/19 08:35; Start at 16:00 Metoprolol Succinate (Toprol Xl) 12.5 mg DAILY PO ; Start 02/13/19 at 16:00; Stop 02/14/19 at 10:24; Status DC Bumetanide (Bumex) 2 mg BID PO Last administered on 02/14/19 08:34; Start at 21:00 Atorvastatin Calcium (Lipitor) 80 mg QHS PO Last administered on 02/13/19 20: 45; Start 02/13/19 at 21:00 Diltiazem HCl 125 mg/Dextrose 125 ml @ 5 mls/hr CONT PRN IV SEE I/O RECORD Last administered on 02/13/19 16:55; Start 02/13/19 at 16:15; Stop 02/14/19 at 11:19; Status DC Insulin Human Lispro (HumaLOG) 0-7 UNITS QIDACHS SQ Last administered on 11:57; Start 02/14/19 at 07:30 Insulin Human Lispro (HumaLOG) 9 units 1X ONCE SQ Last administered on 22:04; Start 02/13/19 at 21:30; Stop 02/13/19 at 21:31; Status DC Amoxicillin/ Clavulanate Potassium (Augmentin 500/ 125mg) 1 tab BID PO Last administered on 02/14/19 08:35; Start 02/14/19 at 09:00 Doxycycline Hyclate (Vibra-Tab) 100 mg BID PO Last administered on 02/14/19 08 :34; Start 02/14/19 at 09:00 Metoprolol Succinate (Toprol Xl) 25 mg DAILY PO ; Start 02/14/19 at 11:00 Insulin Human Lispro (HumaLOG) 4 units TIDWMEALS SQ Last administered on 11:59; Start 02/14/19 at 12:00 Active Scripts Active Reported Aspirin Ec (Aspirin) 81 Mg Tablet. 1 Tab PO DAILY Bumetanide 2 Mg Tablet 1 Tab PO BID Crestor (Rosuvastatin Calcium) 40 Mg Tablet 40 Mg PO HS Warfarin Sodium 4 Mg Tablet 4 Mg PO DAILY Metoprolol Succinate ( Xl ) (Metoprolol Succinate) 25 Mg Tab.er.24h 0.5 Tab PO DAILY Vitals/I & O Vital Sign - Last 24 Hours 02/13/19 02/13/19 02/13/19 02/13/19 12:26 13:00 13:12 13:15 Temp 98.3 98.3 Pulse 132 128 110 116 Resp 18 22 B/P (MAP) 103/53 116/62 124/71 (88) 124/71 (88) Pulse Ox 96 99 O2 Delivery Nasal Cannula O2 Flow Rate 2 02/13/19 02/13/19 02/13/19 02/13/19 13:30 13:30 13:45 14:00 Pulse 128 135 135 B/P (MAP) 125/76 (92) 128/76 (93) 127/80 (96) O2 Delivery Nasal Cannula O2 Flow Rate 1.0 02/13/19 02/13/19 02/13/19 02/13/19 14:30 14:45 15:00 15:00 Temp 97.9 97.9 Pulse 135 120 117 141 Resp 20 B/P (MAP) 118/85 (96) 110/57 (74) 110/57 (74) 96/58 (71) Pulse Ox 93 02/13/19 02/13/19 02/13/19 02/13/19 15:15 15:30 15:45 16:00 Pulse 138 126 126 133 B/P (MAP) 85/52 (63) 81/61 (68) 93/61 (72) 91/45 (60) 02/13/19 02/13/19 02/13/19 02/13/19 16:15 16:30 16:45 17:45 Pulse 128 124 130 120 B/P (MAP) 124/69 (87) 119/76 (90) 114/61 (78) 104/52 (69) 02/13/19 02/13/19 02/13/19 02/13/19 18:45 19:00 19:45 20:00 Temp 98.3 98.3 Pulse 110 99 106 Resp 16 B/P (MAP) 127/72 (90) 121/71 (88) 140/74 (96) Pulse Ox 94 O2 Delivery Nasal Cannula Nasal Cannula O2 Flow Rate 2.0 2.0 02/13/19 02/13/19 02/13/1919 21:30 22:45 23:00 23:45 Temp 98.1 98.1 Pulse 98 94 96 86 Resp 17 B/P (MAP) 122/59 (80) 104/54 (71) 114/51 (72) 123/68 (86) Pulse Ox 96 O2 Delivery Nasal Cannula O2 Flow Rate 2.0 02/14/19 02/14/19 02/14/19 02/14/19 00:45 01:45 02:30 02:45 Temp 97.6 97.6 Pulse 84 80 82 82 Resp 16 B/P (MAP) 108/49 (68) 119/67 (84) 119/67 (84) 111/57 (75) Pulse Ox 98 O2 Delivery Nasal Cannula O2 Flow Rate 2.0 02/14/19 02/14/19 02/14/19 02/14/19 03:45 05:43 07:13 08:00 Temp 97.4 97.4 Pulse 82 81 76 Resp 16 B/P (MAP) 120/75 (90) 116/73 (87) 119/55 (76) Pulse Ox 98 O2 Delivery Nasal Cannula Nasal Cannula O2 Flow Rate 2.0 2.0 02/14/19 10:51 Temp 97.8 97.8 Pulse 80 Resp 16 B/P (MAP) 128/68 (88) Pulse Ox 96 O2 Delivery Nasal Cannula O2 Flow Rate 2.0 Intake and Output 02/13/19 02/13/19 02/14/19 15:00 23:00 07:00 Intake Total 0 ml 930 ml 1100 ml Output Total 12 ml 200 ml 700 ml Balance -12 ml 730 ml 400 ml ARIANA SOW SUPERVISOR [employer]ILD[employer]INTENANCE Feb 14, 2019 12:33
[2019-02-14] MEDS: ANTI-COAG MONITOR BY PHARMACY. MC PRN (13:22)
--- NOTE | 2019-02-14 15:57 | RAD ---
Portable chest, 02/14/2019: HISTORY: Congestive heart failure Comparison is made to a study from 02/06/2019. A cardiac valvular prosthesis is in place. The heart is enlarged. The pulmonary vascularity is prominent. There are continued increased interstitial markings with fissural thickening on the right most likely representing interstitial edema. Similar findings were present on the previous study. There is a new elongated left basilar opacity suggesting discoid atelectasis. No definite pleural fluid is seen on this AP view. IMPRESSION: 1. Congestive heart failure with ongoing interstitial edema. 2. Mild left basilar discoid atelectasis. Electronically signed by: Blake Robertson MD (02/14/2019 3:55 PM) [facility]
--- NOTE | 2019-02-14 16:52 | NUR ---
PT/OT request for orders when appropriate: Pt transferred to tele after surgery. PT/OT on hold per policy. Please re-order when appropriate. Thanks, Elie Hall PT
[2019-02-14] MEDS: MICAFUNGIN 100 MG in IV DEXTROSE 5% 100ML 100 ML IV SCH (17:21)
[2019-02-14] MEDS: HYDROcodone/APAP 5/325MG 1 TAB TABLET PO PRN (21:46)
[2019-02-14] MEDS: ATORVASTATIN CALCIUM 40 MG TABLET. PO SCH (21:47)
[2019-02-14] MEDS: INSULIN GLARGINE 300 UNITS/3 ML INSULN.PEN. SQ SCH (22:38)
[2019-02-15 02:45] VITALS: BP 138/92
[2019-02-15] MEDS ORDERED: HEPARIN for IV BOLUS 10,000 UNIT/10 ML VIAL. IV PRN (04:30)
[2019-02-15 05:31] LABS: CALCIUM 8.3 mg/dL (8.5-10.1); CREATININE 2.5 mg/dL (0.6-1.0); GFR 18.9; POTASSIUM 4.4 mmol/L (3.5-5.1)
[2019-02-15 05:56] LABS: BASO % 1 % (0-3); EOS % 0 % (0-3); HEMATOCRIT 33.9 % (36.0-47.0); HEMOGLOBIN 10.9 g/dL (12.0-15.5); LYMPH % 14 % (24-48); MEAN CORPUSCULAR HEMOGLOBIN 26 pg (25-35); MEAN CORPUSCULAR HGB CONC 32 g/dL (31-37); MEAN CORPUSCULAR VOLUME 81 fL (79-100); MONO # 0.5 x10^3/uL (0.0-1.1); MONO % 7 % (0-9); NEUT # 5.6 x10^3uL (1.8-7.7); NEUT % 78 % (31-73); PLATELET COUNT 219 x10^3/uL (140-400); RED BLOOD COUNT 4.16 x10^6/uL (3.50-5.40); RED CELL DISTRIBUTION WIDTH 20.7 % (11.5-14.5); WHITE BLOOD COUNT 7.2 x10^3/uL (4.0-11.0)
[2019-02-15 07:04] VITALS: BP 129/58
[2019-02-15] MEDS: METOPROLOL SUCC 24HR ER 25 MG TAB.ER.24H. PO SCH (07:35)
[2019-02-15] MEDS: LACTOBACILLUS RHAMNOSUS GG 1 CAPSULE. PO SCH ×2 (07:35→21:58)
[2019-02-15] MEDS: AMOXICILLIN/K CLAV 500/125MG TABLET. PO SCH ×2 (07:35→21:58)
[2019-02-15] MEDS: DOXYCYCLINE HYCLATE 100 MG TABLET PO SCH ×2 (07:35→21:58)
[2019-02-15] MEDS: SENNOSIDES/DOCUSATE 8.6/50MG TABLET. PO SCH ×2 (07:35→21:57)
[2019-02-15] MEDS: HEPARIN 25,000UTS/500ML PREMIX 500 ML IV PRN (07:39)
[2019-02-15] MEDS: ASPIRIN ENTERIC COATED 81 MG TABLET.DR. PO SCH (08:23)
[2019-02-15] MEDS: INSULIN LISPRO 300 UNITS/3 ML INSULN.PEN. SQ SCH ×6 (08:26→21:00)
--- NOTE | 2019-02-15 09:08 | PDOC ---
Infectious Disease Note Subjective Subjective Some nausea yesterday, but feeling better this morning Comfortable, denies pain Nonweightbearing No fevers/diarrhea/SOA ROS ROS per HPI otherwise neg Vital Sign Vital Signs Vital Signs Date Time Temp Pulse Resp B/P (MAP) Pulse Ox O2 Delivery O2 Flow Rate FiO2 02/15/19 07:48 Nasal Cannula 2.0 02/15/19 07:35 74 129/58 02/15/19 07:04 97.2 20 97.2 02/15/19 02:45 93 Physical Exam PHYSICAL EXAM GENERAL: Lying down, relaxed HEENT: Pupils equal, poor dentition. No thrush. NECK: Supple. LUNGS: Clear. HEART: S1, S2. irregular ABDOMEN: Soft. Bowel sounds present, nondistended. EXTREMITIES: No edema, no clubbing, no cyanosis. 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 Alert, responding appropriately PIVs ok Labs Lab Laboratory Tests Test 02/14/19 11:05 02/14/19 11:27 02/14/19 16:37 02/14/19 18:05 Heparin Anti-Xa Act, Unfractionated 0.29 IU/mL (0.30-0.70) 0.42 IU/mL (0.30-0.70) Glucose (Fingerstick) 328 mg/dL (70-99) 290 mg/dL (70-99) Test 02/14/19 20:18 02/15/19 04:40 02/15/19 07:09 Glucose (Fingerstick) 343 mg/dL (70-99) 188 mg/dL (70-99) White Blood Count 7.2 x10^3/uL (4.0-11.0) Red Blood Count 4.16 x10^6/uL (3.50-5.40) Hemoglobin 10.9 g/dL (12.0-15.5) Hematocrit 33.9 % (36.0-47.0) Mean Corpuscular Volume 81 fL (79-100) Mean Corpuscular Hemoglobin 26 pg (25-35) Mean Corpuscular Hemoglobin Concent 32 g/dL (31-37) Red Cell Distribution Width 20.7 % (11.5-14.5) Platelet Count 219 x10^3/uL (140-400) Neutrophils (%) (Auto) 78 % (31-73) Lymphocytes (%) (Auto) 14 % (24-48) Monocytes (%) (Auto) 7 % (0-9) Eosinophils (%) (Auto) 0 % (0-3) Basophils (%) (Auto) 1 % (0-3) Neutrophils # (Auto) 5.6 x10^3uL (1.8-7.7) Lymphocytes # (Auto) 1.0 x10^3/uL (1.0-4.8) Monocytes # (Auto) 0.5 x10^3/uL (0.0-1.1) Eosinophils # (Auto) 0.0 x10^3/uL (0.0-0.7) Basophils # (Auto) 0.0 x10^3/uL (0.0-0.2) Heparin Anti-Xa Act, Unfractionated 0.43 IU/mL (0.30-0.70) Sodium Level 132 mmol/L (136-145) Potassium Level 4.4 mmol/L (3.5-5.1) Chloride Level 98 mmol/L (98-107) Carbon Dioxide Level 22 mmol/L (21-32) Anion Gap 12 (6-14) Blood Urea Nitrogen 51 mg/dL (7-20) Creatinine 2.5 mg/dL (0.6-1.0) Estimated GFR (Cockcroft-Gault) 18.9 Glucose Level 245 mg/dL (70-99) Calcium Level 8.3 mg/dL (8.5-10.1) Micro Enterococcus faecalis 2+ AEROBIC RES 2 Preliminary Staphylococcus aureus Scant growth ANTIMICROBIAL SUSCEPTIBILITY Preliminary Comment S = Susceptible; I = Intermediate; R = Resistant P = Positive; N = Negative MICS are expressed in micrograms per mL Antibiotic RSLT#1 RSLT#2 RSLT#3 RSLT#4 Penicillin S =2 Vancomycin S =1 02/11. BLOOD CULTURE Preliminary NO GROWTH AFTER 3 DAYS 02/12. ANAEROBIC RES 1 Preliminary No anaerobes recovered in 48 hours. AEROBIC RES 1 Preliminary Streptococcus species Objective Assessment Left second toe osteomyelitis. Enterococcus PCNsen and Staph spp 02/12. s/p left 2nd and 3rd toe amputation, closed on 02/13/2019 Multiple bilateral foot ulcers s/p debridement to subcutaneous tissue, on 2018 Renal insufficiency/SIMA Onychomycosis. Diabetes with peripheral neuropathy. Tobacco user. Coronary artery disease, status post aortic valve replacement. (bovine). Warfarin on hold. currently on heparin gt Peripheral vascular disease. Chronic A. fib Plan Plan of Care Augmentin (02/14 - until 02/17). Restart Zyvox for now until MRSA r/o out Consider renal consult given increase in Cr since 02/04 Micafungin, will wean off now Previously on Zyvox and Zosyn Steroids (02/13) Monitor labs and cultures. Awaiting echo report Wound care per Vascular. Attending Co-Sign Attending Co-Sign The patient was seen and interviewed as well as examined at the bedside. The chart was reviewed. The case was discussed. Agree with the plan of care. JOHN IZQUIERDO APRN Feb 15, 2019 09:08 IKE CM MD Feb 15, 2019 13:35
[2019-02-15 11:10] VITALS: BP 138/69
--- NOTE | 2019-02-15 12:24 | PDOC ---
CARDIOLOGY PROGRESS NOTE SUBJECTIVE: 73 yo female with PMHx of PAD/chronic wound s/p left 2nd and 3rd toe amputation for b/l foot ulcers, chronic Afib, HTN, Hyperlipidemia, Aortic stenosis sp AVR, chronic HF. Overnight, pt reports no chest pain, SOB, palpitation. OBJECTIVE: Vital SIgns: Vital Signs Date Time Temp Pulse Resp B/P (MAP) Pulse Ox O2 Delivery O2 Flow Rate FiO2 02/15/19 11:10 63 138/69 (92) Room Air 02/15/19 07:48 2.0 02/15/19 07:04 97.2 20 97.2 02/15/19 02:45 93 I & O -275 ml Objective: General: A&O x 3, appear as stated age Lung: CTAB Heart: irregularly irregular. Abs: soft, non tender, no guarding, rigidity. Pulse: +2 RA pulses LE: +2 pitting edema b/l CURRENT MEDICATIONS: Hep gtt ASA 81mg daily Atorvastatin 80mg daily metoprolol 25 XL daily DIAGNOSTIC TESTING: CXR (02/14/2019): interstitial edema due to congested HF, mild basilar atelectasis Cr 2.5 Hgb 10.9 Plts stable ASSESSMENT: 1. PAD- s/p toe amputation and debridement 2. Chronic AFib, 3. HTN 4. Hyperlipidemia -on station 5. CHF 6. Aortic stenosis -sp AVR (Bioprosthetic) *Echo in 11/2018 at - EF 25%. Severe RV/LV dysfunction. Severe . Severe rheumatic mitral valve disease. *Cath in 2013 at - Three vessel non-obstructive diseas.e *Stress in 12/2017 - No significant ischemia, E f29%. PLAN: 1. She has severe mixed ischemic and non-ischemic CMP and severe valvular heart disease. -Would hold on further diuresis given SIMA (Unclear if this is related to a low flow state. May need a RHC to determine if milrinone would be beneficial) 2. Continue hep gtt for now. 3. continue low dose toprol for HR control. 4. Given her severe valvular disease, debility and current infection, she would not qualify for any treatments at this time but may consider on an outpt basis through [facility] HF clinic. 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 AAYUSH MARKS MD Feb 15, 2019 12:24
--- NOTE | 2019-02-15 14:23 | CARD ---
MR#: [id number] Date of Study: 02/14/2019 Ordering Physician: MONIKA CASTILLO, Referring Physician: SHREYA FRIAS, Tech: Chrystal Archer APPROVED REPORT EXAM: Two-dimensional and M-mode echocardiogram with Doppler and color Doppler. Other Information Quality : GoodHR: 73bpm INDICATION COPD Surgery/Intervention Status/Post Aortic Valve Replacement: Bioprosthetic Type: Bovine RISK FACTORS Diabetes Smoking 2D DIMENSIONS RVDd3.1 (2.9-3.5cm)Left Atrium(2D)4.8 (1.6-4.0cm) IVSd1.2 (0.7-1.1cm)Aortic Root(2D)2.2 (2.0-3.7cm) LVDd4.5 (3.9-5.9cm)LVOT Diameter1.9 (1.8-2.4cm) PWd1.2 (0.7-1.1cm)LVDs3.6 (2.5-4.0cm) FS (%) 20.5 %SV38.6 ml LVEF(%)41.9 (>50%) Aortic Valve AoV Peak Gerardo.235.1cm/sAoV VTI45.4cm AO Peak GR.22.1mmHgLVOT VTI 13.40cm AO Mean GR.11mmHgAI P 1/2 Ygtg437ob Mitral Valve MV E Wlowssvc501.1cm/sMV DECEL BVIC992qg MV A Iwpckvjy921.6cm/sE/A Ratio1.6 TDI Lateral E' P. V7.34cm/sMedial E' P. V4.52cm/s E/Lateral E'22.5E/Medial E'36.5 Tricuspid Valve TR P. Fhyondjc578nh/sRAP AYORFBDJ4cvWv TR Peak Gr.22dtTpTBNL04mnHi Pulmonary Vein S1 Ugkfmzne31.8cm/sS2 Gjiwcepq04.24cm/s D2 Epsebvkz30.2cm/s LEFT VENTRICLE The Left Ventricle is moderately dilated. There is mild concentric left ventricular hypertrophy. The systolic function is severely impaired. The Ejection Fraction is 20%. There is severe global hypokine sis of the left ventricle. Tissue Doppler imaging reveals severe left ventricular diastolic dysfuncti on. RIGHT VENTRICLE The right ventricle is moderately dilated. There is normal right ventricular wall thickness. RV Systo lic function is moderately to severely reduced. ATRIA The left atrium is severely dilated. The right atrium is severely dilated. The interatrial septum is intact with no evidence for an atrial septal defect or patent foramen ovale as noted on 2-D or Dopple r imaging. AORTIC VALVE Doppler and Color Flow revealed moderate aortic regurgitation. There is no significant aortic valvula r stenosis. Probable bovine bioprosthetic AV - Appears heavily calcified with restricted leaflet brandi on and moderate regurgitation noted. MITRAL VALVE Mitral annular calcification is severe. Valve is not well visualized. There is mild mitral valve sten osis. Doppler and Color-flow revealed trace mitral regurgitation. TRICUSPID VALVE The tricuspid valve is normal in structure and function. Doppler and Color Flow revealed moderate tri cuspid regurgitation with an estimated PAP of 34 mmHg. There is no tricuspid valve stenosis. PULMONIC VALVE Doppler and Color Flow revealed trace to mild pulmonic valvular regurgitation. There is no pulmonic v alvular stenosis. GREAT VESSELS The aortic root is normal in size. The IVC is normal in size and collapses >50% with inspiration. PERICARDIAL EFFUSION There is no evidence of significant pericardial effusion. Critical Notification Critical Value: No <Conclusion> The systolic function is severely impaired. The Ejection Fraction is 20%. There is severe global hypokinesis of the left ventricle. RV Systolic function is moderately to severely reduced. Probable bovine bioprosthetic AV - Appears heavily calcified with restricted leaflet motion and moder ate regurgitation noted. Doppler and Color Flow revealed moderate tricuspid regurgitation with an estimated PAP of 34 mmHg. Severe mitral valve calcification noted. Signed by : Mirza Coy, Electronically Approved : 02/15/2019 14:23:26
--- NOTE | 2019-02-15 14:39 | PDOC ---
PROGRESS NOTES Chief Complaint Chief Complaint Left second toe osteomyelitis - Multiple bilateral foot ulcers. 02/13/2019 underwent. Left 2nd and 3rd toe amputation, closed. Debridement of bilateral foot ulcers to subcutaneous tissue Renal insufficiency Onychomycosis Peripheral vascular disease LE cellulitis - RLE worse than left, empiric coverage for strep and staph, consult ID, will obtain cultures first. Follow cultures and CBC DM - she does not know her meds, will place on basal bolus plus regimen dCHF - she feels in mild exacerbation, prn IV lasix PAD - confirmed at [facility] on 12/07/18, obtain records s/p AVR - looks aortic on recent CXR and is bovine per [facility] records, INR daily, hold coumadin, will bridge on heparin when she is subtherapeutic in prep for surgery. Confirm valve with echo. Restart warfarin Recent pacemaker removal - will obtain blood cultures Multiple foot ulcers - wound care following Left second toe osteomyelitis. mri Findings consistent with osteomyelitis of the distal phalanx of the second toe. s/p amputation Onychomycosis Diabetes with peripheral neuropathy Tobacco user FEN - ADA diet PPX - heparin GTT, can convert back to warfarin today, ok with vascular surgery FULL CODE Inpatient for bilateral cellulitis and diabetic foot ulcers at least 2 midnights History of Present Illness History of Present Illness Admitted directly from wound clinic for bilateral LE wounds worsening, went to OR on 02/13/19 had left 2nd and 3rd digit amputation 02/13 significant post-op complication of a-fib rvr [facility] and heparin GTT on, at HR 79. She has some pain in both feet currently, feels weak. Glucose elevated. No SOB or CPR Plan: Change back to home BB dosing today Cont heparin GTT for afib, back on coumadin. Ok to d/c heparin when INR greater than 1.8 iv Zosyn, Zyvox stopped, cont micafungin per ID Post-op pain control Still needs her [facility] records, have not arrived yet Vitals Vitals Vital Signs Date Time Temp Pulse Resp B/P (MAP) Pulse Ox O2 Delivery O2 Flow Rate FiO2 02/15/19 11:10 63 138/69 (92) 94 Room Air 02/15/19 07:48 2.0 02/15/19 07:04 97.2 20 97.2 Physical Exam Physical Exam GENERAL: Lying down, relaxed HEENT: Pupils equal, poor dentition. No thrush. NECK: Supple. LUNGS: Clear. HEART: S1, S2. irregular ABDOMEN: Soft. Bowel sounds present, nondistended. EXTREMITIES: No edema, no clubbing, no cyanosis. 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 Alert, responding appropriately PIVs ok General: Alert, Oriented X3, Cooperative, No acute distress Heart: Other (IRRR; tele AFIB with RVR) Lungs: Clear Abdomen: Soft, No tenderness Extremities: Other (2 ulcers right foot, decreased pulses. Callous on 2nd left toe and 5th MTP post op dressing dry) Skin: Other (DRSG intact to bilaterl feet) Labs LABS Laboratory Tests Test 02/14/19 16:37 02/14/19 18:05 02/14/19 20:18 02/15/19 04:40 Glucose (Fingerstick) 290 mg/dL (70-99) 343 mg/dL (70-99) Heparin Anti-Xa Act, Unfractionated 0.42 IU/mL (0.30-0.70) 0.43 IU/mL (0.30-0.70) White Blood Count 7.2 x10^3/uL (4.0-11.0) Red Blood Count 4.16 x10^6/uL (3.50-5.40) Hemoglobin 10.9 g/dL (12.0-15.5) Hematocrit 33.9 % (36.0-47.0) Mean Corpuscular Volume 81 fL (79-100) Mean Corpuscular Hemoglobin 26 pg (25-35) Mean Corpuscular Hemoglobin Concent 32 g/dL (31-37) Red Cell Distribution Width 20.7 % (11.5-14.5) Platelet Count 219 x10^3/uL (140-400) Neutrophils (%) (Auto) 78 % (31-73) Lymphocytes (%) (Auto) 14 % (24-48) Monocytes (%) (Auto) 7 % (0-9) Eosinophils (%) (Auto) 0 % (0-3) Basophils (%) (Auto) 1 % (0-3) Neutrophils # (Auto) 5.6 x10^3uL (1.8-7.7) Lymphocytes # (Auto) 1.0 x10^3/uL (1.0-4.8) Monocytes # (Auto) 0.5 x10^3/uL (0.0-1.1) Eosinophils # (Auto) 0.0 x10^3/uL (0.0-0.7) Basophils # (Auto) 0.0 x10^3/uL (0.0-0.2) Sodium Level 132 mmol/L (136-145) Potassium Level 4.4 mmol/L (3.5-5.1) Chloride Level 98 mmol/L (98-107) Carbon Dioxide Level 22 mmol/L (21-32) Anion Gap 12 (6-14) Blood Urea Nitrogen 51 mg/dL (7-20) Creatinine 2.5 mg/dL (0.6-1.0) Estimated GFR (Cockcroft-Gault) 18.9 Glucose Level 245 mg/dL (70-99) Calcium Level 8.3 mg/dL (8.5-10.1) Test 02/15/19 07:09 02/15/19 10:35 02/15/19 11:16 Glucose (Fingerstick) 188 mg/dL (70-99) 152 mg/dL (70-99) Heparin Anti-Xa Act, Unfractionated 0.42 IU/mL (0.30-0.70) Comment Review of Relevant I have reviewed the following items hernandez (where applicable) has been applied. Labs Laboratory Tests Test 02/13/19 16:24 02/13/19 19:40 02/13/19 20:07 02/14/19 03:40 Glucose (Fingerstick) 202 mg/dL (70-99) 368 mg/dL (70-99) Heparin Anti-Xa Act, Unfractionated 0.11 IU/mL (0.30-0.70) 0.22 IU/mL (0.30-0.70) White Blood Count 5.9 x10^3/uL (4.0-11.0) Red Blood Count 4.38 x10^6/uL (3.50-5.40) Hemoglobin 11.4 g/dL (12.0-15.5) Hematocrit 35.8 % (36.0-47.0) Mean Corpuscular Volume 82 fL (79-100) Mean Corpuscular Hemoglobin 26 pg (25-35) Mean Corpuscular Hemoglobin Concent 32 g/dL (31-37) Red Cell Distribution Width 21.0 % (11.5-14.5) Platelet Count 204 x10^3/uL (140-400) Neutrophils (%) (Auto) 85 % (31-73) Lymphocytes (%) (Auto) 10 % (24-48) Monocytes (%) (Auto) 5 % (0-9) Eosinophils (%) (Auto) 0 % (0-3) Basophils (%) (Auto) 0 % (0-3) Neutrophils # (Auto) 5.0 x10^3uL (1.8-7.7) Lymphocytes # (Auto) 0.6 x10^3/uL (1.0-4.8) Monocytes # (Auto) 0.3 x10^3/uL (0.0-1.1) Eosinophils # (Auto) 0.0 x10^3/uL (0.0-0.7) Basophils # (Auto) 0.0 x10^3/uL (0.0-0.2) Platelet Estimate Adequate (ADEQUATE) Polychromasia Slight Hypochromasia Slight Poikilocytosis Slight Anisocytosis Mod Tear Drop Cells Occ Ovalocytes Few Patito Cells Few Prothrombin Time 19.4 SEC (11.7-14.0) Prothromb Time International Ratio 1.7 (0.8-1.1) Sodium Level 127 mmol/L (136-145) Potassium Level 5.2 mmol/L (3.5-5.1) Chloride Level 95 mmol/L (98-107) Carbon Dioxide Level 19 mmol/L (21-32) Anion Gap 13 (6-14) Blood Urea Nitrogen 49 mg/dL (7-20) Creatinine 2.6 mg/dL (0.6-1.0) Estimated GFR (Cockcroft-Gault) 18.1 Glucose Level 330 mg/dL (70-99) Calcium Level 8.3 mg/dL (8.5-10.1) Test 02/14/19 06:57 02/14/19 11:05 02/14/19 11:27 02/14/19 16:37 Glucose (Fingerstick) 284 mg/dL (70-99) 328 mg/dL (70-99) 290 mg/dL (70-99) Heparin Anti-Xa Act, Unfractionated 0.29 IU/mL (0.30-0.70) Test 02/14/19 18:05 02/14/19 20:18 02/15/19 04:40 02/15/19 07:09 Heparin Anti-Xa Act, Unfractionated 0.42 IU/mL (0.30-0.70) 0.43 IU/mL (0.30-0.70) Glucose (Fingerstick) 343 mg/dL (70-99) 188 mg/dL (70-99) White Blood Count 7.2 x10^3/uL (4.0-11.0) Red Blood Count 4.16 x10^6/uL (3.50-5.40) Hemoglobin 10.9 g/dL (12.0-15.5) Hematocrit 33.9 % (36.0-47.0) Mean Corpuscular Volume 81 fL (79-100) Mean Corpuscular Hemoglobin 26 pg (25-35) Mean Corpuscular Hemoglobin Concent 32 g/dL (31-37) Red Cell Distribution Width 20.7 % (11.5-14.5) Platelet Count 219 x10^3/uL (140-400) Neutrophils (%) (Auto) 78 % (31-73) Lymphocytes (%) (Auto) 14 % (24-48) Monocytes (%) (Auto) 7 % (0-9) Eosinophils (%) (Auto) 0 % (0-3) Basophils (%) (Auto) 1 % (0-3) Neutrophils # (Auto) 5.6 x10^3uL (1.8-7.7) Lymphocytes # (Auto) 1.0 x10^3/uL (1.0-4.8) Monocytes # (Auto) 0.5 x10^3/uL (0.0-1.1) Eosinophils # (Auto) 0.0 x10^3/uL (0.0-0.7) Basophils # (Auto) 0.0 x10^3/uL (0.0-0.2) Sodium Level 132 mmol/L (136-145) Potassium Level 4.4 mmol/L (3.5-5.1) Chloride Level 98 mmol/L (98-107) Carbon Dioxide Level 22 mmol/L (21-32) Anion Gap 12 (6-14) Blood Urea Nitrogen 51 mg/dL (7-20) Creatinine 2.5 mg/dL (0.6-1.0) Estimated GFR (Cockcroft-Gault) 18.9 Glucose Level 245 mg/dL (70-99) Calcium Level 8.3 mg/dL (8.5-10.1) Test 02/15/19 10:35 02/15/19 11:16 Heparin Anti-Xa Act, Unfractionated 0.42 IU/mL (0.30-0.70) Glucose (Fingerstick) 152 mg/dL (70-99) Laboratory Tests Test 02/14/19 16:37 02/14/19 18:05 02/14/19 20:18 02/15/19 04:40 Glucose (Fingerstick) 290 mg/dL (70-99) 343 mg/dL (70-99) Heparin Anti-Xa Act, Unfractionated 0.42 IU/mL (0.30-0.70) 0.43 IU/mL (0.30-0.70) White Blood Count 7.2 x10^3/uL (4.0-11.0) Red Blood Count 4.16 x10^6/uL (3.50-5.40) Hemoglobin 10.9 g/dL (12.0-15.5) Hematocrit 33.9 % (36.0-47.0) Mean Corpuscular Volume 81 fL (79-100) Mean Corpuscular Hemoglobin 26 pg (25-35) Mean Corpuscular Hemoglobin Concent 32 g/dL (31-37) Red Cell Distribution Width 20.7 % (11.5-14.5) Platelet Count 219 x10^3/uL (140-400) Neutrophils (%) (Auto) 78 % (31-73) Lymphocytes (%) (Auto) 14 % (24-48) Monocytes (%) (Auto) 7 % (0-9) Eosinophils (%) (Auto) 0 % (0-3) Basophils (%) (Auto) 1 % (0-3) Neutrophils # (Auto) 5.6 x10^3uL (1.8-7.7) Lymphocytes # (Auto) 1.0 x10^3/uL (1.0-4.8) Monocytes # (Auto) 0.5 x10^3/uL (0.0-1.1) Eosinophils # (Auto) 0.0 x10^3/uL (0.0-0.7) Basophils # (Auto) 0.0 x10^3/uL (0.0-0.2) Sodium Level 132 mmol/L (136-145) Potassium Level 4.4 mmol/L (3.5-5.1) Chloride Level 98 mmol/L (98-107) Carbon Dioxide Level 22 mmol/L (21-32) Anion Gap 12 (6-14) Blood Urea Nitrogen 51 mg/dL (7-20) Creatinine 2.5 mg/dL (0.6-1.0) Estimated GFR (Cockcroft-Gault) 18.9 Glucose Level 245 mg/dL (70-99) Calcium Level 8.3 mg/dL (8.5-10.1) Test 02/15/19 07:09 02/15/19 10:35 02/15/19 11:16 Glucose (Fingerstick) 188 mg/dL (70-99) 152 mg/dL (70-99) Heparin Anti-Xa Act, Unfractionated 0.42 IU/mL (0.30-0.70) Microbiology 02/11/19 Blood Culture - Preliminary, Resulted NO GROWTH AFTER 3 DAYS 02/12/19 Anaerobic/Aerobic Culture - Preliminary, Resulted 02/12/19 Anaerobic Culture Result 1 (FREDERICK) - Preliminary, Resulted 02/12/19 Aerobic Culture - Preliminary, Resulted 02/12/19 Aerobic Culture Result 1 (FREDERICK) - Preliminary, Resulted 02/12/19 Aerobic Culture Result 2 (FREDERICK) - Preliminary, Resulted 02/12/19 Antimicrobic Susceptibility - Preliminary, Resulted 02/12/19 Gram Stain - Final, Resulted 02/12/19 Gram Stain Result 1 (FREDERICK) - Final, Resulted 02/12/19 Gram Stain Result 2 (FREDERICK) - Final, Resulted Medications Current Medications Ondansetron HCl (Zofran) 4 mg PRN Q6HRS PRN IV NAUSEA/VOMITING Last administered on 02/14/19at 11:26; Start 02/11/19 at 14:15 Acetaminophen/ Hydrocodone Bitart (Lortab 5/325) 1 tab PRN Q4HRS PRN PO MILD PAIN Last administered on 02/14/19at 21:46; Start 02/11/19 at 14:15 Acetaminophen (Tylenol) 650 mg PRN Q6HRS PRN PO Headaches, Temp > 101.5F; Start 02/11/19 at 14:15 Senna/Docusate Sodium (Senna Plus) 1 tab BID PO Last administered on 02/15/19at 07:35; Start 02/11/19 at 21:00 Lactulose (Lactulose) 20 gm PRN Q12HR PRN PO CONSTIPATION; Start 02/11/19 at 14 :15 Heparin Sodium (Porcine) (Heparin Sodium) 5,000 unit Q8HRS SQ ; Start 02/11/19 at 22:00; Stop 02/12/19 at 13:53; Status DC Piperacillin Sod/ Tazobactam Sod 3.375 gm/Sodium Chloride 50 ml @ 100 mls/hr Q6HRS IV Last administered on 02/13/19at 05:50; Start 02/11/19 at 18:00; Stop at 10:05; Status DC Micafungin Sodium 100 mg/Dextrose 100 ml @ 100 mls/hr Q24H IV Last administered on 02/14/19at 17:21; Start 02/11/19 at 16:00; Stop 02/15/19 at 13:33 ; Status DC Linezolid (Zyvox) 600 mg BID PO Last administered on 02/13/19at 20:44; Start at 21:00; Stop 02/14/19 at 08:18; Status DC Insulin Glargine (Lantus) 10 units QHS SQ Last administered on 02/14/19at 22:38 ; Start 02/11/19 at 21:00 Insulin Human Lispro (HumaLOG) 0-7 UNITS TIDWMEALS SQ Last administered on 02/13at 16:54; Start 02/12/19 at 08:00; Stop 02/13/19 at 21:29; Status DC Dextrose (Dextrose 50%-Water Syringe) 12.5 gm PRN Q15MIN PRN IV SEE COMMENTS; Start 02/11/19 at 19:45 Zolpidem Tartrate (Ambien) 5 mg PRN QHS PRN PO INSOMNIA Last administered on at 22:20; Start 02/11/19 at 21:15 Lidocaine HCl 48 ml/Sodium Bicarbonate 12 meq/Miscellaneous 60 ml @ 60 mls/hr 1X ONCE ID ; Start 02/13/19 at 06:00; Stop 02/13/19 at 06:59; Status DC Ondansetron HCl (Zofran) 4 mg PRN Q6HRS PRN IV NAUSEA/VOMITING; Start 02/13/19 at 07:00; Stop 02/13/19 at 16:31; Status DC Fentanyl Citrate (Fentanyl 2ml Vial) 25 mcg PRN Q5MIN PRN IV MILD PAIN; Start 02/13/19 at 07:00; Stop 02/14/19 at 06:59; Status DC Fentanyl Citrate (Fentanyl 2ml Vial) 50 mcg PRN Q5MIN PRN IV MODERATE TO SEVERE PAIN; Start 02/13/19 at 07:00; Stop 02/14/19 at 06:59; Status DC Morphine Sulfate (Morphine Sulfate) 1 mg PRN Q10MIN PRN IV SEVERE PAIN; Start 02/13/19 at 07:00; Stop 02/14/19 at 06:59; Status DC Ringer's Solution 1,000 ml @ 30 mls/hr Q24H IV Last administered on 02/13/19at 09:46; Start 02/13/19 at 07:00; Stop 02/13/19 at 18:59; Status DC Lidocaine HCl (Xylocaine-Mpf 1% 2ml Vial) 2 ml PRN 1X PRN ID PRIOR TO IV START ; Start 02/13/19 at 07:00; Stop 02/14/19 at 06:59; Status DC Hydromorphone HCl (Dilaudid) 0.5 mg PRN Q10MIN PRN IV SEV PAIN, Second choice; Start 02/13/19 at 07:00; Stop 02/14/19 at 06:59; Status DC Prochlorperazine Edisylate (Compazine) 5 mg PACU PRN PRN IV NAUSEA, MRX1 Last administered on 02/13/19at 11:38; Start 02/13/19 at 07:00; Stop 02/14/19 at 06:59 ; Status DC Phytonadione 5 mg/ Dextrose 50.5 ml @ 102 mls/hr 1X ONCE IV Last administered on 02/12/19at 15:30; Start 02/12/19 at 15:00; Stop 02/12/19 at 15:29 ; Status DC Propofol 20 ml @ As Directed STK-MED ONCE IV ; Start 02/13/19 at 09:42; Stop at 09:43; Status DC Dexamethasone Sodium Phosphate (Decadron) 20 mg STK-MED ONCE .ROUTE ; Start at 09:42; Stop 02/13/19 at 09:43; Status DC Lidocaine HCl (Lidocaine Pf 2% Vial) 5 ml STK-MED ONCE .ROUTE ; Start 02/13/19 at 09:42; Stop 02/13/19 at 09:43; Status DC Ondansetron HCl (Zofran) 4 mg STK-MED ONCE .ROUTE ; Start 02/13/19 at 09:42; Stop 02/13/19 at 09:43; Status DC Piperacillin Sod/ Tazobactam Sod 2.25 gm/Sodium Chloride 50 ml @ 100 mls/hr Q8HRS IV Last administered on 02/14/19at 06:10; Start 02/13/19 at 14:00; Stop at 08:18; Status DC Ephedrine Sulfate (ePHEDrine PF IN SALINE SYRINGE) 50 mg STK-MED ONCE IV ; Start 02/13/19 at 10:28; Stop 02/13/19 at 10:29; Status DC Vasopressin (Vasostrict) 20 unit STK-MED ONCE .ROUTE ; Start 02/13/19 at 10:31; Stop 02/13/19 at 10:32; Status DC Esmolol HCl (Brevibloc) 100 mg STK-MED ONCE IVP ; Start 02/13/19 at 10:44; Stop 02/13/19 at 10:45; Status DC Phenylephrine HCl (PHENYLEPHRINE in 0.9% NACL PF) 1 mg STK-MED ONCE IV ; Start 02/13/19 at 10:44; Stop 02/13/19 at 10:45; Status DC Ephedrine Sulfate (ePHEDrine PF IN SALINE SYRINGE) 50 mg STK-MED ONCE IV ; Start 02/13/19 at 10:44; Stop 02/13/19 at 10:45; Status DC Sevoflurane (Ultane) 30 ml STK-MED ONCE IH ; Start 02/13/19 at 11:00; Stop 02/13 at 11:01; Status DC Morphine Sulfate (Morphine Sulfate) 2 mg PRN Q2HR PRN IV PAIN Last administered on 02/13/19 20:44; Start 02/13/19 at 11:30 Acetaminophen/ Hydrocodone Bitart (Lortab 5/325) 2 tab PRN Q4HRS PRN PO MODERATE - SEVERE PAIN; Start 02/13/19 at 11:30 Heparin Sodium/ Dextrose 500 ml @ 0 mls/hr CONT PRN IV SEE I/O RECORD Last administered on 02/15/19 07:39; Start 02/13/19 at 12:30 Info (Anti-Coagulation Monitoring By Pharmacy) 1 each PRN DAILY PRN MC SEE COMMENTS Last administered on 02/14/19at 13:22; Start 02/13/19 at 11:45 Metoprolol Tartrate (Lopressor Vial) 5 mg 1X ONCE IVP ; Start 02/13/19 at 12:15 ; Stop 02/13/19 at 12:18; Status DC Digoxin (Lanoxin) 250 mcg 1X ONCE IV Last administered on 02/13/19 12:26; Start 02/13/19 at 12:30; Stop 02/13/19 at 12:31; Status DC Lactobacillus Rhamnosus (Culturelle) 1 cap BID PO Last administered on 07:35; Start 02/13/19 at 21:00 Aspirin (Ecotrin) 81 mg DAILY PO Last administered on 02/15/19 08:23; Start at 16:00 Metoprolol Succinate (Toprol Xl) 12.5 mg DAILY PO ; Start 02/13/19 at 16:00; Stop 02/14/19 at 10:24; Status DC Bumetanide (Bumex) 2 mg BID PO Last administered on 02/14/19 08:34; Start at 21:00; Stop 02/14/19 at 13:56; Status DC Atorvastatin Calcium (Lipitor) 80 mg QHS PO Last administered on 02/14/19 21: 47; Start 02/13/19 at 21:00 Diltiazem HCl 125 mg/Dextrose 125 ml @ 5 mls/hr CONT PRN IV SEE I/O RECORD Last administered on 02/13/19at 16:55; Start 02/13/19 at 16:15; Stop 02/14/19 at 11:19; Status DC Insulin Human Lispro (HumaLOG) 0-7 UNITS QIDACHS SQ Last administered on at 12:33; Start 02/14/19 at 07:30 Insulin Human Lispro (HumaLOG) 9 units 1X ONCE SQ Last administered on at 22:04; Start 02/13/19 at 21:30; Stop 02/13/19 at 21:31; Status DC Amoxicillin/ Clavulanate Potassium (Augmentin 500/ 125mg) 1 tab BID PO Last administered on 02/15/19at 07:35; Start 02/14/19 at 09:00 Doxycycline Hyclate (Vibra-Tab) 100 mg BID PO Last administered on 02/15/19 07 :35; Start 02/14/19 at 09:00 Metoprolol Succinate (Toprol Xl) 25 mg DAILY PO Last administered on 02/15/19at 07:35; Start 02/14/19 at 11:00 Insulin Human Lispro (HumaLOG) 4 units TIDWMEALS SQ Last administered on at 12:34; Start 02/14/19 at 12:00 Heparin Sodium (Porcine) (Heparin Sodium) 2,000 unit PRN Q6HRS PRN IV FOR UFH LEVEL LESS THAN 0.2; Start 02/15/19 at 04:30 Linezolid (Zyvox) 600 mg BID PO ; Start 02/15/19 at 14:00 Active Scripts Active Reported Aspirin Ec (Aspirin) 81 Mg Tablet.dr 1 Tab PO DAILY Bumetanide 2 Mg Tablet 1 Tab PO BID Crestor (Rosuvastatin Calcium) 40 Mg Tablet 40 Mg PO HS Warfarin Sodium 4 Mg Tablet 4 Mg PO DAILY Metoprolol Succinate ( Xl ) (Metoprolol Succinate) 25 Mg Tab.er.24h 0.5 Tab PO DAILY Vitals/I & O Vital Sign - Last 24 Hours 02/14/19 02/14/19 02/14/19 02/14/19 14:43 19:00 20:00 22:56 Temp 97.4 98.1 97.9 97.4 98.1 97.9 Pulse 80 81 82 Resp 16 16 15 B/P (MAP) 114/67 (83) 117/59 (78) 166/69 (101) Pulse Ox 86 94 94 O2 Delivery Nasal Cannula Nasal Cannula Nasal Cannula Nasal Cannula O2 Flow Rate 2.0 2.0 2.0 2.0 02/15/19 02/15/19 02/15/19 02/15/19 02:45 07:04 07:35 07:48 Temp 97.9 97.2 97.9 97.2 Pulse 87 74 74 Resp 15 20 B/P (MAP) 138/92 (107) 129/58 (81) 129/58 Pulse Ox 93 O2 Delivery Nasal Cannula Nasal Cannula Nasal Cannula O2 Flow Rate 2.0 2.0 2.0 02/15/19 11:10 Pulse 63 B/P (MAP) 138/69 (92) Pulse Ox 94 O2 Delivery Room Air Intake and Output 02/14/19 02/14/19 02/15/19 15:00 23:00 07:00 Intake Total 225 ml 200 ml 800 ml Output Total 300 ml 1200 ml Balance -75 ml 200 ml -400 ml SHREYA FRIAS MD Feb 15, 2019 14:38
[2019-02-15] MEDS: LINEZOLID 600 MG TABLET PO SCH ×2 (15:07→21:58)
[2019-02-15] MEDS: WARFARIN 4 MG TABLET. PO SCH (15:08)
[2019-02-15 15:35] VITALS: BP 97/52
[2019-02-15 20:22] VITALS: BP 122/60
[2019-02-15] MEDS: ATORVASTATIN CALCIUM 40 MG TABLET. PO SCH (21:57)
[2019-02-15] MEDS: HYDROcodone/APAP 5/325MG 1 TAB TABLET PO PRN (21:59)
[2019-02-15] MEDS: INSULIN GLARGINE 300 UNITS/3 ML INSULN.PEN. SQ SCH (22:04)
[2019-02-15 22:50] VITALS: BP 109/58
[2019-02-16] MEDS: HEPARIN 25,000UTS/500ML PREMIX 500 ML IV PRN (01:39)
[2019-02-16 04:17] VITALS: BP 115/56
[2019-02-16 05:33] LABS: PROTHROMBIN TIME PATIENT 21.6 SEC (11.7-14.0)
[2019-02-16 07:10] VITALS: BP 103/50
[2019-02-16] MEDS: INSULIN LISPRO 300 UNITS/3 ML INSULN.PEN. SQ SCH ×7 (07:30→20:55)
[2019-02-16] MEDS: AMOXICILLIN/K CLAV 500/125MG TABLET. PO SCH ×2 (08:21→20:45)
[2019-02-16] MEDS: ASPIRIN ENTERIC COATED 81 MG TABLET.DR. PO SCH (08:21)
[2019-02-16] MEDS: LACTOBACILLUS RHAMNOSUS GG 1 CAPSULE. PO SCH ×2 (08:21→20:45)
[2019-02-16] MEDS: DOXYCYCLINE HYCLATE 100 MG TABLET PO SCH ×2 (08:21→20:45)
[2019-02-16] MEDS: SENNOSIDES/DOCUSATE 8.6/50MG TABLET. PO SCH ×2 (08:21→20:46)
[2019-02-16] MEDS: LINEZOLID 600 MG TABLET PO SCH ×2 (08:21→20:45)
[2019-02-16] MEDS: METOPROLOL SUCC 24HR ER 25 MG TAB.ER.24H. PO SCH (08:30)
--- NOTE | 2019-02-16 08:53 | PDOC ---
PROGRESS NOTES Chief Complaint Chief Complaint Left second toe osteomyelitis - Multiple bilateral foot ulcers. 02/13/2019 underwent. Left 2nd and 3rd toe amputation, closed. Debridement of bilateral foot ulcers to subcutaneous tissue Renal insufficiency Onychomycosis Peripheral vascular disease LE cellulitis - RLE worse than left, empiric coverage for strep and staph, consult ID, will obtain cultures first. Follow cultures and CBC DM - she does not know her meds, will place on basal bolus plus regimen dCHF - she feels in mild exacerbation, prn IV lasix PAD - confirmed at [facility] on 12/07/18, obtain records s/p AVR - looks aortic on recent CXR and is bovine per [facility] records, INR daily, hold coumadin, will bridge on heparin when she is subtherapeutic in prep for surgery. Confirm valve with echo. Restart warfarin Recent pacemaker removal - will obtain blood cultures Multiple foot ulcers - wound care following Left second toe osteomyelitis. mri Findings consistent with osteomyelitis of the distal phalanx of the second toe. s/p amputation Onychomycosis Diabetes with peripheral neuropathy Tobacco user FEN - ADA diet PPX - heparin GTT, can convert back to warfarin today, ok with vascular surgery FULL CODE Inpatient for bilateral cellulitis and diabetic foot ulcers at least 2 midnights History of Present Illness History of Present Illness Admitted directly from wound clinic for bilateral LE wounds worsening, went to OR on 02/13/19 had left 2nd and 3rd digit amputation 02/13 significant post-op complication of a-fib rvr transferred to cvc icu bed Cardizem oral and heparin GTT off, back on coumadin, at HR 79. She has some pain in both feet currently, feels weak. Glucose elevated. No SOB or CPR Plan: Change back to home BB dosing today Cont heparin GTT for afib, back on coumadin. Ok to d/c heparin now that INR greater than 1.8 iv Zosyn, Zyvox stopped, d/c micafungin per ID Placement - she wishes for [facility] on d/c Post-op pain control Still needs her [facility] records, have not arrived yet Vitals Vitals Vital Signs Date Time Temp Pulse Resp B/P (MAP) Pulse Ox O2 Delivery O2 Flow Rate FiO2 02/16/19 08:30 73 103/50 02/16/19 07:10 97.7 24 97.7 02/16/19 04:17 91 Room Air 02/15/19 21:59 2.0 Physical Exam Physical Exam GENERAL: Lying down, relaxed HEENT: Pupils equal, poor dentition. No thrush. NECK: Supple. LUNGS: Clear. HEART: S1, S2. irregular ABDOMEN: Soft. Bowel sounds present, nondistended. EXTREMITIES: No edema, no clubbing, no cyanosis. Feet bandaged RADIATOR FITTER: Moves all 4 extremities. Alert, responding appropriately PIVs ok General: Alert, Oriented X3, Cooperative, No acute distress Heart: Other (IRRR; tele AFIB with RVR) Lungs: Clear Abdomen: Soft, No tenderness Extremities: Other (2 ulcers right foot, decreased pulses. Callous on 2nd left toe and 5th MTP post op dressing dry) Skin: Other (DRSG intact to bilaterl feet) Labs LABS Laboratory Tests Test 02/15/19 10:35 02/15/19 11:16 02/15/19 16:53 02/15/19 21:47 Heparin Anti-Xa Act, Unfractionated 0.42 IU/mL (0.30-0.70) Glucose (Fingerstick) 152 mg/dL (70-99) 122 mg/dL (70-99) 148 mg/dL (70-99) Test 02/16/19 03:45 02/16/19 08:07 Prothrombin Time 21.6 SEC (11.7-14.0) Prothromb Time International Ratio 1.9 (0.8-1.1) Glucose (Fingerstick) 123 mg/dL (70-99) Comment Review of Relevant I have reviewed the following items hernandez (where applicable) has been applied. Labs Laboratory Tests Test 02/14/19 11:05 02/14/19 11:27 02/14/19 16:37 02/14/19 18:05 Heparin Anti-Xa Act, Unfractionated 0.29 IU/mL (0.30-0.70) 0.42 IU/mL (0.30-0.70) Glucose (Fingerstick) 328 mg/dL (70-99) 290 mg/dL (70-99) Test 02/14/19 20:18 02/15/19 04:40 02/15/19 07:09 02/15/19 10:35 Glucose (Fingerstick) 343 mg/dL (70-99) 188 mg/dL (70-99) White Blood Count 7.2 x10^3/uL (4.0-11.0) Red Blood Count 4.16 x10^6/uL (3.50-5.40) Hemoglobin 10.9 g/dL (12.0-15.5) Hematocrit 33.9 % (36.0-47.0) Mean Corpuscular Volume 81 fL (79-100) Mean Corpuscular Hemoglobin 26 pg (25-35) Mean Corpuscular Hemoglobin Concent 32 g/dL (31-37) Red Cell Distribution Width 20.7 % (11.5-14.5) Platelet Count 219 x10^3/uL (140-400) Neutrophils (%) (Auto) 78 % (31-73) Lymphocytes (%) (Auto) 14 % (24-48) Monocytes (%) (Auto) 7 % (0-9) Eosinophils (%) (Auto) 0 % (0-3) Basophils (%) (Auto) 1 % (0-3) Neutrophils # (Auto) 5.6 x10^3uL (1.8-7.7) Lymphocytes # (Auto) 1.0 x10^3/uL (1.0-4.8) Monocytes # (Auto) 0.5 x10^3/uL (0.0-1.1) Eosinophils # (Auto) 0.0 x10^3/uL (0.0-0.7) Basophils # (Auto) 0.0 x10^3/uL (0.0-0.2) Heparin Anti-Xa Act, Unfractionated 0.43 IU/mL (0.30-0.70) 0.42 IU/mL (0.30-0.70) Sodium Level 132 mmol/L (136-145) Potassium Level 4.4 mmol/L (3.5-5.1) Chloride Level 98 mmol/L (98-107) Carbon Dioxide Level 22 mmol/L (21-32) Anion Gap 12 (6-14) Blood Urea Nitrogen 51 mg/dL (7-20) Creatinine 2.5 mg/dL (0.6-1.0) Estimated GFR (Cockcroft-Gault) 18.9 Glucose Level 245 mg/dL (70-99) Calcium Level 8.3 mg/dL (8.5-10.1) Test 4/20/19 11:16 02/15/19 16:53 02/15/19 21:47 02/16/19 03:45 Glucose (Fingerstick) 152 mg/dL (70-99) 122 mg/dL (70-99) 148 mg/dL (70-99) Prothrombin Time 21.6 SEC (11.7-14.0) Prothromb Time International Ratio 1.9 (0.8-1.1) Test 02/16/19 08:07 Glucose (Fingerstick) 123 mg/dL (70-99) Laboratory Tests Test 02/15/19 10:35 02/15/19 11:16 02/15/19 16:53 02/15/19 21:47 Heparin Anti-Xa Act, Unfractionated 0.42 IU/mL (0.30-0.70) Glucose (Fingerstick) 152 mg/dL (70-99) 122 mg/dL (70-99) 148 mg/dL (70-99) Test 02/16/19 03:45 02/16/19 08:07 Prothrombin Time 21.6 SEC (11.7-14.0) Prothromb Time International Ratio 1.9 (0.8-1.1) Glucose (Fingerstick) 123 mg/dL (70-99) Microbiology 02/11/19 Blood Culture - Preliminary, Resulted NO GROWTH AFTER 4 DAYS 02/12/19 Anaerobic/Aerobic Culture - Preliminary, Resulted 02/12/19 Anaerobic Culture Result 1 (FREDERICK) - Preliminary, Resulted 02/12/19 Aerobic Culture - Preliminary, Resulted 02/12/19 Aerobic Culture Result 1 (FREDERICK) - Preliminary, Resulted 02/12/19 Aerobic Culture Result 2 (FREDERICK) - Preliminary, Resulted 02/12/19 Antimicrobic Susceptibility - Preliminary, Resulted 02/12/19 Gram Stain - Final, Resulted 02/12/19 Gram Stain Result 1 (FREDERICK) - Final, Resulted 02/12/19 Gram Stain Result 2 (FREDERICK) - Final, Resulted Medications Current Medications Ondansetron HCl (Zofran) 4 mg PRN Q6HRS PRN IV NAUSEA/VOMITING Last administered on 02/14/19at 11:26; Start 02/11/19 at 14:15 Acetaminophen/ Hydrocodone Bitart (Lortab 5/325) 1 tab PRN Q4HRS PRN PO MILD PAIN Last administered on 02/15/19at 21:59; Start 02/11/19 at 14:15 Acetaminophen (Tylenol) 650 mg PRN Q6HRS PRN PO Headaches, Temp > 101.5F; Start 02/11/19 at 14:15 Senna/Docusate Sodium (Senna Plus) 1 tab BID PO Last administered on 02/16/19at 08:21; Start 02/11/19 at 21:00 Lactulose (Lactulose) 20 gm PRN Q12HR PRN PO CONSTIPATION; Start 02/11/19 at 14 :15 Heparin Sodium (Porcine) (Heparin Sodium) 5,000 unit Q8HRS SQ ; Start 02/11/19 at 22:00; Stop 02/12/19 at 13:53; Status DC Piperacillin Sod/ Tazobactam Sod 3.375 gm/Sodium Chloride 50 ml @ 100 mls/hr Q6HRS IV Last administered on 02/13/19at 05:50; Start 02/11/19 at 18:00; Stop at 10:05; Status DC Micafungin Sodium 100 mg/Dextrose 100 ml @ 100 mls/hr Q24H IV Last administered on 02/14/19at 17:21; Start 02/11/19 at 16:00; Stop 02/15/19 at 13:33 ; Status DC Linezolid (Zyvox) 600 mg BID PO Last administered on 02/13/19at 20:44; Start at 21:00; Stop 02/14/19 at 08:18; Status DC Insulin Glargine (Lantus) 10 units QHS SQ Last administered on 02/15/19at 22:04 ; Start 02/11/19 at 21:00 Insulin Human Lispro (HumaLOG) 0-7 UNITS TIDWMEALS SQ Last administered on 02/13at 16:54; Start 02/12/19 at 08:00; Stop 02/13/19 at 21:29; Status DC Dextrose (Dextrose 50%-Water Syringe) 12.5 gm PRN Q15MIN PRN IV SEE COMMENTS; Start 02/11/19 at 19:45 Zolpidem Tartrate (Ambien) 5 mg PRN QHS PRN PO INSOMNIA Last administered on at 22:20; Start 02/11/19 at 21:15 Lidocaine HCl 48 ml/Sodium Bicarbonate 12 meq/Miscellaneous 60 ml @ 60 mls/hr 1X ONCE ID ; Start 02/13/19 at 06:00; Stop 02/13/19 at 06:59; Status DC Ondansetron HCl (Zofran) 4 mg PRN Q6HRS PRN IV NAUSEA/VOMITING; Start 02/13/19 at 07:00; Stop 02/13/19 at 16:31; Status DC Fentanyl Citrate (Fentanyl 2ml Vial) 25 mcg PRN Q5MIN PRN IV MILD PAIN; Start 02/13/19 at 07:00; Stop 02/14/19 at 06:59; Status DC Fentanyl Citrate (Fentanyl 2ml Vial) 50 mcg PRN Q5MIN PRN IV MODERATE TO SEVERE PAIN; Start 02/13/19 at 07:00; Stop 02/14/19 at 06:59; Status DC Morphine Sulfate (Morphine Sulfate) 1 mg PRN Q10MIN PRN IV SEVERE PAIN; Start 02/13/19 at 07:00; Stop 02/14/19 at 06:59; Status DC Ringer's Solution 1,000 ml @ 30 mls/hr Q24H IV Last administered on 02/13/19at 09:46; Start 02/13/19 at 07:00; Stop 02/13/19 at 18:59; Status DC Lidocaine HCl (Xylocaine-Mpf 1% 2ml Vial) 2 ml PRN 1X PRN ID PRIOR TO IV START ; Start 02/13/19 at 07:00; Stop 02/14/19 at 06:59; Status DC Hydromorphone HCl (Dilaudid) 0.5 mg PRN Q10MIN PRN IV SEV PAIN, Second choice; Start 02/13/19 at 07:00; Stop 02/14/19 at 06:59; Status DC Prochlorperazine Edisylate (Compazine) 5 mg PACU PRN PRN IV NAUSEA, MRX1 Last administered on 02/13/19at 11:38; Start 02/13/19 at 07:00; Stop 02/14/19 at 06:59 ; Status DC Phytonadione 5 mg/ Dextrose 50.5 ml @ 102 mls/hr 1X ONCE IV Last administered on 02/12/19at 15:30; Start 02/12/19 at 15:00; Stop 02/12/19 at 15:29 ; Status DC Propofol 20 ml @ As Directed STK-MED ONCE IV ; Start 02/13/19 at 09:42; Stop at 09:43; Status DC Dexamethasone Sodium Phosphate (Decadron) 20 mg STK-MED ONCE .ROUTE ; Start at 09:42; Stop 02/13/19 at 09:43; Status DC Lidocaine HCl (Lidocaine Pf 2% Vial) 5 ml STK-MED ONCE .ROUTE ; Start 02/13/19 at 09:42; Stop 02/13/19 at 09:43; Status DC Ondansetron HCl (Zofran) 4 mg STK-MED ONCE .ROUTE ; Start 02/13/19 at 09:42; Stop 02/13/19 at 09:43; Status DC Piperacillin Sod/ Tazobactam Sod 2.25 gm/Sodium Chloride 50 ml @ 100 mls/hr Q8HRS IV Last administered on 02/14/19at 06:10; Start 02/13/19 at 14:00; Stop at 08:18; Status DC Ephedrine Sulfate (ePHEDrine PF IN SALINE SYRINGE) 50 mg STK-MED ONCE IV ; Start 02/13/19 at 10:28; Stop 02/13/19 at 10:29; Status DC Vasopressin (Vasostrict) 20 unit STK-MED ONCE .ROUTE ; Start 02/13/19 at 10:31; Stop 02/13/19 at 10:32; Status DC Esmolol HCl (Brevibloc) 100 mg STK-MED ONCE IVP ; Start 02/13/19 at 10:44; Stop 02/13/19 at 10:45; Status DC Phenylephrine HCl (PHENYLEPHRINE in 0.9% NACL PF) 1 mg STK-MED ONCE IV ; Start 02/13/19 at 10:44; Stop 02/13/19 at 10:45; Status DC Ephedrine Sulfate (ePHEDrine PF IN SALINE SYRINGE) 50 mg STK-MED ONCE IV ; Start 02/13/19 at 10:44; Stop 02/13/19 at 10:45; Status DC Sevoflurane (Ultane) 30 ml STK-MED ONCE IH ; Start 02/13/19 at 11:00; Stop 02/13 at 11:01; Status DC Morphine Sulfate (Morphine Sulfate) 2 mg PRN Q2HR PRN IV PAIN Last administered on 02/13/19at 20:44; Start 02/13/19 at 11:30 Acetaminophen/ Hydrocodone Bitart (Lortab 5/325) 2 tab PRN Q4HRS PRN PO MODERATE - SEVERE PAIN; Start 02/13/19 at 11:30 Heparin Sodium/ Dextrose 500 ml @ 0 mls/hr CONT PRN IV SEE I/O RECORD Last administered on 02/16/19at 01:39; Start 02/13/19 at 12:30 Info (Anti-Coagulation Monitoring By Pharmacy) 1 each PRN DAILY PRN MC SEE COMMENTS Last administered on 02/14/19at 13:22; Start 02/13/19 at 11:45; Stop at 07:31; Status DC Metoprolol Tartrate (Lopressor Vial) 5 mg 1X ONCE IVP ; Start 02/13/19 at 12:15 ; Stop 02/13/19 at 12:18; Status DC Digoxin (Lanoxin) 250 mcg 1X ONCE IV Last administered on 02/13/19at 12:26; Start 02/13/19 at 12:30; Stop 02/13/19 at 12:31; Status DC Lactobacillus Rhamnosus (Culturelle) 1 cap BID PO Last administered on at 08:21; Start 02/13/19 at 21:00 Aspirin (Ecotrin) 81 mg DAILY PO Last administered on 02/16/19at 08:21; Start at 16:00 Metoprolol Succinate (Toprol Xl) 12.5 mg DAILY PO ; Start 02/13/19 at 16:00; Stop 02/14/19 at 10:24; Status DC Bumetanide (Bumex) 2 mg BID PO Last administered on 02/14/19at 08:34; Start at 21:00; Stop 02/14/19 at 13:56; Status DC Atorvastatin Calcium (Lipitor) 80 mg QHS PO Last administered on 02/15/19at 21: 57; Start 02/13/19 at 21:00 Diltiazem HCl 125 mg/Dextrose 125 ml @ 5 mls/hr CONT PRN IV SEE I/O RECORD Last administered on 02/13/19at 16:55; Start 02/13/19 at 16:15; Stop 02/14/19 at 11:19; Status DC Insulin Human Lispro (HumaLOG) 0-7 UNITS QIDACHS SQ Last administered on 12:33; Start 02/14/19 at 07:30 Insulin Human Lispro (HumaLOG) 9 units 1X ONCE SQ Last administered on 22:04; Start 02/13/19 at 21:30; Stop 02/13/19 at 21:31; Status DC Amoxicillin/ Clavulanate Potassium (Augmentin 500/ 125mg) 1 tab BID PO Last administered on 02/16/19 08:21; Start 02/14/19 at 09:00 Doxycycline Hyclate (Vibra-Tab) 100 mg BID PO Last administered on 02/16/19 08 :21; Start 02/14/19 at 09:00 Metoprolol Succinate (Toprol Xl) 25 mg DAILY PO Last administered on 02/16/19 08:30; Start 02/14/19 at 11:00 Insulin Human Lispro (HumaLOG) 4 units TIDWMEALS SQ Last administered on 17:24; Start 02/14/19 at 12:00 Heparin Sodium (Porcine) (Heparin Sodium) 2,000 unit PRN Q6HRS PRN IV FOR UFH LEVEL LESS THAN 0.2; Start 02/15/19 at 04:30 Linezolid (Zyvox) 600 mg BID PO Last administered on 02/16/19 08:21; Start at 14:00 Warfarin Sodium (Coumadin) 4 mg DAILY16 PO Last administered on 02/15/19 15:08 ; Start 02/15/19 at 16:00 Warfarin Sodium (Coumadin Per Physician) 1 each PRN DAILY PRN MC SEE COMMENTS Last administered on 02/16/19at 07:34; Start 02/15/19 at 14:45 Ondansetron HCl (Zofran Odt) 4 mg PRN Q6HRS PRN PO NAUSEA/VOMITING; Start 02/16 at 08:45 Active Scripts Active Reported Aspirin Ec (Aspirin) 81 Mg Tablet.dr 1 Tab PO DAILY Bumetanide 2 Mg Tablet 1 Tab PO BID Crestor (Rosuvastatin Calcium) 40 Mg Tablet 40 Mg PO HS Warfarin Sodium 4 Mg Tablet 4 Mg PO DAILY Metoprolol Succinate ( Xl ) (Metoprolol Succinate) 25 Mg Tab.er.24h 0.5 Tab PO DAILY Vitals/I & O Vital Sign - Last 24 Hours 02/15/19 02/15/19 02/15/19 02/15/19 11:10 15:35 19:59 20:00 Pulse 63 75 Resp 18 B/P (MAP) 138/69 (92) 97/52 (67) Pulse Ox 94 O2 Delivery Room Air Room Air Room Air Room Air 02/15/19 02/15/19 02/15/19 02/15/19 20:22 21:59 22:50 23:00 Temp 98.2 97.6 98.2 97.6 Pulse 84 76 Resp 18 22 20 B/P (MAP) 122/60 (80) 109/58 (75) Pulse Ox 92 92 92 92 O2 Delivery Room Air Nasal Cannula Room Air Room Air O2 Flow Rate 2.0 02/16/19 02/16/19 02/16/19 02/16/19 03:59 04:17 07:10 08:30 Temp 97.5 97.7 97.5 97.7 Pulse 73 68 73 Resp 18 24 B/P (MAP) 115/56 (75) 103/50 (67) 103/50 Pulse Ox 91 O2 Delivery Room Air Room Air Intake and Output 02/15/19 02/15/19 02/16/19 15:00 23:00 07:00 Intake Total 240 ml 120 ml 700 ml Output Total 50 ml 200 ml 150 ml Balance 190 ml -80 ml 550 ml SHREYA FRIAS MD Feb 16, 2019 08:53
--- NOTE | 2019-02-16 09:49 | PDOC ---
Provider Note Provider Note Vascular surgery, follow-up Left foot dressing is removed. Her toe amputation site is healing. Wound edges approximated. Patient is doing well. Would continue current wound care therapy for the remainder of her leg wounds. She needs a postop shoe, she may begin activity bearing on her left foot later this week PATTI BA MD Feb 16, 2019 09:49
--- NOTE | 2019-02-16 10:31 | PDOC ---
CARDIOLOGY PROGRESS NOTE SUBJECTIVE: No acute events overnight. Continues to feel poorly and has nausea and overall fatigue. OBJECTIVE: Vital SIgns: Vital Signs Date Time Temp Pulse Resp B/P (MAP) Pulse Ox O2 Delivery O2 Flow Rate FiO2 02/16/19 08:30 73 103/50 02/16/19 07:10 97.7 24 97.7 02/16/19 04:17 91 Room Air 02/15/19 21:59 2.0 I & O Intake and Output 02/16/19 06:59 Intake Total 1060 ml Output Total 400 ml Balance 660 ml Intake Oral 560 ml IV Total 500 ml Output Urine Total 400 ml Objective: On examination she is quite distressed due to nausea and overall feeling tired Heart tones are unremarkable. Decreased breath sounds at the bases Abdomen is mildly tender to palpation diffusely Trace lower extremity edema with both feet wrapped in gauze wrap. CURRENT MEDICATIONS: Pertinent medications include warfarin, atorvastatin, Toprol and aspirin DIAGNOSTIC TESTING: INR almost therapeutic at 1.9 Creatinine stable at 2.5. ASSESSMENT: 1. 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 PAD status post surgical intervention with amputation of her digits in her lower extremities 3. Chronic atrial fibrillation on anticoagulation PLAN: 1. Given the patient's significant debility if okay with the other specialists and primary care team would highly consider a palate of care discussion regarding goals of care. 2. From a purely cardiac perspective nothing further that we can offer given her significant cardio myopathy. Continue low-dose Lasix when necessary for dyspnea. Given her poor by mouth intake at this present time would not aggressively diuresis specially in light of her elevated creatinine. 3. If after discussion with palliative care team she wishes to have aggressive management with then transferred to [facility] for optimization of her heart failure issues. Supportive care. AAYUSH MARKS MD Feb 16, 2019 10:31
[2019-02-16] MEDS: ONDANSETRON ODT 4 MG TAB.RAPDIS. PO PRN ×2 (10:42→20:39)
[2019-02-16 11:09] VITALS: BP 124/72
[2019-02-16 15:06] VITALS: BP 125/61
[2019-02-16] MEDS: WARFARIN 4 MG TABLET. PO SCH (17:49)
--- NOTE | 2019-02-16 18:02 | NUR ---
PATIENT REFUSED SLIDING SCALE INSULIN ALL DAY DUE TO NOT EATING VERY MUCH. PTS FEET WASHED WOUNDS REBANDAGED AND ARE CLEAN DR AND INTACT AT THIS TIME.
[2019-02-16 18:40] VITALS: BP 133/86
[2019-02-16] MEDS: ATORVASTATIN CALCIUM 40 MG TABLET. PO SCH (20:45)
[2019-02-16] MEDS: INSULIN GLARGINE 300 UNITS/3 ML INSULN.PEN. SQ SCH (20:55)
[2019-02-16 23:50] VITALS: BP 106/53
[2019-02-17 03:00] VITALS: BP 142/61
[2019-02-17 07:00] VITALS: BP 114/73
[2019-02-17] MEDS: INSULIN LISPRO 300 UNITS/3 ML INSULN.PEN. SQ SCH ×4 (07:30→12:29)
[2019-02-17 08:22] LABS: PROTHROMBIN TIME PATIENT 25.4 SEC (11.7-14.0)
[2019-02-17] MEDS: SENNOSIDES/DOCUSATE 8.6/50MG TABLET. PO SCH (08:29)
[2019-02-17] MEDS: ASPIRIN ENTERIC COATED 81 MG TABLET.DR. PO SCH (08:30)
[2019-02-17] MEDS: LINEZOLID 600 MG TABLET PO SCH (08:30)
[2019-02-17] MEDS: METOPROLOL SUCC 24HR ER 25 MG TAB.ER.24H. PO SCH (08:30)
[2019-02-17] MEDS: LACTOBACILLUS RHAMNOSUS GG 1 CAPSULE. PO SCH (08:30)
[2019-02-17] MEDS: AMOXICILLIN/K CLAV 500/125MG TABLET. PO SCH (08:30)
[2019-02-17] MEDS: DOXYCYCLINE HYCLATE 100 MG TABLET PO SCH (08:30)
--- NOTE | 2019-02-17 08:37 | PDOC ---
Infectious Disease Note Subjective Subjective Feeling better this morning. Appetite improving Comfortable, denies pain Nonweightbearing No fevers/diarrhea/SOA ROS ROS o/w neg Vital Sign Vital Signs Vital Signs Date Time Temp Pulse Resp B/P (MAP) Pulse Ox O2 Delivery O2 Flow Rate FiO2 02/17/19 08:30 71 114/73 02/17/19 07:00 97.6 16 97 Room Air 97.6 02/16/19 18:40 2.0 Physical Exam PHYSICAL EXAM GENERAL: NAD sitting on side of bed. relaxed/coop HEENT: Pupils equal, poor dentition. No thrush. NECK: Supple. LUNGS: Clear. HEART: S1, S2. irregular ABDOMEN: Soft. Bowel sounds present, nondistended. EXTREMITIES: No edema, no clubbing, no cyanosis. Left foot incision is clean. mild serosangious. No gross infection BLOCKER HAND: Moves all 4 extremities. Alert, responding appropriately PIVs ok Labs Lab Laboratory Tests Test 02/16/19 12:05 02/16/19 17:10 02/16/19 20:06 02/17/19 07:20 Glucose (Fingerstick) 178 mg/dL (70-99) 171 mg/dL (70-99) 156 mg/dL (70-99) Prothrombin Time 25.4 SEC (11.7-14.0) Prothromb Time International Ratio 2.3 (0.8-1.1) Test 02/17/19 08:01 Glucose (Fingerstick) 119 mg/dL (70-99) Micro Enterococcus faecalis 2+ AEROBIC RES 2 Preliminary Staphylococcus aureus Scant growth ANTIMICROBIAL SUSCEPTIBILITY Preliminary Comment S = Susceptible; I = Intermediate; R = Resistant P = Positive; N = Negative MICS are expressed in micrograms per mL Antibiotic RSLT#1 RSLT#2 RSLT#3 RSLT#4 Penicillin S =2 Vancomycin S =1 02/11. BLOOD CULTURE Preliminary NO GROWTH AFTER 3 DAYS 02/12. ANAEROBIC RES 1 Preliminary No anaerobes recovered in 48 hours. AEROBIC RES 1 Preliminary Streptococcus species Objective Assessment Left second toe osteomyelitis. Enterococcus PCNsen and MSSA spp 02/12. s/p left 2nd and 3rd toe amputation, closed on 02/13/2019 Multiple bilateral foot ulcers s/p debridement to subcutaneous tissue, on 2018 Renal insufficiency/SIMA Onychomycosis. Diabetes with peripheral neuropathy. Tobacco user. Coronary artery disease, status post aortic valve replacement. (bovine). Warfarin on hold. currently on heparin gt Peripheral vascular disease. Chronic A. fib Plan Plan of Care Augmentin until 02/19 then can d/c. D/c ZyvoxDoxy Consider renal consult given increase in Cr since 02/04 Wound care per Vascular. D/w nursing ID to sign off IKE CM MD Feb 17, 2019 08:37
--- NOTE | 2019-02-17 10:08 | PDOC2 ---
PALLIATIVE CARE Palliative Care Note Palliative Care Consult requested by Dr. Coy to address goals of care--severe CMP, valvular disease, PAD and failure to thrive. Medical Assessment per medical record: 1. 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 PAD status post surgical intervention with amputation of her digits in her lower extremities 3. Chronic atrial fibrillation on anticoagulation Patient alert. Denies pain or SOB Patient is able to verbalize her medical condition. Tearful. Discussed code status. States she would not want Life Support machines but would have to speak to her son Bolivar. "He will be the one that has a fit" Attempted to reach son -Bolivar. No answer. Number retried and gentleman states this was wrong number Will continue to attempt to reach son to arrange family meeting. INDY CAZARES Feb 17, 2019 10:08
[2019-02-17] MEDS ORDERED: HYDR-2761 PO (10:33)
[2019-02-17] MEDS ORDERED: INSU100I13 SQ (10:33)
[2019-02-17] MEDS ORDERED: AMOX1TAB10 PO (10:33)
[2019-02-17] MEDS ORDERED: INSU100I11 SQ (10:33)
--- NOTE | 2019-02-17 10:34 | SNU/HH DC ---
DISCHARGE ORDERS DISCHARGE INFORMATION: DISCHARGE DATE: Feb 17, 2019 CONDITION ON DISCHARGE: Stable CODE STATUS: Code Status: Full [facility]: SNF STAY <30 DAYS: Yes HOSPICE: HOSPICE: No HOSPICE EVAL & TREAT: No LTAC: ADMIT TO LTAC: No POST DISCHARGE ORDERS: ACTIVITY ORDERS: Activity as tolerated WEIGHT BEARING STATUS: Other, see below (ok to weight bear- special fore foot shoe coming) DIET AFTER DISCHARGE: dm 2 OTHER WOUND INSTRUCTIONS: change foot dressing daily at least CHECKS AFTER DISCHARGE: CHECKS AFTER DISCHARGE: Check blood press - daily, Check blood sugar, ac/hs FOLLOW-UP: PHYSICIAN FOLLOW-UP: vasc sx dr mcgovern upon rehab dc TREATMENT/EQUIPMENT ORDERS: ADAPTIVE EQUIPMENT NEEDED: Front wheeled walker Physical Therapy For: Evalulation/Treatment Occupational Therapy For: Evaluation/Treatment DISCHARGE MEDICATIONS: Home Meds Active Scripts Insulin Lispro (HUMALOG) 100 Unit/1 Ml Insuln.pen, 4 UNITS SQ TIDWMEALS for dm MDD 1 for 30 Days, EACH Prov:CHATA VANESSA MD 02/17/19 Insulin Glargine,Hum.rec.anlog (LANTUS SOLOSTAR) 100 Unit/1 Ml Insuln.pen, 10 UNITS SQ QHS for dm MDD 1 for 30 Days, EACH Prov:CHATA VANESSA MD 02/17/19 Hydrocodone Bit/Acetaminophen (HYDROCODONE-APAP 5-325 ) 1 Tab Tablet, 2 TAB PO PRN Q4HRS PRN for MODERATE - SEVERE PAIN MDD 1, #30 TAB Prov:CHATA AVNESSA MD 02/17/19 Amoxicillin/Potassium Clav (AMOX TR-K CLV 500-125 MG TAB) 1 Each Tablet, 1 TAB PO BID for PAD MDD 1 for 3 Days, #6 TAB Prov:CHATA VANESSA MD 02/17/19 Reported Medications Aspirin (ASPIRIN EC) 81 Mg Tablet., 1 TAB PO DAILY for acs, #30 TAB 3 Refills 02/13/19 Bumetanide (BUMETANIDE) 2 Mg Tablet, 1 TAB PO BID for chf, #60 TAB 5 Refills 02/13/19 Rosuvastatin Calcium (CRESTOR) 40 Mg Tablet, 40 MG PO HS for FOR CHOLESTEROL, # 30 TAB 0 Refills 02/13/19 Warfarin Sodium (WARFARIN SODIUM) 4 Mg Tablet, 4 MG PO DAILY for a-fib, #30 TAB 02/13/19 Metoprolol Succinate (METOPROLOL SUCCINATE ( XL )) 25 Mg Tab.er.24h, 0.5 TAB PO DAILY for bp, #30 TAB 5 Refills 02/13/19 CHATA VANESSA MD Feb 17, 2019 10:34
--- NOTE | 2019-02-17 10:38 | PDOC3 ---
Discharge Summary Visit Information Date of Admission: Feb 11, 2019 Date of Discharge: Feb 17, 2019 Admitting Diagnosis Comment: PAD status post toe amputations #s 2,3,4 by vascular surgery Left second toe osteomyelitis - Multiple bilateral foot ulcers. 02/13/2019 underwent. Left 2nd and 3rd toe amputation, closed. Debridement of bilateral foot ulcers to subcutaneous tissue Renal insufficiency Onychomycosbetter - augmentin thru 4.24 DM - dCHF s/p AVR - on warf with INR at goal Recent pacemaker removal - Diabetes with peripheral neuropathy Tobacco user Brief Hospital Course Allergies Allergies Coded Allergies Type Severity Reaction Last Updated Verified No Known Drug Allergies 02/11/19 No Vital Signs Vital Signs Date Time Temp Pulse Resp B/P (MAP) Pulse Ox O2 Delivery O2 Flow Rate FiO2 02/17/19 08:30 71 114/73 02/17/19 08:00 Room Air 02/17/19 07:00 97.6 16 97 97.6 02/16/19 18:40 2.0 Lab Results Laboratory Tests Test 02/15/19 11:16 02/15/19 16:53 02/15/19 21:47 02/16/19 03:45 Glucose (Fingerstick) 152 mg/dL (70-99) 122 mg/dL (70-99) 148 mg/dL (70-99) Prothrombin Time 21.6 SEC (11.7-14.0) Prothromb Time International Ratio 1.9 (0.8-1.1) Test 02/16/19 08:07 02/16/19 12:05 02/16/19 17:10 02/16/19 20:06 Glucose (Fingerstick) 123 mg/dL (70-99) 178 mg/dL (70-99) 171 mg/dL (70-99) 156 mg/dL (70-99) Test 02/17/19 07:20 02/17/19 08:01 Prothrombin Time 25.4 SEC (11.7-14.0) Prothromb Time International Ratio 2.3 (0.8-1.1) Glucose (Fingerstick) 119 mg/dL (70-99) Laboratory Tests Test 02/16/19 12:05 02/16/19 17:10 02/16/19 20:06 02/17/19 07:20 Glucose (Fingerstick) 178 mg/dL (70-99) 171 mg/dL (70-99) 156 mg/dL (70-99) Prothrombin Time 25.4 SEC (11.7-14.0) Prothromb Time International Ratio 2.3 (0.8-1.1) Test 02/17/19 08:01 Glucose (Fingerstick) 119 mg/dL (70-99) Brief Hospital Course Ms. Moss is a 73 old white female who came from home she has multiple comorbidities please refer to my diagnosis above She has severe PAD underwent amputation by vascular surgery of toe numbers 2,3, 4 on the right. She has some chronic wounds. Comanage with ID. Was previously and IV antibiotics now will be able to discharge by mouth Augmentin through 02/19 Cleared from vasc surgery and ID. She needs rehabilitation and she is interested in [place] Full code I have reconciled home meds and Rx on chart Patient seen and examined, discussed with RN and social work consults: ID, vasc sx, cards Proc: toe amputations Discharge Information Condition at Discharge: Improved, Stable Follow Up: Weeks (4 weeks vasc sx) Disposition/Orders: Other (snu) Scheduled Amoxicillin/Potassium Clav (Amox Tr-K Clv 500-125 Mg Tab) 1 Each Tablet, 1 TAB PO BID for PAD MDD 1 for 3 Days, #6 Prescribed by: CHATA VANESSA on 02/17/19 1033 Aspirin (Aspirin Ec) 81 Mg Tablet.dr, 1 TAB PO DAILY for acs, #30 Ref 3 ( Reported) Entered as Reported by: RONAK GILMORE on 02/13/19 1441 Last Taken: Unknown Dose on 02/10/19 Last Action: Continued on 02/13/191518 by NICOLE LUKE RN Bumetanide (Bumetanide) 2 Mg Tablet, 1 TAB PO BID for chf, #60 Ref 5 (Reported) Entered as Reported by: RONAK GILMORE on 02/13/19 1441 Last Taken: Unknown Dose on 02/10/19 Last Action: Converted on 02/13/191518 by NICOLE LUKE RN Insulin Glargine,Hum.rec.anlog (Lantus Solostar) 100 Unit/1 Ml Insuln.pen, 10 UNITS SQ QHS for dm MDD 1 for 30 Days Prescribed by: CHATA VANESSA on 02/17/19 1033 Insulin Lispro (Humalog) 100 Unit/1 Ml Insuln.pen, 4 UNITS SQ TIDWMEALS for dm MDD 1 for 30 Days Prescribed by: CHATA VANESSA on 02/17/19 1033 Metoprolol Succinate (Metoprolol Succinate ( Xl )) 25 Mg Tab.er.24h, 0.5 TAB PO DAILY for bp, #30 Ref 5 (Reported) Entered as Reported by: RONAK GILMORE on 02/13/19 144 Last Taken: Unknown Dose on 02/10/19 Last Action: Continued on 02/13/191518 by NICOLE LUKE RN Rosuvastatin Calcium (Crestor) 40 Mg Tablet, 40 MG PO HS for FOR CHOLESTEROL, # 30 Ref 0 (Reported) Entered as Reported by: RONAK GILMORE on 02/13/19 144 Last Taken: Unknown Dose on 02/10/19 Last Action: Converted on 02/13/191518 by NICOLE LUKE RN Warfarin Sodium (Warfarin Sodium) 4 Mg Tablet, 4 MG PO DAILY for a-fib, #30 ( Reported) Entered as Reported by: RONAK GILMORE on 02/13/19 144 Last Taken: Unknown Dose on 02/10/19 Last Action: Converted on 02/15/191428 by SHREYA FRIAS MD Scheduled PRN Hydrocodone Bit/Acetaminophen (Hydrocodone-Apap 5-325 ) 1 Tab Tablet, 2 TAB PO PRN Q4HRS PRN for MODERATE - SEVERE PAIN MDD 1, #30 Prescribed by: CHATA VANESSA on 02/17/193 CHATA VANESSA MD Feb 17, 2019 10:38
[2019-02-17] MEDS: ONDANSETRON ODT 4 MG TAB.RAPDIS. PO PRN (10:48)
[2019-02-17 11:27] VITALS: BP 136/63
--- NOTE | 2019-02-17 12:04 | PDOC ---
PROGRESS NOTES Subjective Subjective Patient seen and examined in her hospital room, no new complaints Objective Objective Vital Signs Date Time Temp Pulse Resp B/P (MAP) Pulse Ox O2 Delivery O2 Flow Rate FiO2 02/17/19 11:27 70 16 136/63 (87) 100 Nasal Cannula 2.0 02/17/19 07:00 97.6 97.6 Intake and Output 02/17/19 06:59 Intake Total 700 ml Output Total 1550 ml Balance -850 ml Intake Oral 700 ml Output Urine Total 1550 ml # Bowel Movements 2 Physical Exam Physical Exam Dressings bilateral lower extremity foot wounds clean dry and intact, toe amp incisions clean dry and intact healthy-appearing skin edges Assessment Assessment Doing well status post amputations Plan Plan of Care Okay to discharge to rehabilitation, follow-up for suture removal in 1-[address] Luke Comment Review of Relevant I have reviewed the following items hernandez (where applicable) has been applied. Labs Laboratory Tests Test 02/15/19 16:53 02/15/19 21:47 02/16/19 03:45 02/16/19 08:07 Glucose (Fingerstick) 122 mg/dL (70-99) 148 mg/dL (70-99) 123 mg/dL (70-99) Prothrombin Time 21.6 SEC (11.7-14.0) Prothromb Time International Ratio 1.9 (0.8-1.1) Test 02/16/19 12:05 02/16/19 17:10 02/16/19 20:06 02/17/19 07:20 Glucose (Fingerstick) 178 mg/dL (70-99) 171 mg/dL (70-99) 156 mg/dL (70-99) Prothrombin Time 25.4 SEC (11.7-14.0) Prothromb Time International Ratio 2.3 (0.8-1.1) Test 02/17/19 08:01 02/17/19 11:35 Glucose (Fingerstick) 119 mg/dL (70-99) 180 mg/dL (70-99) Laboratory Tests Test 02/16/19 12:05 02/16/19 17:10 02/16/19 20:06 02/17/19 07:20 Glucose (Fingerstick) 178 mg/dL (70-99) 171 mg/dL (70-99) 156 mg/dL (70-99) Prothrombin Time 25.4 SEC (11.7-14.0) Prothromb Time International Ratio 2.3 (0.8-1.1) Test 02/17/19 08:01 02/17/19 11:35 Glucose (Fingerstick) 119 mg/dL (70-99) 180 mg/dL (70-99) Microbiology 02/11/19 Blood Culture - Final, Complete NO GROWTH AFTER 5 DAYS 02/12/19 Anaerobic/Aerobic Culture - Preliminary, Resulted 02/12/19 Anaerobic Culture Result 1 (FREDERICK) - Preliminary, Resulted 02/12/19 Aerobic Culture - Final, Resulted 02/12/19 Aerobic Culture Result 1 (FREDERICK) - Final, Resulted 02/12/19 Aerobic Culture Result 2 (FREDERICK) - Final, Resulted 02/12/19 Antimicrobic Susceptibility - Final, Resulted 02/12/19 Gram Stain - Final, Resulted 02/12/19 Gram Stain Result 1 (FREDERICK) - Final, Resulted 02/12/19 Gram Stain Result 2 (FREDERICK) - Final, Resulted Medications Current Medications Ondansetron HCl (Zofran) 4 mg PRN Q6HRS PRN IV NAUSEA/VOMITING Last administered on 02/14/19at 11:26; Start 02/11/19 at 14:15 Acetaminophen/ Hydrocodone Bitart (Lortab 5/325) 1 tab PRN Q4HRS PRN PO MILD PAIN Last administered on 02/15/19at 21:59; Start 02/11/19 at 14:15 Acetaminophen (Tylenol) 650 mg PRN Q6HRS PRN PO Headaches, Temp > 101.5F; Start 02/11/19 at 14:15 Senna/Docusate Sodium (Senna Plus) 1 tab BID PO Last administered on 02/17/19at 08:29; Start 02/11/19 at 21:00 Lactulose (Lactulose) 20 gm PRN Q12HR PRN PO CONSTIPATION; Start 02/11/19 at 14:15 Heparin Sodium (Porcine) (Heparin Sodium) 5,000 unit Q8HRS SQ ; Start 02/11/19 at 22:00; Stop 02/12/19 at 13:53; Status DC Piperacillin Sod/ Tazobactam Sod 3.375 gm/Sodium Chloride 50 ml @ 100 mls/hr Q6HRS IV Last administered on 02/13/19at 05:50; Start 02/11/19 at 18:00; Stop 02/13/19 at 10:05; Status DC Micafungin Sodium 100 mg/Dextrose 100 ml @ 100 mls/hr Q24H IV Last administered on 02/14/19at 17:21; Start 02/11/19 at 16:00; Stop 02/15/19 at 1 3:33; Status DC Linezolid (Zyvox) 600 mg BID PO Last administered on 02/13/19at 20:44; Start 02/11/19 at 21:00; Stop 02/14/19 at 08:18; Status DC Insulin Glargine (Lantus) 10 units QHS SQ Last administered on 02/16/19at 20:55; Start 02/11/19 at 21:00 Insulin Human Lispro (HumaLOG) 0-7 UNITS TIDWMEALS SQ Last administered on 02/13/19at 16:54; Start 02/12/19 at 08:00; Stop 02/13/19 at 21:29; Status DC Dextrose (Dextrose 50%-Water Syringe) 12.5 gm PRN Q15MIN PRN IV SEE COMMENTS; Start 02/11/19 at 19:45 Zolpidem Tartrate (Ambien) 5 mg PRN QHS PRN PO INSOMNIA Last administered on 02/12/19at 22:20; Start 02/11/19 at 21:15 Lidocaine HCl 48 ml/Sodium Bicarbonate 12 meq/Miscellaneous 60 ml @ 60 mls/hr 1X ONCE ID ; Start 02/13/19 at 06:00; Stop 02/13/19 at 06:59; Status DC Ondansetron HCl (Zofran) 4 mg PRN Q6HRS PRN IV NAUSEA/VOMITING; Start 02/13/19 at 07:00; Stop 02/13/19 at 16:31; Status DC Fentanyl Citrate (Fentanyl 2ml Vial) 25 mcg PRN Q5MIN PRN IV MILD PAIN; Start 02/13/19 at 07:00; Stop 02/14/19 at 06:59; Status DC Fentanyl Citrate (Fentanyl 2ml Vial) 50 mcg PRN Q5MIN PRN IV MODERATE TO SEVERE PAIN; Start 02/13/19 at 07:00; Stop 02/14/19 at 06:59; Status DC Morphine Sulfate (Morphine Sulfate) 1 mg PRN Q10MIN PRN IV SEVERE PAIN; Start 02/13/19 at 07:00; Stop 02/14/19 at 06:59; Status DC Ringer's Solution 1,000 ml @ 30 mls/hr Q24H IV Last administered on 02/13/19at 09:46; Start 02/13/19 at 07:00; Stop 02/13/19 at 18:59; Status DC Lidocaine HCl (Xylocaine-Mpf 1% 2ml Vial) 2 ml PRN 1X PRN ID PRIOR TO IV START; Start 02/13/19 at 07:00; Stop 02/14/19 at 06:59; Status DC Hydromorphone HCl (Dilaudid) 0.5 mg PRN Q10MIN PRN IV SEV PAIN, Second choice; Start 02/13/19 at 07:00; Stop 02/14/19 at 06:59; Status DC Prochlorperazine Edisylate (Compazine) 5 mg PACU PRN PRN IV NAUSEA, MRX1 Last administered on 02/13/19at 11:38; Start 02/13/19 at 07:00; Stop 02/14/19 at 06:59; Status DC Phytonadione 5 mg/ Dextrose 50.5 ml @ 102 mls/hr 1X ONCE IV Last administered on 02/12/19at 15:30; Start 02/12/19 at 15:00; Stop 02/12/19 at 15:29; Status DC Propofol 20 ml @ As Directed STK-MED ONCE IV ; Start 02/13/19 at 09:42; Stop 02/13/19 at 09:43; Status DC Dexamethasone Sodium Phosphate (Decadron) 20 mg STK-MED ONCE .ROUTE ; Start 02/13/19 at 09:42; Stop 02/13/19 at 09:43; Status DC Lidocaine HCl (Lidocaine Pf 2% Vial) 5 ml STK-MED ONCE .ROUTE ; Start 02/13/19 at 09:42; Stop 02/13/19 at 09:43; Status DC Ondansetron HCl (Zofran) 4 mg STK-MED ONCE .ROUTE ; Start 02/13/19 at 09:42; Stop 02/13/19 at 09:43; Status DC Piperacillin Sod/ Tazobactam Sod 2.25 gm/Sodium Chloride 50 ml @ 100 mls/hr Q8HRS IV Last administered on 02/14/19at 06:10; Start 02/13/19 at 14:00; Stop 02/14/19 at 08:18; Status DC Ephedrine Sulfate (ePHEDrine PF IN SALINE SYRINGE) 50 mg STK-MED ONCE IV ; Sta rt 02/13/19 at 10:28; Stop 02/13/19 at 10:29; Status DC Vasopressin (Vasostrict) 20 unit STK-MED ONCE .ROUTE ; Start 02/13/19 at 10:31; Stop 02/13/19 at 10:32; Status DC Esmolol HCl (Brevibloc) 100 mg STK-MED ONCE IVP ; Start 02/13/19 at 10:44; Stop 02/13/19 at 10:45; Status DC Phenylephrine HCl (PHENYLEPHRINE in 0.9% NACL PF) 1 mg STK-MED ONCE IV ; Start 02/13/19 at 10:44; Stop 02/13/19 at 10:45; Status DC Ephedrine Sulfate (ePHEDrine PF IN SALINE SYRINGE) 50 mg STK-MED ONCE IV ; Start 02/13/19 at 10:44; Stop 02/13/19 at 10:45; Status DC Sevoflurane (Ultane) 30 ml STK-MED ONCE IH ; Start 02/13/19 at 11:00; Stop 02/13/19 at 11:01; Status DC Morphine Sulfate (Morphine Sulfate) 2 mg PRN Q2HR PRN IV PAIN Last administered on 02/13/19at 20:44; Start 02/13/19 at 11:30 Acetaminophen/ Hydrocodone Bitart (Lortab 5/325) 2 tab PRN Q4HRS PRN PO MODERATE - SEVERE PAIN; Start 02/13/19 at 11:30 Heparin Sodium/ Dextrose 500 ml @ 0 mls/hr CONT PRN IV SEE I/O RECORD Last administered on 02/16/19at 01:39; Start 02/13/19 at 12:30; Stop 02/17/19 at 10:31; Status DC Info (Anti-Coagulation Monitoring By Pharmacy) 1 each PRN DAILY PRN MC SEE COMMENTS Last administered on 02/14/19at 13:22; Start 02/13/19 at 11:45; Stop 02/16/19 at 07:31; Status DC Metoprolol Tartrate (Lopressor Vial) 5 mg 1X ONCE IVP ; Start 02/13/19 at 12:15; Stop 02/13/19 at 12:18; Status DC Digoxin (Lanoxin) 250 mcg 1X ONCE IV Last administered on 02/13/19at 12:26; Start 02/13/19 at 12:30; Stop 02/13/19 at 12:31; Status DC Lactobacillus Rhamnosus (Culturelle) 1 cap BID PO Last administered on 02/17/19at 08:30; Start 02/13/19 at 21:00 Aspirin (Ecotrin) 81 mg DAILY PO Last administered on 02/17/19at 08:30; Start 02/13/19 at 16:00 Metoprolol Succinate (Toprol Xl) 12.5 mg DAILY PO ; Start 02/13/19 at 16:00; Stop 02/14/19 at 10:24; Status DC Bumetanide (Bumex) 2 mg BID PO Last administered on 02/14/19at 08:34; Start 02/13/19 at 21:00; Stop 02/14/19 at 13:56; Status DC Atorvastatin Calcium (Lipitor) 80 mg QHS PO Last administered on 02/16/19at 20:45; Start 02/13/19 at 21:00 Diltiazem HCl 125 mg/Dextrose 125 ml @ 5 mls/hr CONT PRN IV SEE I/O RECORD Last administered on 02/13/19at 16:55; Start 02/13/19 at 16:15; Stop 02/14/19 at 11:19; Status DC Insulin Human Lispro (HumaLOG) 0-7 UNITS QIDACHS SQ Last administered on 02/15/19at 12:33; Start 02/14/19 at 07:30 Insulin Human Lispro (HumaLOG) 9 units 1X ONCE SQ Last administered on 9at 22:04; Start 02/13/19 at 21:30; Stop 02/13/19 at 21:31; Status DC Amoxicillin/ Clavulanate Potassium (Augmentin 500/ 125mg) 1 tab BID PO Last administered on 02/17/19at 08:30; Start 02/14/19 at 09:00 Doxycycline Hyclate (Vibra-Tab) 100 mg BID PO Last administered on 02/17/19 08:30; Start 02/14/19 at 09:00; Stop 02/17/19 at 08:37; Status DC Metoprolol Succinate (Toprol Xl) 25 mg DAILY PO Last administered on 02/17/19 08:30; Start 02/14/19 at 11:00 Insulin Human Lispro (HumaLOG) 4 units TIDWMEALS SQ Last administered on 02/16/19 17:55; Start 02/14/19 at 12:00 Heparin Sodium (Porcine) (Heparin Sodium) 2,000 unit PRN Q6HRS PRN IV FOR UFH LEVEL LESS THAN 0.2; Start 02/15/19 at 04:30; Status Cancel Linezolid (Zyvox) 600 mg BID PO Last administered on 02/17/19 08:30; Start 02/15/19 at 14:00; Stop 02/17/19 at 08:37; Status DC Warfarin Sodium (Coumadin) 4 mg DAILY16 PO Last administered on 02/16/19at 17:49; Start 02/15/19 at 16:00 Warfarin Sodium (Coumadin Per Physician) 1 each PRN DAILY PRN MC SEE COMMENTS Last administered on 02/16/19at 07:34; Start 02/15/19 at 14:45 Ondansetron HCl (Zofran Odt) 4 mg PRN Q6HRS PRN PO NAUSEA/VOMITING Last administered on 02/17/19at 10:48; Start 02/16/19 at 08:45 Active Scripts Active Humalog (Insulin Lispro) 100 Unit/1 Ml Insuln.pen 4 Units SQ TIDWMEALS MDD 1 30 Days Lantus Solostar (Insulin Glargine,Hum.rec.anlog) 100 Unit/1 Ml Insuln.pen 10 Units SQ QHS MDD 1 30 Days Hydrocodone-Apap 5-325 (Hydrocodone Bit/Acetaminophen) 1 Tab Tablet 2 Tab PO PRN Q4HRS PRN MDD 1 Amox Tr-K Clv 500-125 Mg Tab (Amoxicillin/Potassium Clav) 1 Each Tablet 1 Tab PO BID MDD 1 3 Days Reported Aspirin Ec (Aspirin) 81 Mg Tablet.dr 1 Tab PO DAILY Bumetanide 2 Mg Tablet 1 Tab PO BID Crestor (Rosuvastatin Calcium) 40 Mg Tablet 40 Mg PO HS Warfarin Sodium 4 Mg Tablet 4 Mg PO DAILY Metoprolol Succinate ( Xl ) (Metoprolol Succinate) 25 Mg Tab.er.24h 0.5 Tab PO DAILY Vitals/I & O Vital Sign - Last 24 Hours 02/16/19 02/16/19 02/16/19 02/16/19 15:06 18:40 19:40 23:50 Temp 97.1 97.4 97.1 97.1 97.4 97.1 Pulse 64 71 60 Resp 18 18 18 B/P (MAP) 125/61 (82) 133/86 (102) 106/53 (70) Pulse Ox 94 94 93 O2 Delivery Room Air Nasal Cannula Room Air Room Air O2 Flow Rate 2.0 02/17/19 02/17/19 02/17/19 02/17/19 03:00 07:00 08:00 08:30 Temp 97.0 97.6 97.0 97.6 Pulse 62 71 71 Resp 20 16 B/P (MAP) 142/61 (88) 114/73 (87) 114/73 Pulse Ox 92 97 O2 Delivery Room Air Room Air Room Air 02/17/19 11:27 Pulse 70 Resp 16 B/P (MAP) 136/63 (87) Pulse Ox 100 O2 Delivery Nasal Cannula O2 Flow Rate 2.0 Intake and Output 02/16/19 02/16/19 02/17/19 14:59 22:59 06:59 Intake Total 350 ml 350 ml Output Total 700 ml 850 ml Balance -350 ml -500 ml MARIZOL LOPEZ MD Feb 17, 2019 12:04
--- NOTE | 2019-02-17 12:06 | NUR ---
SS following up with discharge planning. Pt on PO medications now. Discharge orders received. SS phoned and faxed discharge orders and summary to [facility], ; fax [phone]. SS left a phone message for Miguel in admissions at [facility]. SS will await return call and will proceed accordingly with discharge.
--- NOTE | 2019-02-17 12:10 | PDOC ---
CARDIO Progress Notes Date and Time Date of Service 02/17/19 Time of Evaluation 1110 Subjective Subjective: No Chest Pain, No shortness of breath Vitals Vitals Vital Signs Date Time Temp Pulse Resp B/P (MAP) Pulse Ox O2 Delivery O2 Flow Rate FiO2 02/17/19 11:27 70 16 136/63 (87) 100 Nasal Cannula 2.0 02/17/19 07:00 97.6 97.6 Weight Weight [ ] Input and Output Intake and Output Intake and Output 02/17/19 06:59 Intake Total 700 ml Output Total 1550 ml Balance -850 ml Intake Oral 700 ml Output Urine Total 1550 ml # Bowel Movements 2 Laboratory Labs Laboratory Tests Test 02/16/19 17:10 02/16/19 20:06 02/17/19 07:20 02/17/19 08:01 Glucose (Fingerstick) 171 mg/dL (70-99) 156 mg/dL (70-99) 119 mg/dL (70-99) Prothrombin Time 25.4 SEC (11.7-14.0) Prothromb Time International Ratio 2.3 (0.8-1.1) Test 02/17/19 11:35 Glucose (Fingerstick) 180 mg/dL (70-99) Microbiology Micro Microbiology 02/11/19 Blood Culture - Final, Complete NO GROWTH AFTER 5 DAYS 02/12/19 Anaerobic/Aerobic Culture - Preliminary, Resulted 02/12/19 Anaerobic Culture Result 1 (FREDERICK) - Preliminary, Resulted 02/12/19 Aerobic Culture - Final, Resulted 02/12/19 Aerobic Culture Result 1 (FREDERICK) - Final, Resulted 02/12/19 Aerobic Culture Result 2 (FREDERICK) - Final, Resulted 02/12/19 Antimicrobic Susceptibility - Final, Resulted 02/12/19 Gram Stain - Final, Resulted 02/12/19 Gram Stain Result 1 (FREDERICK) - Final, Resulted 02/12/19 Gram Stain Result 2 (FREDERICK) - Final, Resulted Physical Exam HEENT: Neck Supple W Full Motion Chest: Symmetric LUNGS: Clear to Auscultation Heart: S1S2, murmurs (4/6 GIOVANNY murmur), irregularly irregular (tele AFIB with controlle rate) Abdomen: Soft N/T Extremities: Other (drsg intact to bilateral LE) Neurology: alert, oriented, follow commands Assessment Assessment 1. PAD/chronic wounds; s/p left 2nd and 3rd toe amputation and debridement of bilateral foot ulcers 2. Chronic AFIB; rate controlled 3. Hypertension; controlled 4. Hyperlipidemia; statin 5. 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 compensated. 7. Diabetes, II 8. SIMA on CKD; Cr 2.5 9. PPM; s/p explantation due to infection Recommendations Metoprolol for rate control chronic anticoagulation with warfarin Lasix PRN Supportive care Will need close f/u with [facility] upon discharge. TERRY DAVID APRN Feb 17, 2019 12:10
--- NOTE | 2019-02-17 12:18 | NUR ---
SS following up with discharge planning. [place] contacted SS and stated that discharge orders have been received. Pt will discharge today and go to [facility] at 1400. [place] to provide transportation. Pt and pt's RN notified. SS attempted to contact pt's son, Bolivar, by phone and when the phone was answered a female picked up the phone and stated that we had the incorrect phone number. Pt's RN attempting to verify son's phone number with pt and will notify SS if received.
--- NOTE | 2019-02-17 13:27 | NUR ---
SS following up with discharge planning. Pt contacted her son in room via phone and notified of discharge.
--- NOTE | 2019-02-17 14:14 | NUR ---
Patient discharged to [facility], set up by Melissa director social welfare. Patient understands discharge instructions. Patient alert and stable upon discharge. This RN gave report to Kathia BLAKELY. Patient understands follow ups with Dr. Luke and Dr. Degroot. Patient picked up by transport personnel. IV line discontinued. Belongings returned to patient from security and from chart.
--- NOTE | 2019-02-17 15:06 | PATHOLOGY ---
[facility] Accession Number: [id number] . 01 Material submitted: . foot - LEFT FOOT, 2ND AND 3RD TOES. Modifiers: left, second, third . 01 Clinical history: . None provided. . 02 Diagnosis: "Second and third toes, left", amputation: - Second toe skin with focal ulceration and adjacent hyperkeratosis. - Bone of second toe with focal acute osteomyelitis. - Attached third toe with no evidence of skin ulceration or acute osteomyelitis. . (SKM:freddy; 02/17/2019) [facility]/02/17/2019 . 02 Electronically signed: . James Hogan MD, Pathologist NPI- [id number] . 01 Gross description: . Received in formalin labeled "Bertha Moss, left foot, second and third toes" is a 4.0 x 3.2 x 1.8 cm specimen consisting of two attached toes and proximal skin and soft tissue. The toes measure 3.4 x 1.6 x 1.4 cm and 3.7 x 1.8 x 1.6 cm. The second toe displays a kuo-white, exophytic nail measuring 1.6 x 1.2 x 0.9 cm, and the third toe displays a kuo-yellow, roughened nail measuring 1.2 x 1.0 x 0.4 cm. The toes are adherent to each other, with a kuo-white ulcerated roughened lesion at the distal aspect of the second toe. The lesion measures 2.0 x 1.8 x 1.5 cm, and is located 1.0 cm to the closest skin and soft tissue margin (inked black). The proximal bone margins are smooth and consistent with surgical margins. The lesion is located 2.5 cm from the closest bone margin. Upon sectioning the specimen, the lesion abuts the underlying bone (distal phalanx of second toe). Vegetable Buncher sections are submitted as follows: A1-A2 product sales representative cross section of third toe (decalcified) A3-A4 product sales representative cross-section of second toe (decalcified) A5 lesion to underlying bone (decalcified) ([facility]; 02/13/2019) SYC/SYC . 02 Pathologist provided ICD-10: M86.172, L57.0 . 02 CPT . 209414, 808244 Specimen Comment: A courtesy copy of this report has been sent to Specimen Comment: [phone], . Specimen Comment: Report sent to / DR FRIAS Performed at: 01 [facility] [address], [place] [id number] MD Elie Nazario MD Phone: [phone] Performed at: 02 [facility] [address] [place], [place] [id number] MD Bolivar Cyr MD Phone: [phone]
[2019-03-31] MEDS ORDERED: INSU100I13 SQ (15:46)
[2019-03-31] MEDS ORDERED: FERR325T14 PO (15:50)
[2019-03-31] MEDS ORDERED: GUAI600T47 PO (15:50)
[2019-03-31] MEDS ORDERED: [UNRECOGNIZED DRUG - CODE] PO (15:51)
== END 2019-02-17 14:52 | DRG 616 ==
LOC: 5 NORTH 12:41 → 2 NORTH 02-13 12:46
PROVIDERS: ADMIT Internal Medicine; ATTEND Internal Medicine
PROC: 0JBQ0ZZ Excision of Right Foot Subcutaneous Tissue and Fascia, Open Approach (ICD-10-PCS; 2019-02-13)
PROC: 0Y6U0Z1 Detachment at Left 3rd Toe, High, Open Approach (ICD-10-PCS; 2019-02-13)
PROC: 0JBQ0ZZ Excision of Right Foot Subcutaneous Tissue and Fascia, Open Approach (ICD-10-PCS; 2019-02-13)
PROC: 0Y6S0Z1 Detachment at Left 2nd Toe, High, Open Approach (ICD-10-PCS; principal; 2019-02-13 10:10)
DX: E11.69 Type 2 diabetes mellitus with other specified complication (principal); E43 Unspecified severe protein-calorie malnutrition; M86.9 Osteomyelitis, unspecified; L03.115 Cellulitis of right lower limb; L03.116 Cellulitis of left lower limb; I13.0 Hypertensive heart and chronic kidney disease with heart failure and stage 1 through stage 4 chronic kidney disease, or unspecified chronic kidney disease; I50.42 Chronic combined systolic (congestive) and diastolic (congestive) heart failure; N17.9 Acute kidney failure, unspecified; E11.621 Type 2 diabetes mellitus with foot ulcer; E11.22 Type 2 diabetes mellitus with diabetic chronic kidney disease; E11.42 Type 2 diabetes mellitus with diabetic polyneuropathy; E11.51 Type 2 diabetes mellitus with diabetic peripheral angiopathy without gangrene; L97.529 Non-pressure chronic ulcer of other part of left foot with unspecified severity; L97.519 Non-pressure chronic ulcer of other part of right foot with unspecified severity; B35.1 Tinea unguium; E78.5 Hyperlipidemia, unspecified; F17.210 Nicotine dependence, cigarettes, uncomplicated; L89.619 Pressure ulcer of right heel, unspecified stage; I25.10 Atherosclerotic heart disease of native coronary artery without angina pectoris; I25.5 Ischemic cardiomyopathy; I48.2 Chronic atrial fibrillation; N18.9 Chronic kidney disease, unspecified; F32.9 Major depressive disorder, single episode, unspecified; F41.9 Anxiety disorder, unspecified; G89.29 Other chronic pain; M19.90 Unspecified osteoarthritis, unspecified site; Q70.32 Webbed toes, left foot; Z68.32 Body mass index [BMI] 32.0-32.9, adult; Z82.49 Family history of ischemic heart disease and other diseases of the circulatory system; Z83.3 Family history of diabetes mellitus; Z87.440 Personal history of urinary (tract) infections; Z90.710 Acquired absence of both cervix and uterus; Z95.2 Presence of prosthetic heart valve
CPT/HCPCS: 36415; 71045; 80048; 80053; 82962; 85025; 85520; 85610; 85730; 87040; 87071; 87075; 87186; 87641; 88305; 88311; 93005; 93306; 93925; 97597; 99406; A7015; J0171; J0780; J1100; J1160; J1815; J2001; J2248; J2270; J2370; J2405; J2543; J2704; J3430; J3490; J7030; J7120; Q0162; 97535; A4461